=== PATIENT | male | born 1955 | race Caucasian/White ===

== ENCOUNTER 2024-07-17 12:57 | Inpatient (IN) ==
[2024-07-17 14:04] LABS: Hematocrit (blood only) 34.7 % (42.0-52.0); Hemoglobin 11.7 g/dl (14.0-18.0); Mean Corpuscular Hemoglobin 29.1 pg (25.0-34.0); Mean Corpuscular Hgb Conc 33.7 g/dL (32.0-36.0); Mean Corpuscular Volume 86.3 fL (80.0-100.0); Mean Platelet Volume 10.1 fL (9.4-12.4); Platelet Count 292 K/uL (130-400); RDW Coefficient of Variation 13.4 % (11.5-14.5); RDW Standard Deviation 41.5 fL (36.4-46.3); Red Blood Count 4.02 M/uL (4.70-6.10); White Blood Count 9.02 K/ul (4.8-10.8)
[2024-07-17 14:17] LABS: Albumin Globulin Ratio 1.7 (0.9-2); Albumin Level 4.1 gm/dl (3.4-5.0); BUN Creatinine Ratio 32.1 (10-20); Calcium 8.8 mg/dl (8.6-10.3); Creatinine Clr Calc Pharmacy 76.5 ml/min; Globulin 2.4 gm/dl (2.5-4.0); Potassium 4.3 mmol/L (3.5-5.1); Total Protein 6.5 gm/dl (6.0-8.3)
[2024-07-17 14:27] LABS: INR 1.1 (0.9-1.1); Partial Thromboplastin Ratio 0.9; Partial Thromboplastin Time 23 Seconds (21-31)
[2024-07-17] MEDS: PANTOprazole 80 MG in DEXTROSE 5% 100 ML IV ONE (16:43)
[2024-07-17] MEDS: PANTOPRAZOLE BOLUS/DRIP IV STA (16:43)
[2024-07-17] MEDS: PANTOprazole 40 MG in DEXTROSE 5% MINI-B 100 ML IV SCH (17:01)
--- NOTE | 2024-07-17 17:06 | History & Physical Report ---
Date of Service July 17, 2024 Assessment & Plan (1) Gastrointestinal hemorrhage with melena: (2) Acute blood loss anemia: Plan: 69 year old male with history of recurrent DVT on Coumadin, CAD, status post stent placement on aspirin, bradycardia status post pacemaker, other problems below presenting with melena which started last week. Melena Acute blood loss anemia On chronic Coumadin for recurrent DVT, on chronic aspirin for CAD Hemoglobin last Thursday at [facility] 11 as per patient, currently 11.7 Last bowel movement was Thursday, 2 days ago Will order CT abdomen and pelvis H&H every 6 hours Transfuse for hemoglobin below 8 given history of CAD, Transfusion consent obtained, placed in patient's chart Protonix drip N.p.o., IV fluids GI consulted CAD, status post stent No cardiac symptoms Hold aspirin in light of GI bleed Hold lisinopril in light of marginal blood pressure Continue metoprolol Bradycardia, status post pacemaker History of recurrent DVT Most recent episode 2022 Hold Coumadin GI evaluation per above Resume Coumadin once cleared by GI service History of obstructive sleep apnea Will verify if patient uses BiPAP DVT prophylaxis SCDs Full code Disposition lives at home History of Present Illness Chief Complaint: melena Primary Care Provider: Mich Browne PA-C 69 year old male with history of recurrent DVT on Coumadin, CAD, status post stent placement on aspirin, bradycardia status post pacemaker, other problems below presenting with melena which started last week. Patient reports that he started to have melena last and went to [facility] for evaluation last Thursday. His hemoglobin was found to be 11 and INR 3.0. He was given vitamin K and was advised to be admitted. However patient states he declined admission at the time. He was given vitamin K p.o. to take at home which the patient has been taking. As per patient, he has had no bowel movement since Thursday. Denies abdominal pain, nausea vomiting, fevers or chills. He does report some lightheadedness with ambulation, but no chest pain, shortness of breath. Today at [facility], blood pressure 115/79, heart rate 60, respiratory 20, 100% on room air. Hemoglobin 11.7, INR 1.1 Patient given Protonix drip. On exam patient seen resting in bed, comfortable, doing sudoku puzzles, not in distress. States he feels fine overall, no melena since Thursday, no abdominal pain, nausea or vomiting. No active chest pain, shortness of breath, dizziness, palpitations, etc. Allergies Allergy/AdvReac Type Severity Reaction Status Date / Time ceftriaxone Allergy Rash and Verified 07/17/24 16:56 muscle pain..per [facility] [place] Medications Medication Instructions Recorded Confirmed Type aspirin 81 mg tablet,delayed 81 mg PO DAILY 07/17/24 07/17/24 History release cholecalciferol (vitamin D3) 50 50 mcg PO DAILY 07/17/24 07/17/24 History mcg (2,000 unit) capsule (Vitamin D3) lisinopril 20 mg tablet 10 mg PO DAILY 07/17/24 07/17/24 History metoprolol succinate 25 mg 25 mg PO QAM 07/17/24 07/17/24 History tablet,extended release 24 hr rosuvastatin 5 mg tablet 5 mg PO DAILY 07/17/24 07/17/24 History warfarin 5 mg tablet See Rx Instructions .Route .COMPLEX 07/17/24 07/17/24 History Past Med/Surg History Problem List (Updated 07/17/24 @ 17:32 by Jeovanny Pond MD) Acute blood loss anemia Gastrointestinal hemorrhage with melena Social History Smoking Status: Never smoker Preferred Language: Urdu Feels Safe at Home: Yes Review of Systems Review of Systems: all noted and negative except for above Physical Exam Physical Exam: General- oriented x 3, not in distress, speaks in sentences with no effort or accessory muscle use Head- atraumatic Eyes- PERRL, EOMI, anicteric ENT- oropharynx clear Neck- supple, no JVD, no adenopathy, no thyromegaly; carotids +2/2, no bruits appreciated Lungs- clear to auscultation bilaterally, no rales/wheezes Heart- normal rate, regular rhythm; no murmur, no gallop, no rub appreciated Abdomen- normal bowel sounds, nondistended, soft, nontender, no masses or hepatosplenomegaly Extremities- no pretibial edema, no calf tenderness; peripheral pulses intact Neuro- alert, oriented x 3; CN 2-12 grossly intact; motor 5/5 bilaterally;sensation 100% on all extremities; no other gross focal neurologic deficits Skin- warm & dry Results & Data Results & Data Vital Signs (Past 12 Hours) Vital Signs Temp Pulse Pulse Resp BP BP Pulse Ox 07/17/24 16:00 60 17 114/73 95 07/17/24 15:30 121/80 07/17/24 15:30 63 26 H 99 07/17/24 15:12 68 17 98 07/17/24 15:06 60 17 99 07/17/24 14:57 60 07/17/24 14:55 60 14 112/77 99 07/17/24 14:54 60 18 99 07/17/24 14:51 63 18 99 07/17/24 13:06 36.8 C 60 20 115/79 100 O2 Del Method 07/17/24 16:00 07/17/24 15:30 07/17/24 15:30 07/17/24 15:12 07/17/24 15:06 07/17/24 14:57 07/17/24 14:55 Room Air 07/17/24 14:54 Room Air 07/17/24 14:51 07/17/24 13:06 Room Air all noted and negative except for above Code Status & VTE Plan VTE Prophylaxis Plan VTE Prophylaxis will be ordered: Yes
--- OUTSIDE RECORDS SUMMARY | 2024-07-17 18:10 | External Medical Summary ---
Author Name Unknown Address Unknown Organization K01:LABORATORY [facility] [place] - [address] [place] [address] Laboratory Report Ordering Provider Test Date Status ABDELRAHMANCAMWAYNE 05/16/2024 07:22:09 Final Standing order for pt/inr. < br/>Please draw pt/inr every 1 to 4 weeks as requested
Results to [facility]

Warfarin Therapy
INR: 2.0-3.0 conventional anticoagulation
INR: 2.5-3.5 high intensity anticoagulation Observation Date Value Abnormality Reference (Units ) Status PT 05/16/2024 07:22:09 25.0 Above high normal 11 .6-15.2 (seconds) Final INR 05/16/2024 07:22:09 2.2 Above high normal 0. 8-1.2 Final Performing Location [facility]AT[facility] [place] [facility] [address] [facility] [address]
--- OUTSIDE RECORDS SUMMARY | 2024-07-17 18:10 | External Medical Summary | Summary of Care ---
Author Name Unknown Organization [facility] Address [address] [place] [facility] [place] [address] Phone [phone] Care Team Providers Care Soft Work Cigar Machine Operator Name Role Phone Mich Browne PA-C Primary Care Provide r Reason for Visit * Reason Comments Dosage Adjustment Via Phone (anticoag Cl inic) Encounter Details Date Type Department Care Team (Late st Contact Info) Description 05/17/2024 6:15 AM EST Anticoagulation Centralized Clinical Pharm[facility] Services, Rachael Erickson [address] [place] [address] [place] [address] [place] [address] History of recurrent deep vein thrombosis (DVT)* Allergies Active Allergy Reactions Criticality Noted Date Comments Ceftriaxone Muscle pain,Rash High 08/26/2010 RASH, MYALGIAS, SYNOVITIS documented as of this encounter (statuses as of 05/17/2024) Medications Aspirin 81 MG Tablet Take 1 Tablet by mouth in the morning. Active nitroglycerin (NITROSTAT) 0.4 MG SUBL 03/15/20 19 Active Cholecalciferol (VITAMIN D) 50 MCG (1999 UT) Capsule Take 2,000 Units by mouth daily. Active doxycycline hyclate 100 MG Capsule Take 1 tab daily as needed 30 Cap 5 06/17/20 19 Active Lisinopril 20 MG Oral Tablet (Prinivil) 0.5 Tablets. 10/16/19 23 Active Warfarin Sodium 5 MG Oral Tablet (Coumadin) Take 1 Tablet by mouth every evening. 30 Tablet 5 02/17/20 23 Active Additional Information Patient taking differently: 7.5 mgOral QPM-1999, Reported on 03/02/2023 Metoprolol Succinate ER 25 MG Oral Tablet Extended Release 24 Hour (toPROL XL) Take 1 Tablet by mouth in the morning. 08/10/19 24 Active Sildenafil Citrate 100 MG Oral TabletIndications: Erectile dysfunction, unspecified erectile dysfunction type Take 1 Tablet by mouth daily as needed for Erectile Dysfunction. 10 Tablet 5 03/18/20 24 Active Warfarin Sodium 5 MG Oral Tablet (Jantoven) TAKE 1.5 to 2 TABLETS BY MOUTH DAILY DIRECTED BY COUMADIN CLINIC ON PHONE 180 Tablet 1 05/12/20 24 Active Rosuvastatin Calcium 5 MG Oral Tablet (Crestor)Indicatio ns:S/P angioplasty with stent,Mixed hyperlipidemia Take 1 Tablet by mouth in the morning. In the morning.. 90 Tablet 3 05/16/20 24 Active documented as of this encounter (statuses as of 05/17/2024) Active Problems Problem Noted Date Diagnosed Date Coronary artery disease invo lving [place] coronary artery of [place] heart without angina pectoris 08/12/2023 LISA (obstructive sleep apnea) 08/12/2023 History of recurrent deep vein thrombosis (DVT) 08/12/2023 Gilbert's disease 09/29/2022 S/P angioplasty with stent 04/16/2022 Overview (04/16/2022): LAD. Hyperlipidemia with target LDL less than 70 01/03 Status post placement of implantable loop record er 01/21/2022 Nocturia 01/21/2022 Vitamin D deficiency 01/21/2022 Non-recurrent unilateral inguinal hernia 022 History of nonmelanoma skin cancer 05/21/2017 Overview (05/21/2017): Hx of BCC on left neck - 2011 History of dysplastic nevus 05/31/2014 Actinic keratosis 06/01/2013 History of basal cell carcinoma 06/01/2013 Eosinophilia 09/24/2010 HX TRAUMATIC FRACTURE, LFT LEG 08/13/2010 documented as of this encounter (statuses as of 05/17/2024) Resolved Problems Problem Noted Date Diagnosed Date Resolved Date Prediabetes 08/12/2023 08/20/2023 Acute deep vein thrombosis ( DVT) of axillary vein of left upper extremity 02/13/2023 08/20/2023 Abrasion of arm, left 01/21/20222021 Neoplasm of uncertain behavior of skin 06/01/2013 01/21/2022 Rosacea 06/01/2013 01/21/2022 Other seborrheic keratosis 06/01/2013 0 01/21/2022 BLEPHARITIS, left eye 09/24/20102021 Venous thrombosis 08/22/2010 01/21/2022 TENOSYNOVITIS, RIGHT FOOT 08/18/2010 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 VASCULITIS 08/18/2010 01/21/2022 Rash and nonspecific skin eruption 08/17/2010 01/21/2022 DERMATITIS 08/13/2010 01/21/2022 SEPTIC [id number] 08/13/201001/03 Abnormal electrocardiogram 11/23/2009 0 2023 Loss of height 11/23/2009 01/21/2022 documented as of this encounter (statuses as of 05/17/2024) Immunizations Name Administration Dates Next Due COVID-19 mRNA, LNP-s, No Pre serve, 2-Dose Series (Pfizer) 09/12/2020,08/14/2020 PPD 02/16/2023 Pneumococcal Conjugate Vaccine, 20-valent (Prevn ar20) 09/29/2022 Seasonal Influenza, High Dos e, Trivalent, PF, IM (Fluzone HD) 03/18/2024 Seasonal Influenza, Quadrivalent Hd (Fluzone Hd) 04/16/2022 TDAP (age 10 and older)(Boostrix) 01/21/2022 documented as of this encounter Social History Tobacco Use Types Packs/Day Years Used Date Smoking Tobacco: Never Smokeless Tobacco: Never Alcohol Use Standard Drinks/Week Comments Yes 0 (1 standard drink = 0.6 oz pur e alcohol) moderation PHQ-2 Answer Date Recorded PHQ Adult Total Score 0 05/11/2023 Hunger Vital Sign Answer Date Recorded Within the past 12 months, y ou worried that your food would run out before you got the money to buy more. Never true 05/11/20 23 Within the past 12 months, t he food you bought just didn't last and you didn't have money to get more. Never true 05/11/2023 Childcare Answer Date Recorded Do you feel overwhelmed with taking care of a child, family member or friend? No 05/11/2023 Does your family need help f inding childcare? (Household - for ages 0-17 years) Not on file 05/11/2023 Clothing Answer Date Recorded Have you been unable to get clothing when it was really needed? No 05/11/2023 Is your family able to get c lothes or diapers when needed? (Household - for ages 0-17 years) Not on file 05/11/2023 Personal Safety Answer Date Recorded Do you feel unsafe or have concerns for your saf ety? No 05/11/2023 Do you have concerns for you r family's safety? (Household - for ages 0-17 years) Not on file 05/11/2023 Utilities Answer Date Recorded Do you have trouble paying y our heating, water, or electric bill? (Adult - for ages 18 years and over) Not on file 05/12/2024 Is your family able to pay t he heat, water, or electric bill? (Household - for ages 0-17 years) Not on file 05/12/2024 Does your family have access to good internet? (Household - for ages 0-17 years) Not on file 05/12/2024 Employment Status Answer Date Recorded Are you unemployed or without regular income? No 05/11/2023 Does the household have a re lar source of income? (Household - for ages 0-17 years) Not on file 05/11/2023 Social Connections Answer Date Recorded How often do you feel lonely or isolated from those around you? (Adult - for ages 18 years and over) Not on file 05/12/2024 Financial Resource Strain Answer Date R ecorded Do you have any trouble payi ng for your medications, or do you think you might in the future? No 05/11/2023 Does your family have troubl e paying for medicine? (Household - for ages 0-17 years) Not on file 05/11/2023 Transportation Needs Answer Date Record ed READ ONLY Do you have troubl e getting a ride to medical visits or work? Never True 05/11/2023 Does your family have a hard time getting a ride to doctors visits? (Household - for ages 0-17 years) Not on file 05/11/2023 Has lack of transportation k ept you from medical appointments, meetings, work, or from getting things needed for daily living? Check all that apply. (Adult - for ages 18 years and over) Not on file 05/11/2023 Do you (or your family) have trouble finding or paying for a ride (transportation)? (Household - for ages 0-17 years) Not on file 05/11/2023 Housing Stability Answer Date Recorded Do you currently live in a s helter or have no steady place to sleep at night? No 05/11/2023 READ ONLY Do you think you a re at risk of becoming homeless? No 05/11/2023 Does your family worry about paying for your home or becoming homeless? (Household - for ages 0-17 years) Not on file 1 07/11/2022 Are you homeless or worried that you might be in the future? (Adult - for ages 18 years and over) Not on file Are you (or your family) ezra eless or worried that you might be in the future? (Household - for ages 0-17 years) Not on file Food Insecurity Answer Date Recorded Do you need food for this week? No 05/11/2023 Are you able to get enough f ood for your family? (Household - for ages 0-17 years) Not on file 05/11/2023 Does your family need food t his week? (Household - for ages 0-17 years) Not on file 05/11/2023 Do you always have enough fo od for your family? (Household - for ages 0-17 years) Not on file 05/11/2023 Sex and Gender Information Value Date Recorded Sex Assigned at Male 05/11/2023 8:24 AM EST Legal Sex Male 6:45 AM EST Gender Identity Male 05/11/2023 8:24 AM EST Sexual Orientation Straight 05/11/2023 8: 24 AM EST documented as of this encounter Progress Notes * Caroline Kidd PHARM Tech - 05/17/2024 9:11 AM EST Contacts Contact Date/Time Type Contact Phone/Fax 05/17/2024 09:09 AM EST Phone (Outgoing) Jatin Muñiz (Self) [phone] (M) spoke to pt Subjective Patient Findings Negatives: Signs/symptoms of bleeding, Change in health, Change in activity, Upcoming invasive procedure, Missed doses, Extra doses, Change in medications, Change in diet/appetite, Bruising Advised patient to contact Anticoagulation Clinic if any unusual bruising or bleeding, recent illness, changes in medication, or questions/concerns. PT/INR results, Coumadin dose instructions, and next PT/INR date communicated as noted by Pharmacist: Yes ORTIZ DEL TORO 05/17/2024, 9:11 AM * Kalpana Canales RPh - 05/17/2024 8:59 AM EST Coumadin Clinic (region specific) Objective Current Warfarin Dose As of 05/17/2024 Warfarin maintenance plan: 10 mg (5 mg x 2) every Mon; 7.5 mg (5 mg x 1.5) all other days INR Result As of 05/17/2024 INR goal: 2.0-3.0 INR used for dosin.2 (05/16/2024) Assessment & Plan Warfarin Plan As of 05/17/2024 Full warfarin instructions: 10 mg every Mon; 7.5 mg all other days No change documented: Kalpana Canales RPh Next INR check: 05/30/2024 Repeat PT/INR in 2 week(s) Weekly dose: not changed Additional Dosing Information: Description [facility] 05/17/24 Tech to contact patient with dose instructions as noted. Kalpana Canales RPh 05/17/2024, 8:59 AM documented in this encounter Plan of Treatment Upcoming Encounters Date Type Department Care Team (Late st Contact Info) Description 06/14/2024 11:00 AM EST Office Visit Hematology/Oncology [address] [place] [address] [facility] [place], [place] [address] Lawrence Harris MD [address] [facility] [place] [address] 10/10/2024 8:00 AM EDT Office Visit Family Practice [address] [place] [address] Mich Browne PA-C [address] [place] [address] 10/13/2024 9:20 AM EDT Office Visit Dermatology, Alysa Pelayo [address] [place] [address] Jennifer Graham PA-C [address] [place] [address] Health Maintenance Due Date Last Done Comments Hepatitis C Screening 1973 Cologuard 01/14/2000 Fecal Occult Blood Test 01/14/2000 Sigmoidoscopy 01/14/2000 Zoster Vaccines (1 of 2) 2005 Adult Wellness Visit 2021 Colonoscopy 11/19/2023 11/18/2013 Colorectal Cancer Screening 11/19/2023 COVID-19 Vaccine ( season) 2024 09/12/2020, 08/14/2020 Depression Screening 05/11/2024 05/11/2023 Diabetes Screening 03/18/2027 03/18/2024, 0 03/18/2024, 12/11/2023, Additional history exists DTap/Tdap Vaccines (2 - Td or Tdap) 01/22/2032 01/21/2022 Pneumococcal Vaccine: 65+ Years Completed 09/29/2022 Influenza Vaccine (FLU shot) Completed 03/18/2024, 04/16/2022 HPV (Gardasil) Vaccine Aged Out No lo nger eligible based on patient's age to complete this topic Hepatitis B Vaccine Aged Out No longe r eligible based on patient's age to complete this topic MENINGOCOCCAL (MENACTRA/MENVEO) Aged Out No longer eligible based on patient's age to complete this topic documented as of this encounter Medical Devices Not on filedocumented as of this encounter Visit Diagnoses Diagnosis History of recurrent deep vein thrombosis (DVT)- Primary documented in this encounter Advance Directives * Full Code (Latest Code Status on File) Date Activated Date Inactivated Comments 08/17/2010 7:22 PM 08/22/2010 9:54 PM This order r eflects the patients wishes and were consensually agreed upon. Question Answer Comments Discussion of Advance Directives occurred with: Patient Does the patient have a Living Will? No Does the patient have Health Care Power of Attor janice? No Care Teams Soft Work Cigar Machine Operator Relationship Specialty Start Date End Date Mich Browne PA-C [address] [facility] [place] [address] PCP - General Physician Well Logger 10/08/23 documented as of this encounter
--- OUTSIDE RECORDS SUMMARY | 2024-07-17 18:10 | External Medical Summary ---
Author Name Unknown Address Unknown Organization K01:[place] [facility] [place] [address] [place] [address] Laboratory Report Ordering Provider Test Date Status ABDELRAHMANCAMWAYNE 05/30/2024 08:18:11 Final Standing order for pt/inr. < br/>Please draw pt/inr every 1 to 4 weeks as requested
Results to [facility]ticoagulation [facility]

Warfarin Therapy
INR: 2.0-3.0 conventional anticoagulation
INR: 2.5-3.5 high intensity anticoagulation Observation Date Value Abnormality Reference (Units ) Status PT 05/30/2024 08:18:11 29.3 Above high normal 11 .6-15.2 (seconds) Final INR 05/30/2024 08:18:11 2.7 Above high normal 0. 8-1.2 Final Performing Location [facility] [place] [facility] [address] [facility] [address]
--- OUTSIDE RECORDS SUMMARY | 2024-07-17 18:10 | External Medical Summary | Summary of Care ---
Author Name Unknown Organization [facility] Address [address] [place] [facility] [address] Phone [phone] Care Team Providers Care Manager Infusion Name Role Phone Mich Browne PA-C Primary Care Provide r Reason for Visit * Reason Comments Dosage Adjustment Via Phone (anticoag Cl inic) Encounter Details Date Type Department Care Team (Late st Contact Info) Description 05/16/2024 6:00 PM EST Anticoagulation Centralized Clinical Pharmacy Services, Rachael Erickson [address] [place] [address] [place] [address] [place] [address] History of recurrent deep vein thrombosis (DVT)* Allergies Active Allergy Reactions Criticality Noted Date Comments Ceftriaxone Muscle pain,Rash High 08/26/2010 RASH, MYALGIAS, SYNOVITIS documented as of this encounter (statuses as of 05/16/2024) Medications Aspirin 81 MG Tablet Take 1 [...] as of this encounter (statuses as of 05/16/2024) Active Problems Problem Noted Date Diagnosed Date Coronary artery disease invo lving [place] coronary artery of [place] heart without angina pectoris 08/12/2023 LISA (obstructive [...] as of this encounter (statuses as of 05/16/2024) Resolved Problems Problem Noted Date Diagnosed Date [...] eruption 08/17/2010 01/21/2022 DERMATITIS 08/13/2010 01/21/2022 SEPTIC [id number] 08/13/201001/03 Abnormal electrocardiogram 11/23/2009 0 2023 Loss of height 11/23/2009 01/21/2022 documented as of this encounter (statuses as of 05/16/2024) Immunizations Name Administration Dates Next Due COVID-19 [...] as of this encounter Progress Notes * Kalpana Canales RPh - 05/16/2024 4:19 PM EST 05/16/2024 04:19 PM EST by Kalpana Canales RPh Outgoing Jatin Muñiz (Self) Remove Left Message INR still in process at lab. Last INR was 2.0 on 05/06. Advised to take regular dose tonight. Will check result in AM and follow up with pt . Kalpana Bowens. Jaime Canales, Pharm.D. Clinical Pharmacist [facility] ([facility]) [phone] 05/16/2024,4:21 PM documented in this encounter Plan of Treatment Upcoming Encounters Date Type Department Care Team (Late st Contact Info) Description 05/17/2024 6:15 AM EST Anticoagulation Centralized Clinical Pharmacy Services, Rachael Erickson [address] [place] [address] [place] [address] [facility], [address] [place] [address] 05/17/2024 7:45 AM EST Office Visit [facility] Surgery [facility] [place] [address] [place] [address] Kalpana Ellsworth MD [address] [facility] [place] [address] 06/14/2024 11:00 AM EST Office Visit Hematology/Oncology [facility] [place] [address] [facility] [place] [id number] Lawrence Harris MD [address] [facility] [place] [address] 10/10/2024 8:00 AM EDT Office Visit [facility] [address] [place] [address] Mich Browne PA-C [address] [place] [address] 10/13/2024 9:20 AM EDT Office Visit Dermatology, Yaritza MarvinAlysa [address] [place] [address] Jennifer Graham PA-C [address] [place] [address] Health Maintenance Due Date Last Done Comments [...] Power of Attor janice? No Care Teams Manager Infusion Relationship Specialty Start Date End Date Mich Browne PA-C [address] [facility] [place] [address] PCP - General Physician Computer Systems Manager 10/08/23 documented as of this encounter
--- OUTSIDE RECORDS SUMMARY | 2024-07-17 18:10 | External Medical Summary | Summary of Care ---
Author Name Unknown Organization [facility] Address [address] [place] [address] Phone [phone] Care Team Providers Care Supervisor Toy Parts Former Name Role Phone Mich Browne PA-C Primary Care Provide r Reason for Visit * Reason Comments Dosage Adjustment Via Phone (anticoag Cl inic) Encounter Details Date Type Department Care Team (Late st Contact Info) Description 05/31/2024 6:15 AM EST Anticoagulation [facility], Rachael Erickson [address] [place] [address] [place] [address] [place] [address] History of recurrent deep vein thrombosis (DVT)* Allergies Active Allergy Reactions Criticality Noted Date Comments Ceftriaxone Muscle pain,Rash High 08/26/2010 RASH, MYALGIAS, SYNOVITIS documented as of this encounter (statuses as of 05/31/2024) Medications Aspirin 81 MG Tablet Take 1 [...] as of this encounter (statuses as of 05/31/2024) Active Problems Problem Noted Date Diagnosed Date [...] as of this encounter (statuses as of 05/31/2024) Resolved Problems Problem Noted Date Diagnosed Date [...] eruption 08/17/2010 01/21/2022 DERMATITIS 08/13/2010 01/21/2022 SEPTIC [id number] 08/13/201001/03 Abnormal electrocardiogram 11/23/2009 0 2023 Loss of height 11/23/2009 01/21/2022 documented as of this encounter (statuses as of 05/31/2024) Immunizations Name Administration Dates Next Due COVID-19 [...] y our heating, water, or electric bill? No 05/11/2023 Is your family able to pay t he heat, water, or electric bill? (Household - for ages 0-17 years) Not on file 05/11/2023 Does your family have access to good internet? (Household - for ages 0-17 years) Not on file 05/11/2023 Employment Status Answer Date Recorded Are you unemployed or without regular income? No 05/11/2023 Does the household have a re lar source of income? (Household - for ages 0-17 years) Not on file 05/11/2023 Social Connections Answer Date Recorded How often do you feel lonely or isolated from th ose around you? Never 05/11/2023 Financial Resource Strain Answer Date R ecorded [...] as of this encounter Progress Notes * Evelina Schmidt, [facility] - 05/31/2024 3:15 PM EST Contacts Contact Date/Time Type Contact Phone/Fax 05/31/2024 11:03 AM EST Phone (Outgoing) Jatin Muñiz (Self) [phone] (M) No Answer/Busy - No ID on VM 05/31/2024 03:14 PM EST Phone (Outgoing) ModestojonathanJatin bean (Self) [phone] (M) No Answer/Busy - No identifier on VM Unable to contact patient or leave message. MyG: no Please follow-up later. Thank you, Evelina Schmidt [facility] Filament Maker II [facility] Services ([facility]) 05/31/2024,3:15 PM * Kalpana Canales RPh - 05/31/2024 10:17 AM EST Contacts Contact Date/Time Type Contact Phone/Fax 05/31/2024 11:03 AM EST Phone (Outgoing) Jatin Muñiz (Self) [phone] (M) No Answer/Busy - No ID on 05/31/2024 03:14 PM EST Phone (Outgoing) Jatin Muñiz (Self) [phone] (M) No Answer/Busy - No identifier on 05/31/2024 03:31 PM EST Phone (Outgoing) Jatin Muñiz (Self) [phone] (M) Left Message Subjective Advised patient to contact Anticoagulation Clinic if any unusual bruising or bleeding, recent illness, changes in medication, or questions/concerns. PT/INR results, Coumadin dose instructions, and next PT/INR date communicated as noted by Pharmacist: Yes Advised to add name to so we can leave messages going forward. Kalpana Canales RPh 05/31/2024, 3:32 PM Coumadin Clinic (region specific) Objective Current Warfarin Dose As of 05/31/2024 Warfarin maintenance plan: 10 mg (5 mg x 2) every Mon; 7.5 mg (5 mg x 1.5) all other days INR Result As of 05/31/2024 INR goal: 2.0-3.0 INR used for dosin.7 (05/30/2024) Assessment & Plan Warfarin Plan As of 05/31/2024 Full warfarin instructions: 10 mg every Mon; 7.5 mg all other days No change documented: Kaplana Canales RPh Next INR check: 06/20/2024 Repeat PT/INR in 3 week(s) Weekly dose: not changed Additional Dosing Information: Description [facility] 05/17/24 Tech to contact patient with dose instructions as noted. Kalpana Canales RPh 05/31/2024, 10:17 AM documented in this encounter Plan of Treatment Upcoming Encounters Date Type Department Care Team (Late st Contact Info) Description 06/14/2024 11:00 AM EST Office Visit Hematology/Oncology [place] [address] [facility] [place] [phone] Lawrence Harris MD [address] [facility] [place] [address] 06/20/2024 8:30 AM EST Laboratory [facility] [place] [address] [place] [id number] [place], [facility] [place] Jitendra [address] [place] [address] 06/21/2024 6:15 AM EST Anticoagulation [facility] Services, Rachael Erickson [address] [place] [address] [place] [address] [place] [address] 10/10/2024 8:00 AM EDT Office Visit Family Practice [address], [address] [place] [address] Mich Browne PA-C [address] [place] [address] 10/13/2024 9:20 AM EDT Office Visit Dermatology, Alysa Pelayo [address] [place] [address] Jennifer Graham PA-C [address] [place] [address] Health Maintenance Due Date Last Done Comments [...] Power of Attor janice? No Care Teams Supervisor Toy Parts Former Relationship Specialty Start Date End Date Mich Browne PA-C [address] [facility] [place] [address] PCP - General Physician Lodging Facilities Attendant 10/08/23 documented as of this encounter
--- OUTSIDE RECORDS SUMMARY | 2024-07-17 18:10 | External Medical Summary | Summary of Care ---
Author Name Unknown Organization [facility] Address [address] [place] [place] [address] Phone [phone] Care Team Providers Care Offset Machine Operator Name Role Phone Mich Browne PA-C Primary Care Provide r Reason for Visit * Reason Comments Follow Up 6 month follow up Encounter Details Date Type Department Care Team (Late st Contact Info) Description 06/16/2024 2:30 PM EST Office Visit Hematology/Oncology [facility] [address] [place] [address] Juliann Kurtz, KALIE [address] [place] [address] History of recurrent deep vein thrombosis (DVT)* Allergies Active Allergy Reactions Criticality Noted Date Comments Ceftriaxone Muscle pain,Rash High 08/26/2010 RASH, MYALGIAS, SYNOVITIS documented as of this encounter (statuses as of 06/16/2024) Medications Aspirin 81 MG Tablet Take 1 [...] as of this encounter (statuses as of 06/16/2024) Active Problems Problem Noted Date Diagnosed Date Coronary artery disease invo lving [place] coronary artery of [place] heart without angina pectoris 08/12/2023 LISA (obstructive [...] as of this encounter (statuses as of 06/16/2024) Resolved Problems Problem Noted Date Diagnosed Date [...] eruption 08/17/2010 01/21/2022 DERMATITIS 08/13/2010 01/21/2022 SEPTIC [id number] 08/13/201001/03 Abnormal electrocardiogram 11/23/2009 0 2023 Loss of height 11/23/2009 01/21/2022 documented as of this encounter (statuses as of 06/16/2024) Immunizations Name Administration Dates Next Due COVID-19 [...] No 05/11/2023 Does the household have a unm children's hospitallar source of income? (Household - for ages [...] AM EST documented as of this encounter Last Filed Vital Signs Vital Sign Reading Time Taken Comments Blood Pressure 134/80 06/16/2024 2:41 PM EST Pulse 102 06/16/2024 2:41 PM EST Temperature 36.2 C (97.2 F) 06/16/2024 2:41 PM ES T Respiratory Rate - - Oxygen Saturation 97% 06/16/2024 2:41 PM EST Inhaled Oxygen Concentration - - Weight 103.5 kg (228 lb 3.2 oz) 06/16/2024 2:41 PM EST Height - - Body Mass Index 30.95 03/18/2024 8:13 AM EDT documented in this encounter Progress Notes * Juliann Kurtz CRNP - 06/16/2024 2:49 PM EST Hematology/Oncology Outpatient Clinic note [facility] [place] [address] [place] [address] Name: Jatin Muñiz Date: 06/16/2024 CHIEF COMPLAINT: Jatin Muñiz is a 69 year old male patient of Dr. Lawrence Harris here today for f/u visit From Patient chart confirmed history with patient. From Dr. Bravo Kimberly note 12/14/23 Diagnosis: Acute deep vein thrombosis (DVT) of axillary vein of left upper extremity Current Treatment: Coumadin Previous Treatment: Eliquis History : 69-year-old male with past medical history significant for coronary artery disease status post stent placement about 5 years ago, history of bradycardia status post pacemaker placement in 10/2022 presented with feeling of swelling and pressure in the left upper extremity on 12/2022. Doppler ultrasound was done which revealed evidence of acute DVT in the left upper extremity involving the subclavian and axillary veins and there was evidence of acute superficial thrombophlebitis in the basilic vein. Patient was started on Eliquis. He subsequently went to the urgent care with swelling and anticoagulation was changed to Lovenox with transition to Coumadin. Currently he is taking Coumadin and following anticoagulation clinic. He is feeling better with improvement in the pressure and swelling of the left lower extremity. History is also significant for left lower extremity DVT after the fracture of the left lower extremity. Denies smoking. Drinks rarely. Family history is negative for any hematologic oncology problem or DVT or pulmonary embolism. 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 Currently here for f/u visit today. He is taking Coumadin without any issues. No excessive bruising or bleeding. He does haveINR completed. No fever or chills. No unusual headache or dizziness. No chest pain, palpitation or shortness of breath. No issues with abdominal pain, cramping, constipation or diarrhea. No urinary issues. 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 DERMATITIS 08/13/2010 History of loop recorder HX TRAUMATIC FRACTURE, LFT LEG 08/13/2010 Loss of height 11/23/2009 Rash and nonspecific skin eruption 08/17/2010 SEPTIC [id number] 08/13/2010 TENOSYNOVITIS, RIGHT FOOT 08/18/2010 VASCULITIS 08/18/2010 Venous thrombosis 08/22/2010 Past Surgical History: Procedure Laterality Date CARDIAC STENT PLACEMENT, ATHERECTOMY, 1 VESSEL HC RIGHT HEART CATH KNEE ARTHROSCOPY/SURGERY 07/06/1973 open menisectomy, right Social History Socioeconomic History Marital status: Spouse name: Not on file Number of children: 3 Years of education: Not on file Highest education level: Not on file Occupational History Not on file Tobacco Use Smoking status: Never Smokeless tobacco: Never Vaping Use Vaping status: Never Used Substance and Sexual Activity Alcohol use: Yes Comment: moderation Drug use: No Sexual activity: Yes Partners: Female Other Topics Concern Not on file Social History Narrative Not on file Social Needs Financial Resource Strain: Low Risk (05/11/2023) Financial Resource Strain Do you have any trouble paying for your medications, or do you think you might in the future? (Adult - for ages 18 years and over): No Does your family have trouble paying for medicine? (Household - for ages 0-17 years): Not on file Food Insecurity: No Food Insecurity (05/11/2023) Food Insecurity Do you need food for this week? (Adult - for ages 18 years and over): No Are you able to get enough food for your family? (Household - for ages 0-17 years): Not on file Does your family need food this week? (Household - for ages 0-17 years): Not on file Do you always have enough food for your family? (Household - for ages 0-17 years): Not on file Transportation Needs: No Transportation Needs (05/11/2023) Transportation Needs Do you have trouble getting a ride to medical visits or work? (Adult - for ages 18 years and over):Never True Does your family have a hard time getting a ride to doctors visits? (Household - for ages 0-17 years): Not on file Has lack of transportation kept you from medical appointments, meetings, work, or from getting things needed for daily living? Check all that apply. (Adult - for ages 18 years and over): Not on file Do you (or your family) have trouble finding or paying for a ride (transportation)? (Household - for ages 0-17 years): Not on file Social Connections: Socially Integrated (05/11/2023) Social Connections How often do you feel lonely or isolated from those around you? (Adult - for ages 18 years and over): Never Housing Stability: Low Risk (05/11/2023) Housing Stability Do you currently live in a fci or have no steady place to sleep at night? (Adult - for ages 18 years and over): No Do you think you are at risk of becoming homeless? (Adult - for ages 18 years and over): No Does your family worry about paying for your home or becoming homeless? (Household - for ages 0-17 years): Not on file Are you homeless or worried that you might be in the future? (Adult - for ages 18 years and over): Not on file Are you (or your family) homeless or worried that you might be in the future? (Household - for ages0-17 years): Not on file Review of patient's allergies indicates: Allergen Reactions Ceftriaxone Muscle pain and Rash RASH, MYALGIAS, SYNOVITIS Current Outpatient Medications Medication Sig Dispense Refill Aspirin 81 MG Tablet Take 1 Tablet by mouth in the morning. nitroglycerin (NITROSTAT) 0.4 MG SUBL Cholecalciferol (VITAMIN D) 50 MCG (1999 UT) Capsule Take 2,000 Units by mouth daily. doxycycline hyclate 100 MG Capsule Take 1 tab daily as needed 30 Cap 5 Lisinopril 20 MG Oral Tablet (Prinivil) 0.5 Tablets. Warfarin Sodium 5 MG Oral Tablet (Coumadin) Take 1 Tablet by mouth every evening. (Patient taking differently: Take 1.5 Tablets by mouth every evening.) 30 Tablet 5 Metoprolol Succinate ER 25 MG Oral Tablet Extended Release 24 Hour (toPROL XL) Take 1 Tablet by mouth in the morning. Sildenafil Citrate 100 MG Oral Tablet Take 1 Tablet by mouth daily as needed for Erectile Dysfunction. 10 Tablet 5 Warfarin Sodium 5 MG Oral Tablet (Jantoven) TAKE 1.5 to 2 TABLETS BY MOUTH DAILY DIRECTED BY COUMADIN CLINIC ON PHONE 180 Tablet 1 Rosuvastatin Calcium 5 MG Oral Tablet (Crestor) Take 1 Tablet by mouth in the morning. In the morning.. 90 Tablet 3 No current facility-administered medications for this visit. REVIEW OF SYSTEMS: See HPI - otherwise negative OBJECTIVE: Filed Vitals: 06/16/24 1441 BP: 134/80 Pulse: 102 Temp: 36.2 C (97.2 F) TempSrc: Tympanic SpO2: 97% Weight: 103.5 kg (228 lb 3.2 oz) Wt Readings from Last 5 Encounters: 06/16/24 103.5 kg (228 lb 3.2 oz) 03/18/24 100.6 kg (221 lb 12.8 oz) 12/14/23 99.3 kg (219 lb) 08/12/23 99.6 kg (219 lb 9.6 oz) 06/10/23 103.6 kg (228 lb 4.8 oz) PHYSICAL EXAM: ECOG: Performance Status 0 = 100% Normal Activity General Appearance: Normal - Healthy appearing patient in no acute distress HEENT: Normal - No oral or pharyngeal masses, ulceration or thrush noted, no sinus tenderness Lymph Nodes: Normal - No palpable lymph nodes in the neck or supraclavicular areas Lungs/Thorax: Normal - Clear to auscultation Heart: Normal - Regular rate and rhythm, normal S1, S2, no appreciable murmurs, rubs, gallops Pulses/Extremities: Normal - 2+ throughout and symmetrical. Left leg and ankle: mild swelling noted. No other arm/ leg issues Abdomen: Normal - Soft, nontender, bowel sounds present, no appreciable hepatosplenomegaly, no palpable masses Musculoskeletal: Normal - No pain on palpation over bony prominence, no joint or bony deformity Neurologic: Normal - Grossly intact LABS: Results for orders placed or performed in visit on 05/30/24 PT INR Result Value Ref Range Prothrombin Time 29.3 (H) 11.6 - 15.2 seconds INR 2.7 (H) 0.8 - 1.2 Reviewed past CBC and CMP in 03/29 ASSESSMENT: Hx of DVT--stable on Coumadin PLAN: Continue Coumadin RTC 6 months with Kimberly cbc, cmp Follow INR with MTM Call as needed KALIE Beckwith documented in this encounter Nursing Notes * Kalpana Aldridge CMA - 06/16/2024 2:43 PM EST Patient identifed by name and birthdate Do you have any concerns about pain management for today's visit? No Living Will or Advance Directive for Health Care as noted on the problem list. [facility] is a way you can talk to your provider on line through e-mail. Would you like to sign up? I can activate it for you? ALREADY ACTIVE Filed Vitals: 06/16/24 1441 BP: 134/80 Pulse: 102 Temp: 36.2 C (97.2 F) TempSrc: Tympanic SpO2: 97% Weight: 103.5 kg (228 lb 3.2 oz) Patient was instructed to not get up on the exam table/exam chair until directed and assisted by their provider; patient is to remain seated in the chair/ wheelchair/ exam table/ exam chair for fall prevention and safety reasons. Patient is aware to have assistance to step down off exam table/exam chair with personnel. Patient voiced full comprehension of instructions. documented in this encounter Plan of Treatment Upcoming Encounters Date Type Department Care Team (Late st Contact Info) Description 06/20/2024 8:30 AM EST Laboratory Laboratory [address] [place] [address] [place] [address] 06/21/2024 6:15 AM EST Anticoagulation Centralized Clinical Pharmacy Services, Rachael Erickson [address] [place] [address] [place] [address] [place] [address] 10/10/2024 8:00 AM EDT Office Visit Family Practice [place] Jitendra Gallia [address] [place] [address] Mich Browne PA-C [address] [place] [address] 10/13/2024 9:20 AM EDT Office Visit Dermatology, Alysa Pelayo [address] [place] [address] Jennifer Graham PA-C [address] [place] [address] 12/20/2024 3:00 PM EDT Office Visit Hematology/Oncology Perez Castro [place] [address] [facility] [place] [id number] Lawrence Harris MD [address] [facility] [place] [address] Health Maintenance Due Date Last Done Comments [...] Power of Attor janice? No Care Teams Offset Machine Operator Relationship Specialty Start Date End Date Mich Browne PA-C [facility] [place] [address] PCP - General Physician Bin Operator 10/08/23 documented as of this encounter
--- OUTSIDE RECORDS SUMMARY | 2024-07-17 18:10 | External Medical Summary | Summary of Care ---
Author Name Unknown Organization [facility] Address [address] [facility] [place] [address] Phone [phone] Care Team Providers Care Airborne Electronics Analyst Name Role Phone Mich Browne PA-C Primary Care Provide r Reason for Visit * Reason Comments Dosage Adjustment Via Phone (anticoag Cl inic) Encounter Details Date Type Department Care Team (Late st Contact Info) Description 06/21/2024 6:15 AM EST Anticoagulation Centralized Clinical Pharmacy Services, Rachael Erickson [address] [place] [address] [place] [address] [place] [address] History of recurrent deep vein thrombosis (DVT)* Allergies Active Allergy Reactions Criticality Noted Date Comments Ceftriaxone Muscle pain,Rash High 08/26/2010 RASH, MYALGIAS, SYNOVITIS documented as of this encounter (statuses as of 06/21/2024) Medications Aspirin 81 MG Tablet Take 1 [...] as of this encounter (statuses as of 06/21/2024) Active Problems Problem Noted Date Diagnosed Date Coronary artery disease invo lving [place] coronary artery of [place] heart without angina pectoris 08/12/2023 LISA (obstructive [...] as of this encounter (statuses as of 06/21/2024) Resolved Problems Problem Noted Date Diagnosed Date [...] eruption 08/17/2010 01/21/2022 DERMATITIS 08/13/2010 01/21/2022 SEPTIC [id number] 08/13/201001/03 Abnormal electrocardiogram 11/23/2009 0 2023 Loss of height 11/23/2009 01/21/2022 documented as of this encounter (statuses as of 06/21/2024) Immunizations Name Administration Dates Next Due COVID-19 [...] as of this encounter Progress Notes * Hien Harrison, cribbing setter - 06/21/2024 9:47 AM EST Contacts Contact Date/Time Type Contact Phone/Fax 06/21/2024 09:44 AM EST Phone (Outgoing) Antonino Jatin Ross (Self) [phone] (M) Left Message Subjective Advised patient to contact Anticoagulation Clinic if any unusual bruising or bleeding, recent illness, changes in medication, or questions/concerns. PT/INR results, Coumadin dose instructions, and next PT/INR date communicated as noted by Pharmacist: Yes ORTIZ Rviero Tech 06/21/2024, 9:47 AM * Kalpana Canales RPh - 06/21/2024 9:24 AM EST Coumadin Clinic (region specific) Objective Current Warfarin Dose As of 06/21/2024 Warfarin maintenance plan: 10 mg (5 mg x 2) every Mon; 7.5 mg (5 mg x 1.5) all other days INR Result As of 06/21/2024 INR goal: 2.0-3.0 INR used for dosin.8 (06/20/2024) Assessment & Plan Warfarin Plan As of 06/21/2024 Full warfarin instructions: 10 mg every Mon; 7.5 mg all other days No change documented: Kalpana Canales RPh Next INR check: 07/18/2024 Please remind pt to add name to VM so we can leave VM if he hasn't added it since last visit. Repeat PT/INR in 4 week(s) Weekly dose: not changed Additional Dosing Information: Description TextDigger to contact patient with dose instructions as noted. Kalpana Canales RPh 06/21/2024, 9:25 AM documented in this encounter Plan of Treatment Upcoming Encounters Date Type Department Care Team (Late st Contact Info) Description 10/10/2024 8:00 AM EDT Office Visit [facility] [address] [place] [address] Mich Browne PA-C [address] [facility] [place] [address] 10/13/2024 9:20 AM EDT Office Visit Dermatology, [address] [place] [address] Jennifer Graham PA-C [address] [place] [address] 12/20/2024 3:00 PM EDT [facility] [place] [address] [place] [address] Lawrence Harris MD [address] [place] [address] Health Maintenance Due Date Last Done Comments [...] Power of Attor janice? No Care Teams Airborne Electronics Analyst Relationship Specialty Start Date End Date Mich Browne PA-C [address] [facility] [place] [address] PCP - General Physician Labelling Machine Operator 10/08/23 documented as of this encounter
--- OUTSIDE RECORDS SUMMARY | 2024-07-17 18:10 | External Medical Summary ---
Author Name Unknown Address Unknown Organization K01:[facility] - [address] [place] [address] Laboratory Report Ordering Provider Test Date Status GALLO QUICK 06/20/2024 10:27:37 Final Standing order for pt/inr. < br/>Please draw pt/inr every 1 to 4 weeks as requested
Results to [facility]

Warfarin Therapy
INR: 2.0-3.0 conventional anticoagulation
INR: 2.5-3.5 high intensity anticoagulation Observation Date Value Abnormality Reference (Units ) Status PT 06/20/2024 10:27:37 30.1 Above high normal 11 .6-15.2 (seconds) Final INR 06/20/2024 10:27:37 2.8 Above high normal 0. 8-1.2 Final Performing Location [facility] - [address] [facility] [address]
--- OUTSIDE RECORDS SUMMARY | 2024-07-17 18:10 | External Medical Summary | Summary of Care ---
Author Name Unknown Organization [facility] Address [address] [facility] [place] [address] Phone [phone] Care Team Providers Care Pouncer Name Role Phone Mich Browne PA-C Primary Care Provide r Reason for Visit * Reason Comments Outpatient Testing Encounter Details Date Type Department Care Team (Late st Contact Info) Description 05/30/2024 8:30 AM EST Laboratory Laboratory [facility], [place] [address] [facility] [place] [phone] [facility] [address] [place] [address] meterman current use of anticoagulant therapy Allergies Active Allergy Reactions Criticality Noted Date Comments Ceftriaxone Muscle pain,Rash High 08/26/2010 RASH, MYALGIAS, SYNOVITIS documented as of this encounter (statuses as of 05/30/2024) Medications Aspirin 81 MG Tablet Take 1 Tablet by mouth in the morning. Active nitroglycerin (NITROSTAT) 0.4 MG SUBL 03/15/20 19 Active Cholecalciferol (VITAMIN D) 50 MCG (1999) Capsule Take 2,000 Units by mouth daily. [...] as of this encounter (statuses as of 05/30/2024) Active Problems Problem Noted Date Diagnosed Date Coronary artery disease invo lving [place] coronary artery of [place] heart without angina pectoris 08/12/2023 LISA (obstructive [...] as of this encounter (statuses as of 05/30/2024) Resolved Problems Problem Noted Date Diagnosed Date [...] eruption 08/17/2010 01/21/2022 DERMATITIS 08/13/2010 01/21/2022 SEPTIC [id number] 08/13/201001/03 Abnormal electrocardiogram 11/23/2009 0 2023 Loss of height 11/23/2009 01/21/2022 documented as of this encounter (statuses as of 05/30/2024) Immunizations Name Administration Dates Next Due COVID-19 mRNA, LNP-s, No Pre serve, 2-Dose Series ([employer]) 09/12/2020,08/14/2020 PPD 02/16/2023 Pneumococcal Conjugate Vaccine, 20-valent [...] No 05/11/2023 Does the household have a [facility] source of income? (Household - for ages [...] 18 years and over) Not on file 3 Are you (or your family) ezra eless [...] AM EST documented as of this encounter Plan of Treatment Upcoming Encounters Date Type Department Care Team (Late st Contact Info) Description 05/31/2024 6:15 AM EST Anticoagulation [facility], Rachael Erickson [address] [place] [address] [place] [address] [place] [address] 06/14/2024 11:00 AM EST Office Visit Hematology/Oncology [employer] [address] [facility] [place] [phone] Lawrence Harris MD [address] [place] [address] 10/10/2024 8:00 AM EDT Office Visit Family Practice [place] [address] [place] [address] Mich Browne PA-C [address] [place] [address] 10/13/2024 9:20 AM EDT Office Visit Dermatology, Alysa Pelayo [address] [place] [address] Jennifer Graham PA-C [address] [place] [address] Pending Results Name Type Priority Associated Diagnoses Date /Time PT INR Lab Routine long-term current use of anticoagulant therapy 05/30/2024 8:18 AM EST Health Maintenance Due Date Last Done Comments [...] as of this encounter Visit Diagnoses Diagnosis long-term current use of anticoagulant therapy documented in this encounter Advance Directives * [...] Power of Attor janice? No Care Teams Pouncer Relationship Specialty Start Date End Date Mich Browne PA-C [address] [facility] [place] [address] PCP - General Physician Occupational Ther 10/08/23 documented as of this encounter
--- OUTSIDE RECORDS SUMMARY | 2024-07-17 18:10 | External Medical Summary | Summary of Care ---
Author Name Unknown Organization [facility] Address [address] [facility] [place] [address] Phone [phone] Care Team Providers Care Technical Report Writer Name Role Phone Mich Browne PA-C Primary Care Provide r Reason for Visit * Reason Comments Dosage Adjustment Via Phone (anticoag Cl inic) Encounter Details Date Type Department Care Team (Late st Contact Info) Description 05/09/2024 6:15 AM EST Anticoagulation [facility] Services, Rachael Erickson [address] [place] [address] [place] [address] [place] [address] History of recurrent deep vein thrombosis (DVT)* Allergies Active Allergy Reactions Criticality Noted Date Comments Ceftriaxone Muscle pain,Rash High 08/26/2010 RASH, MYALGIAS, SYNOVITIS documented as of this encounter (statuses as of 05/09/2024) Medications Medication Sig Dispensed Refills Start Date End Date Status Aspirin 81 MG Tablet Take 1 Tablet by mouth in the morning. Active nitroglycerin (NITROSTAT) 0.4 MG SUBL 03/15/2019 Active Cholecalciferol (VITAMIN D) 50 MCG (1999) Capsule Take 2,000 Units by mouth daily. Active doxycycline hyclate 100 MG Capsule Take 1 tab daily as needed 30 Cap 5 06/17/2019 Active Lisinopril 20 MG Oral Tablet (Prinivil) 0.5 Tablets. 10/15/2022 Active Warfarin Sodium 5 MG Oral Tablet (Coumadin) Take 1 Tablet by mouth every evening. 30 Tablet 5 02/16/2023 Active Additional Information Patient taking differently: 7.5 mgOral QPM-1999, Reported on 03/02/2023 Rosuvastatin Calcium 5 MG Oral Tablet (Crestor)Indications :S/P angioplasty with stent,Mixed hyperlipidemia TAKE ONE TABLET BY MOUTH EVERY MORNING. 90 Tablet 3 05/16/2023 Active Metoprolol Succinate ER 25 MG Oral Tablet Extended Release 24 Hour (toPROL XL) Take 1 Tablet by mouth in the morning. 08/10/2023 Active Warfarin Sodium 5 MG Oral Tablet (Jantoven) TAKE 1.5 TABLETS BY MOUTH DAILY DIRECTED BY COUMADIN CLINIC ON PHONE 135 Tablet 1 11/23/2023 Active Sildenafil Citrate 100 MG Oral TabletIndications:Er ectile dysfunction, unspecified erectile dysfunction type Take 1 Tablet by mouth daily as needed for Erectile Dysfunction. 10 Tablet 5 03/18/2024 Active documented as of this encounter (statuses as of 05/09/2024) Active Problems Problem Noted Date Diagnosed Date Coronary artery disease invo lving [place] coronary artery of [place] heart without angina pectoris 08/12/2023 LISA (obstructive sleep apnea) 08/12/2023 History of recurrent deep vein thrombosis (DVT) 08/12/2023 Gilbert's disease 09/29/2022 S/P angioplasty with stent 04/16/2022 Overview: LAD. Hyperlipidemia with target LDL less than 70 01/03 Status post placement of implantable loop record er 01/21/2022 Nocturia 01/21/2022 Vitamin D deficiency 01/21/2022 Non-recurrent unilateral inguinal hernia 022 History of nonmelanoma skin cancer 05/21/2017 Overview: Hx of BCC on left neck - 2011 History of dysplastic nevus 05/31/2014 Actinic keratosis 06/01/2013 History of basal cell carcinoma 06/01/2013 Eosinophilia 09/24/2010 HX TRAUMATIC FRACTURE, LFT LEG 08/13/2010 documented as of this encounter (statuses as of 05/09/2024) Resolved Problems Problem Noted Date Diagnosed Date [...] eruption 08/17/2010 01/21/2022 DERMATITIS 08/13/2010 01/21/2022 SEPTIC [id number] 08/13/201001/03 Abnormal electrocardiogram 11/23/2009 0 2023 Loss of height 11/23/2009 01/21/2022 documented as of this encounter (statuses as of 05/09/2024) Immunizations Name Administration Dates Next Due COVID-19 mRNA, LNP-s, No Pre serve, 2-Dose Series ([employer]) 09/12/2020,08/14/2020 PPD 02/16/2023 Pneumococcal Conjugate Vaccine, 20-valent [...] 05/11/2023 Does the household have a re gular source of income? 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 PT/INR results, Coumadin dose instructions, and next PT/INR date communicated as noted by Pharmacist: Yes YI BURTON CPhT 05/09/2024, 9:28 AM * Kalpana Canales RPh - 05/08/2024 9:44 PM EST Coumadin Clinic (region specific) Objective Current Warfarin Dose As of 05/09/2024 Warfarin maintenance plan: 10 mg (5 mg x 2) every Mon; 7.5 mg (5 mg x 1.5) all other days INR Result As of 05/09/2024 INR goal: 2.0-3.0 INR used for dosin.0 (05/06/2024) Assessment & Plan Warfarin Plan As of 05/09/2024 Full warfarin instructions: 10 mg every Mon; 7.5 mg all other days No change documented: Kalpana Canales RPh Next INR check: 05/16/2024 Repeat PT/INR in 1 week(s) due to MOHS procedure. Weekly dose: not changed Additional Dosing Information: Description [facility] 05/17/24 Tech to contact patient with dose instructions as noted. Kalpana Canales RPh 05/08/2024, 9:44 PM documented in this encounter Plan of Treatment Upcoming Encounters Date Type Department Care Team (Late st Contact Info) Description 05/16/2024 8:30 AM EST Laboratory Laboratory [place] [address] [place] [phone] [place] [address] [place] [address] 05/16/2024 6:00 PM EST Anticoagulation Central[facility] Clinical Pharm[facility] Services, Rachael Erickson [address] [place] [address] [place] [address] [place] [address] 05/17/2024 7:45 AM EST Office Visit MOHS Surgery [facility] [address] [place] [address] Kalpana Ellsworth MD [address] [facility] [place] [address] 06/14/2024 11:00 AM EST Office Visit Hematology/Oncology [facility] [address] [place] [phone] Lawrence Harris MD [address] [facility] [place] [address] 10/10/2024 8:00 AM EDT Office Visit Family Practice [place] [address] [place] [address] Mich Browne PA-C [address] [place] [address] 10/13/2024 9:20 AM EDT Office Visit Dermatology, Alysa Pelayo [address] [place] [address] Jennifer Graham PA-C [address] [place] [address] Health Maintenance Due Date Last Done Comments [...] Power of Attor janice? No Care Teams Technical Report Writer Relationship Specialty Start Date End Date Mich Browne PA-C [address] [facility] [place] [address] PCP - General Physician Visitor Services Coordinator 10/08/23 documented as of this encounter
--- OUTSIDE RECORDS SUMMARY | 2024-07-17 18:10 | External Medical Summary | Summary of Care ---
Author Name Unknown Organization [facility] Address [address] [facility] [address] Phone [phone] Care Team Providers Care Loss Prevention Consultant Name Role Phone Mich Browne PA-C Primary Care Provide r Reason for Visit * Reason Comments Dosage Adjustment Via Phone (anticoag Cl inic) Encounter Details Date Type Department Care Team (Late st Contact Info) Description 05/09/2024 6:15 AM EST Anticoagulation Centralized Clinical Pharmacy Services, Rachael Erickson [address] [place] [address] [place] [address] [place] [address] History of recurrent deep vein thrombosis (DVT)* [...] Diagnosed Date Coronary artery disease invo lving [place] coronary artery of [place] heart without angina pectoris 08/12/2023 LISA (obstructive [...] eruption 08/17/2010 01/21/2022 DERMATITIS 08/13/2010 01/21/2022 SEPTIC [id number] 08/13/201001/03 Abnormal electrocardiogram 11/23/2009 0 2023 Loss of height 11/23/2009 01/21/2022 documented as of this encounter (statuses as of 05/09/2024) Immunizations Name Administration Dates Next Due COVID-19 mRNA, LNP-s, No Pre serve, 2-Dose Series ([employer]) 09/12/2020,08/14/2020 PPD 02/16/2023 Pneumococcal Conjugate Vaccine, 20-valent [...] as of this encounter Progress Notes * 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 Kalpana Canales RPh 05/08/2024, 9:44 PM documented in this encounter Plan of Treatment Upcoming Encounters Date Type Department Care Team (Late st Contact Info) Description 05/16/2024 8:30 AM EST Laboratory Laboratory [place] [address] [place] [phone] [place] J[place]endra [address] [place] [address] 05/16/2024 6:00 PM EST Anticoagulation Centralized Clinical Pharmacy Services, Rachael Erickson [address] [place] [address] [place] [address] [place] [address] 05/17/2024 7:45 AM EST Office Visit MOHS Surgery [facility] [address] [place] [address] Kalpana Ellsworth MD [address] [facility] [place] [address] 06/14/2024 11:00 AM EST Office Visit Hematology/Oncology [facility] [address] [place] [phone] Lawrence Harris MD [address] [facility] [place] [address] 10/10/2024 8:00 AM EDT Office Visit Family Practice [place] [address] [place] [address] Mich Browne PA-C [address] [place] [address] 10/13/2024 9:20 AM EDT Office Visit Dermatology, Alysa Pelayo [address] [place] [address] Jennifer Graham PA-C [address] [place] [address] Health Maintenance Due Date Last Done Comments [...] Power of Attor janice? No Care Teams Loss Prevention Consultant Relationship Specialty Start Date End Date Mich Browne PA-C [address] [facility] [place] [address] PCP - General Physician Correctional Supervisor 10/08/23 documented as of this encounter
--- OUTSIDE RECORDS SUMMARY | 2024-07-17 18:10 | External Medical Summary | Summary of Care ---
Author Name Unknown Organization [facility] Address [address] [facility] [place] [address] Phone [phone] Care Team Providers Care Community Outreach Coordinator Name Role Phone Mich Browne PA-C Primary Care Provide r Reason for Visit * Reason Comments Outpatient Testing Encounter Details Date Type Department Care Team (Late st Contact Info) Description 05/16/2024 8:30 AM EST Laboratory Laboratory [facility] [address] [place] [phone] [facility] [address] [place] [address] terminologist current use of anticoagulant therapy Allergies Active [...] 03/02/2023 Rosuvastatin Calcium 5 MG Oral Tablet (Crestor)Indicatio ns:S/P angioplasty with stent,Mixed hyperlipidemia TAKE ONE TABLET BY MOUTH EVERY MORNING. 90 Tablet 3 05/16/20 23 Active Metoprolol Succinate ER 25 MG Oral [...] PHONE 180 Tablet 1 05/12/20 24 Active documented as of this encounter (statuses as of 05/16/2024) Active Problems Problem Noted Date Diagnosed Date Coronary artery disease invo lving [place] coronary artery of [place] heart without angina pectoris 08/12/2023 LISA (obstructive [...] eruption 08/17/2010 01/21/2022 DERMATITIS 08/13/2010 01/21/2022 SEPTIC [id number] 08/13/201001/03 Abnormal electrocardiogram 11/23/2009 0 2023 Loss of height 11/23/2009 01/21/2022 documented as of this encounter (statuses as of 05/16/2024) Immunizations Name Administration Dates Next Due COVID-19 mRNA, LNP-s, No Pre serve, 2-Dose Series ([email or web address]) 09/12/2020,08/14/2020 PPD 02/16/2023 Pneumococcal Conjugate Vaccine, 20-valent [...] Anticoagulation Centralized Clinical Pharmacy Services, Rachael Erickson [address] [place] [address] [place] [address] [place] [address] 05/17/2024 7:45 AM EST Office Visit MOHS Surgery [facility] [place] [address] [place] [address] Kalpana Ellsworth MD [address] [place] [address] 06/14/2024 11:00 AM EST Office Visit Hematology/Oncology [facility] [place] [address] [place] [phone] Lawrence Harris MD [address] [place] [address] 10/10/2024 8:00 AM EDT Office Visit Family Practice [address], [place] [address] [place] [address] Mich Browne PA-C [address] [place] [address] 10/13/2024 9:20 AM EDT Office Visit Dermatology, Alysa Pelayo [address] [place] [address] Jennifer Graham PA-C 27 [place] [address] Pending Results Name Type Priority Associated Diagnoses Date /Time PT INR Lab Routine senior living current use of anticoagulant therapy 05/16/2024 7:22 AM EST Health Maintenance Due Date Last [...] as of this encounter Visit Diagnoses Diagnosis terminologist current use of anticoagulant therapy documented in [...] Power of Attor janice? No Care Teams Community Outreach Coordinator Relationship Specialty Start Date End Date Mich Browne PA-C [address] [facility] [place] [address] PCP - General Physician Embalmer Assistant 10/08/23 documented as of this encounter
--- OUTSIDE RECORDS SUMMARY | 2024-07-17 18:10 | External Medical Summary | Summary of Care ---
Author Name Unknown Organization [facility] Address [address] [facility] [address] Phone [phone] Care Team Providers Care Sports Director Name Role Phone Mich Browne PA-C Primary Care Provide r Reason for Visit * Reason Comments Outpatient Testing Encounter Details Date Type Department Care Team (Late st Contact Info) Description 05/06/2024 9:00 AM EDT Laboratory Laboratory [facility] [place] [address] [facility] [place] [phone] [place] [address] [place] [address] emt intermediate current use of anticoagulant therapy Allergies Active Allergy Reactions Criticality Noted Date Comments Ceftriaxone Muscle pain,Rash High 08/26/2010 RASH, MYALGIAS, SYNOVITIS documented as of this encounter (statuses as of 05/06/2024) Medications Medication Sig Dispensed Refills Start Date [...] as of this encounter (statuses as of 05/06/2024) Active Problems Problem Noted Date Diagnosed Date Coronary artery disease invo lving [place] coronary artery of [place] heart without angina pectoris 08/12/2023 LISA (obstructive [...] as of this encounter (statuses as of 05/06/2024) Resolved Problems Problem Noted Date Diagnosed Date [...] eruption 08/17/2010 01/21/2022 DERMATITIS 08/13/2010 01/21/2022 SEPTIC [id number] 08/13/201001/03 Abnormal electrocardiogram 11/23/2009 0 2023 Loss of height 11/23/2009 01/21/2022 documented as of this encounter (statuses as of 05/06/2024) Immunizations Name Administration Dates Next Due COVID-19 mRNA, LNP-s, No Pre serve, 2-Dose Series ([employer]) 09/12/2020,08/14/2020 PPD 02/16/2023 Pneumococcal Conjugate Vaccine, 20-valent [...] on file documented as of this encounter Plan of Treatment Upcoming Encounters Date Type Department Care Team (Late st Contact Info) Description 05/09/2024 6:15 AM EST Anticoagulation Centralized Clinical Pharmacy Services, Rachael Erickson [address] [place] [address] [place] [address] [address] 05/17/2024 7:45 AM EST Office Visit MOHS Surgery [facility] [address] [place] [address] Kalpana Ellsworth MD [address] [place] [address] 06/14/2024 11:00 AM EST Office Visit Hematology/Oncology [facility] [address] [place], [place] [phone] Lawrence Harris MD [address] [place] [address] 10/10/2024 8:00 AM EDT Office Visit Family Practice [place] [address] [place] [address] Mich Browne PA-C [address] [place] [address] 10/13/2024 9:20 AM EDT Office Visit Dermatology, Alysa Pelayo [address] [place] [address] Jennifer Graham PA-C [address] [place] [phone] Pending Results Name Type Priority Associated Diagnoses Date /Time PT INR Lab Routine emt intermediate current use of anticoagulant therapy 05/06/2024 8:53 AM EDT Health Maintenance Due Date Last Done Comments [...] as of this encounter Visit Diagnoses Diagnosis snf current use of anticoagulant therapy documented in [...] Power of Attor janice? No Care Teams Sports Director Relationship Specialty Start Date End Date Mich Browne PA-C [address] [facility] [place] [address] PCP - General Physician Ict Managers 10/08/23 documented as of this encounter
--- OUTSIDE RECORDS SUMMARY | 2024-07-17 18:10 | External Medical Summary | Summary of Care ---
Author Name Unknown Organization [facility] Address [address] [place] [address] Phone [phone] Care Team Providers Care Carpentry Specialist Name Role Phone Mich Browne PA-C Primary Care Provide r Reason for Visit * Reason Comments Mohs Surgery Left nasal ala * Evaluate & Treat - Unlimited Visits (Within 30 days (routine)) - Closed Specialty Diagnoses / Procedures Referred By Karon chen Referred To Contact Dermatology Diagnoses Basal cell carcinoma (BCC) of skin of nose Jennifer Graham PA-C [address] [place] [address] Phone: tel: fax: Referral ID Status Reason Start Date Expiration Date V isits Requested Visits Authorized [id number] Closed Specialty Services Required 10/14/[phone] Encounter Details Date Type Department Care Team (Late st Contact Info) Description 05/17/2024 7:45 AM EST Office Visit MOHS Surgery [facility] [address] [place] [address] Kalpana Ellsworth MD [address] [place], [place] [phone] Basal cell carcinoma (BCC) of left ala nasi* Allergies Active Allergy Reactions Criticality Noted Date Comments Ceftriaxone Muscle pain,Rash High 08/26/2010 RASH, MYALGIAS, SYNOVITIS documented as of this encounter (statuses as of 05/21/2024) Medications Aspirin 81 MG Tablet Take 1 [...] as of this encounter (statuses as of 05/21/2024) Active Problems Problem Noted Date Diagnosed Date Coronary artery disease invo lving [place] coronary artery of [place] heart without angina pectoris 08/12/2023 LISA (obstructive [...] as of this encounter (statuses as of 05/21/2024) Resolved Problems Problem Noted Date Diagnosed Date [...] eruption 08/17/2010 01/21/2022 DERMATITIS 08/13/2010 01/21/2022 SEPTIC [id number] 08/13/201001/03 Abnormal electrocardiogram 11/23/2009 0 2023 Loss of height 11/23/2009 01/21/2022 documented as of this encounter (statuses as of 05/21/2024) Immunizations Name Administration Dates Next Due COVID-19 mRNA, LNP-s, No Pre serve, 2-Dose Series ([email or web address]) 09/12/2020,08/14/2020 PPD 02/16/2023 Pneumococcal Conjugate Vaccine, 20-valent [...] of this encounter Progress Notes * Kalpana Ellsworth MD - 05/17/2024 7:45 AM EST [facility] Mohs Surgery Note (See separate transcribed operative note for further detail) History: Jatin Muñiz is a 69 year old patient seen at the request of Jennifer Graham PA-C for evaluation and management of the following lesion: B. Skin, L nasal ala, shave: Basal cell carcinoma, at least nodular type Patient problem list reviewed. Patient medication/allergy lists reviewed. Examination: Jatin Muñiz is alert, oriented and appears well and in no distress. The patient's skin is remarkable for: left nasal ala: 0.4 x 0.4 cm pink scar Impression/Plan: Basal cell carcinoma - left nasal ala MMS Standard Mohs micrographic technique was utilized to treat this tumor. Microscopic examination of the specimen allowed the Mohs surgeon, whose dual role is to function as both surgeon and pathologist, to precisely identify the location of any remaining tumor or ascertain that the tissue margins were free of tumor. This process of excision of remaining tumor, mapping, and histologic exam was repeated until the tumor was excised completely. Patient identified, procedure verified, site identified and verified with the patient. Time out completed. Surgical removal of the lesion discussed with the patient (risks and benefits, including possibility of scarring, infection, bleeding, recurrence or potential for further treatment). I have specifically identified the site with the patient. I have discussed the fact that the patient will have a scar after the procedure regardless of granulation or repair with sutures. I have discussed that the repair options can range from granulation in some cases to linear or curvilinear closures to larger flaps or grafts. There is a risk of injury to nerves causing temporary or permanent numbness. Questions answered and verbal and written consent was obtained. 1 stage(s) Anesthetic: 0.05% lidocaine with 1:100,000 epinephrine. Repair: Purse-string (see separate operative report for details) Absorbable sutures Wound care was discussed verbally, demonstrated and printed wound instructions given as well as wound care supplies. Patient instructed to call with questions or concerns. Personal contact information provided. Follow-up: as needed Kalpana Ellsworth MD Associate, Mohs Micrographic Surgery & Dermatologic Surgery 05/17/2024 documented in this encounter Nursing Notes * Sophie Yap LPN - 05/17/2024 8:06 AM EST Chief Complaint Patient presents with Mohs Surgery Left nasal ala Referral Doctor: Santos Hypertension History: Yes, refer to medication information for treatment. Diabetes History: No Thyroid History: No Bleeding Tendency: Yes, refer to medication information for treatment. Artificial Valve or Joint: no Pacemaker: yes Defibrillator: no Hepatitis/HIV Exposure: No Smoking: no Consent signed yes documented in this encounter Plan of Treatment Upcoming Encounters Date Type Department Care Team (Late st Contact Info) Description 05/30/2024 8:30 AM EST Laboratory Laboratory [facility] [place] [address] [facility] [place] [place] [phone] [facility] [address] [facility] [place] [place] [address] 05/31/2024 6:15 AM EST Anticoagulation Centralized Clinical Pharmacy Services, Rachael Erickson [address] [place] [address] [place] [address] [place] [address] 06/14/2024 11:00 AM EST Office Visit Hematology/Oncology [facility] [address] [place] [phone] Lawrence Harris MD [address] [place] [address] 10/10/2024 8:00 AM EDT Office Visit Family Practice [address], [place] [address] [place] [address] Mich Browne PA-C [address] [place] [address] 10/13/2024 9:20 AM EDT Office Visit Dermatology, Alysa Pelayo [address] [place] [address] Jennifer Graham PA-C [address] [place] [address] Scheduled Referrals Name Type Priority Associated Diagnoses Orde r Schedule MOHS SURGERY REFERRAL OP Referral Within 30 days (routine) Basal cell carcinoma (BCC) of skin of nose Ordered: 10/14/2023 Health Maintenance Due Date Last Done Comments [...] as of this encounter Visit Diagnoses Diagnosis Basal cell carcinoma (BCC) of left ala nasi- Primary documented in this encounter Advance Directives [...] Power of Attor janice? No Care Teams Carpentry Specialist Relationship Specialty Start Date End Date Mich Browne PA-C [address] [facility] [place] [place] [address] PCP - General Physician Communication Skills Instructor 10/08/23 documented as of this encounter
--- OUTSIDE RECORDS SUMMARY | 2024-07-17 18:10 | External Medical Summary | Summary of Care ---
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 Allergies Active Allergy Reactions Criticality Noted Date Comments Ceftriaxone Muscle pain,Rash High 08/26/2010 RASH, MYALGIAS, SYNOVITIS documented as of this encounter (statuses as of 06/20/2024) Medications Aspirin 81 MG Tablet Take 1 [...] as of this encounter (statuses as of 06/20/2024) Active Problems Problem Noted Date Diagnosed Date 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 angina pectoris 08/12/2023 LISA (obstructive [...] as of this encounter (statuses as of 06/20/2024) Resolved Problems Problem Noted Date Diagnosed Date [...] eruption 08/17/2010 01/21/2022 DERMATITIS 08/13/2010 01/21/2022 SEPTIC [id number] 08/13/201001/03 Abnormal electrocardiogram 11/23/2009 0 2023 Loss of height 11/23/2009 01/21/2022 documented as of this encounter (statuses as of 06/20/2024) Immunizations Name Administration Dates Next Due COVID-19 mRNA, LNP-s, No Pre serve, 2-Dose Series ([employer]) 09/12/2020,08/14/2020 PPD 02/16/2023 Pneumococcal Conjugate Vaccine, 20-valent [...] No 05/11/2023 Does the household have a [facility] source of income? (Household - for ages [...] Anticoagulation Centralized Clinical Pharmacy Services, Rachael Erickson [address] [place] [address] [place] [address] [place] [address] 10/10/2024 8:00 AM EDT Office Visit [facility] [place], [place] [address] [place] [address] Mich Browne PA-C [address] [place] [address] 10/13/2024 9:20 AM EDT Office Visit Dermatology, Alysa Pelayo [address] [place] [address] Jennifer Graham PA-C [address] [place] [address] 12/20/2024 3:00 PM EDT Office Visit Hematology/Oncology [facility] [place] [address] [facility] [place] [phone] Lawrence Harris MD [address] [facility] [place] [address] Pending Results Name Type Priority Associated Diagnoses Date /Time PT INR Lab Routine 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 No Care Teams Black Top Roller Relationship Specialty Start Date End Date Mich Browne PA-C [address] [facility] [place] [address] PCP - General Physician Agricultural Equipment Test Engineer 10/08/23 documented as of this encounter
--- OUTSIDE RECORDS SUMMARY | 2024-07-17 18:10 | External Medical Summary | Summary of Care ---
Author Name Unknown Organization [facility] Address [address] [place] [address] Phone [phone] Care Team Providers Care Ophthalmic Technician Apprentice Name Role Phone Mich Hallman PA-C Primary Care Provide r Reason for Visit * Reason Comments eRx-Medication Refill Encounter Details Date Type Department Care Team (Late st Contact Info) Description 05/11/2024 Refill Family Practice [facility] [address] [place] [address] Mich Hallman PA-C [address] [place], [place] [phone] Allergies Active Allergy Reactions Criticality Noted Date Comments Ceftriaxone Muscle pain,Rash High 08/26/2010 RASH, MYALGIAS, SYNOVITIS documented as of this encounter (statuses as of 05/12/2024) Medications Medication Sig Dispensed Refills Start Date End Date Status Aspirin 81 MG Tablet Take 1 Tablet by mouth in the morning. Active nitroglycerin (NITROSTAT) 0.4 MG SUBL 9 Active Cholecalciferol (VITAMIN D) 50 MCG (1999) Capsule Take 2,000 Units by mouth daily. Active doxycycline hyclate 100 MG Capsule Take 1 tab daily as needed 30 Cap 5 9 Active Lisinopril 20 MG Oral Tablet (Prinivil) 0.5 Tablets. 3 Active Warfarin Sodium 5 MG Oral Tablet (Coumadin) Take 1 Tablet by mouth every evening. 30 Tablet 5 3 Active Additional Information Patient taking differently: 7.5 mgOral QPM-1999, Reported on 03/02/2023 Rosuvastatin Calcium 5 MG Oral Tablet (Crestor)Indication s:S/P angioplasty with stent,Mixed hyperlipidemia TAKE ONE TABLET BY MOUTH EVERY MORNING. 90 Tablet 3 3 Active Metoprolol Succinate ER 25 MG Oral Tablet Extended Release 24 Hour (toPROL XL) Take 1 Tablet by mouth in the morning. 4 Active Sildenafil Citrate 100 MG Oral TabletIndications:E rectile dysfunction, unspecified erectile dysfunction type Take 1 Tablet by mouth daily as needed for Erectile Dysfunction. 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 artery of [place] heart without angina pectoris 08/12/2023 LISA (obstructive [...] as of this encounter (statuses as of 05/12/2024) Resolved Problems Problem Noted Date Diagnosed Date [...] eruption 08/17/2010 01/21/2022 DERMATITIS 08/13/2010 01/21/2022 SEPTIC [id number] 08/13/201001/03 Abnormal electrocardiogram 11/23/2009 0 2023 Loss of height 11/23/2009 01/21/2022 documented as of this encounter (statuses as of 05/12/2024) Immunizations Name Administration Dates Next Due COVID-19 mRNA, LNP-s, No Pre serve, 2-Dose Series ([email or web address]) 09/12/2020,08/14/2020 PPD 02/16/2023 Pneumococcal Conjugate Vaccine, 20-valent [...] on file documented as of this encounter Miscellaneous Notes * Telephone Encounter - Sharad Luis formerly [facility] - 05/12/2024 1:02 PM ESTSigned Prescriptions: Disp Refills Warfarin Sodium 5 MG Oral Tablet (Jantoven)180 Ta*1 Sig: TAKE 1.5 to 2 TABLETS BY MOUTH DAILY DIRECTED BY COUMADIN CLINIC ON PHONEAuthorizing Provider: MICH HALLMAN User: SHARAD LUIS documented in this encounter Plan of Treatment Upcoming Encounters Date Type Department Care Team (Late st Contact Info) Description 05/16/2024 8:30 AM EST [facility] [address] [facility] [place] [phone] [place] [facility] [address] [facility] [place] [address] 05/16/2024 6:00 PM EST Anticoagulation Centralized Clinical Pharmacy Services, Archer Georgina [address] [place] [address] [place] [address] [place] [address] 05/17/2024 7:45 AM EST [facility] [place] [address] [facility] [address] [place] [address] Kalpana Ellsworth MD [address] [place] [address] [place] [address] 06/14/2024 11:00 AM EST Office Visit Hematology/Oncology [facility] [address] [place] [address] Lawrence Harris MD [address] [place] [address] 10/10/2024 8:00 AM EDT Office Visit Family Practice [address], [place] [address] [place] [address] Mich Hallman PA-C [address] [place] [address] 10/13/2024 9:20 AM EDT Office Visit Dermatology, Alysa Pelayo [address] [place] [address] Jennifer Graham PA-C [address] [place] [address] Health Maintenance Due Date Last Done Comments [...] Not on filedocumented as of this encounter Advance Directives * Full Code [...] Power of Attor janice? No Care Teams Ophthalmic Technician Apprentice Relationship Specialty Start Date End Date Mich Hallman PA-C [address] [facility] [place] [address] PCP - General Physician Cloud Software Engineer 10/08/23 documented as of this encounter
--- OUTSIDE RECORDS SUMMARY | 2024-07-17 18:10 | External Medical Summary | Summary of Care ---
Author Name Unknown Organization [facility] Address [address] [place] [facility] [place] [address] Phone [phone] Care Team Providers Care Front Facer Name Role Phone Mich Hallman PA-C Primary Care Provide r Reason for Visit * Reason Onset Date Comments Medication Refill 05/16/2024 Encounter Details Date Type Department Care Team (Late st Contact Info) Description 05/16/2024 Refill Family [facility] [place] [address] [place] [address] Mich Hallman PA-C [address] [place] [address] Mixed hyperlipidemia*; S/P angioplasty with stent Allergies Active Allergy Reactions Criticality Noted Date [...] morning.. 90 Tablet 3 05/16/20 24 Active Rosuvastatin Calcium 5 MG Oral Tablet (Crestor)Indicatio ns:S/P angioplasty with stent,Mixed hyperlipidemia TAKE ONE TABLET BY MOUTH EVERY MORNING. 90 Tablet 3 05/16/20 23 024 Discontin ued(Refil l) documented as of this encounter (statuses as of 05/16/2024) Active Problems Problem Noted Date Diagnosed Date Coronary artery disease invo lving [place] coronary artery of [place] heart without angina pectoris 08/12/2023 LISA (obstructive [...] eruption 08/17/2010 01/21/2022 DERMATITIS 08/13/2010 01/21/2022 SEPTIC [id number] 08/13/201001/03 Abnormal electrocardiogram 11/23/2009 0 2023 Loss [...] AM EST documented as of this encounter Miscellaneous Notes * Telephone Encounter - Mich Hallman PA-C - 05/16/2024 11:37 AM EST Signed Prescriptions: Disp Refills Rosuvastatin Calcium 5 MG Oral Tablet (Cre*90 Tab*3 Sig: Take 1 Tablet by mouth in the morning. In the morning.. Authorizing Provider: MICH HALLMAN * Telephone Encounter - Joanie Nielsen LPN - 05/16/2024 11:34 AM EST No prescriptions requested or ordered in this encounter Last Visit: 03/18/2024 (in office), Visit date not found (telemedicine) Next Visit: 10/10/2024 Last date the medication was ordered: 05/16/23 Patient Active Problem List Diagnosis HX TRAUMATIC FRACTURE, LFT LEG Eosinophilia Actinic keratosis History of basal cell carcinoma History of dysplastic nevus History of nonmelanoma skin cancer Hyperlipidemia with target LDL less than 70 Status post placement of implantable loop recorder Nocturia Vitamin D deficiency Non-recurrent unilateral inguinal hernia S/P angioplasty with stent Gilbert's disease Coronary artery disease involving [place] coronary artery of [place] heart without angina pectoris LISA (obstructive sleep apnea) History of recurrent deep vein thrombosis (DVT) Labs: Lab Results Component Value Date/Time CREATININE - [facility] 1.2 03/18/2024 08:58 AM CREATININE - [facility] 1.20 06/23/2023 12:00 AM CREATININE - [facility] 0.9 09/10/2010 11:00 AM Lab Results Component Value Date/Time POTASSIUM - [facility] 5.1 03/18/2024 08:58 AM POTASSIUM - [facility] 4.4 06/23/2023 12:00 AM POTASSIUM - [facility] 4.8 09/10/2010 11:00 AM Lab Results Component Value Date/Time TSH - [facility] 3.23 03/18/2024 08:58 AM TSH - [facility] 3.34 07/08/2010 01:30 PM TSH - OUTSIDE LAB 1.99 04/04/2022 12:00 AM Lab Results Component Value Date/Time LDL (CALCULATED)-OUTSIDE LAB 106 04/04/2022 12:00 AM LDL CHOLESTEROL (CALCULATED) - [facility] 61 12/11/2023 08:12 AM LDL CHOLESTEROL (CALCULATED) - [facility] 71 06/03/2023 07:54 AM LDL CHOLESTEROL (CALCULATED) - [facility] 107 (H) 12/25/2009 08:40 AM Lab Results Component Value Date/Time ALT - [facility] 35 03/18/2024 08:58 AM ALT - [facility] 46 08/22/2010 07:40 AM Hemoglobin AIC Results: Lab Results Component Value Date/Time HEMOGLOBIN A1C - [facility] 5.9 (H) 03/18/2024 08:58 AM HEMOGLOBIN A1C - [facility] 6.0 (H) 12/11/2023 08:12 AM HEMOGLOBIN A1C - [facility] 5.9 (H) 06/03/2023 07:54 AM documented in this encounter Plan of Treatment Upcoming Encounters Date Type Department Care Team (Late st Contact Info) Description 05/16/2024 6:00 PM EST Anticoagulation Centralized Clinical Pharmacy Services, Rachael Erickson [address] [place] [address] [place] [address] [place] [address] 05/17/2024 7:45 AM EST Office Visit [facility] [address] [place] [address] Kalpana Ellsworth MD [address] [facility] [address] 06/14/2024 11:00 AM EST Office Visit Hematology/Oncology [employer] [address] [facility] [place], [place] [address] Lawrence Harris MD [address] [facility] [place], [place] [address] 10/10/2024 8:00 AM EDT Office Visit [place] [address] [address] [place] [address] Mich Hallman PA-C [address] [place] [address] 10/13/2024 9:20 AM EDT Office Visit Dermatology, Alysa Pelayo [address] [place] [address] Jennifer Graham PA-C [address] [place] [address] Health Maintenance Due Date Last Done Comments [...] as of this encounter Visit Diagnoses Diagnosis Mixed hyperlipidemia- Primary S/P angioplasty with stent Postsurgical percutaneous transluminal coronary angioplasty status documented in this encounter Advance Directives * [...] Power of Attor janice? No Care Teams Front Facer Relationship Specialty Start Date End Date Mich Hlalman PA-C [address] [facility] [place] [address] PCP - General Physician Equal Opportunity Director 10/08/23 documented as of this encounter
--- OUTSIDE RECORDS SUMMARY | 2024-07-17 18:11 | External Medical Summary ---
Author Name Unknown Address Unknown Organization K01:[facility] [place] [address] [place] [address] Laboratory Report Ordering Provider Test Date Status ARCHIE ZAPIEN 03/18/2024 08:58:05 Final Observation Date Value Abnormality Reference (Units ) Status Albumin 03/18/2024 08:58:05 4.5 3.8-5.0 (g/dL) Final AST (Aspartate aminotransferase) 03/18/2024 08:58:05 34 10-50 (U/L) Final Results may be falsely eleva amanda due to hemolysis. Alk Phos 03/18/2024 08:58:05 50 35-130 (U/ L) Final ALT (Alanine aminotransferase) 03/18/2024 08:58:05 35 10-50 (U/L) Fin al Bilirubin, Total 03/18/2024 08:58:05 2.4 Above high no rmal <=1.2 (mg/dL) Final Bilirubin, Direct 03/18/2024 08:58:05 0.2 0. 0-0.3 (mg/dL) Final Protein 03/18/2024 08:58:05 6.8 6.0-8.3 (g /dL) Final Performing Location [facility] [place] [address] [place] [address]
--- OUTSIDE RECORDS SUMMARY | 2024-07-17 18:11 | External Medical Summary | Summary of Care ---
Author Name Unknown Organization [facility] Address [address] [facility] [place] [address] Phone [phone] Care Team Providers Care Hostess Name Role Phone Mich Browne PA-C Primary Care Provide r Reason for Visit * Reason Comments Dosage Adjustment Via Phone (anticoag Cl inic) Encounter Details Date Type Department Care Team (Late st Contact Info) Description 02/09/2024 6:15 AM EDT Anticoagulation Centralized Clinical Pharmacy Services, Rachael Erickson [address] [place] [address] [place] [address] [place] [address] History of recurrent deep vein thrombosis (DVT)* Allergies Active Allergy Reactions Criticality Noted Date Comments Ceftriaxone Muscle pain,Rash High 08/26/2010 RASH, MYALGIAS, SYNOVITIS documented as of this encounter (statuses as of 02/09/2024) Medications Medication Sig Dispensed Refills Start Date [...] ON PHONE 135 Tablet 1 11/23/2023 Active documented as of this encounter (statuses as of 02/09/2024) Active Problems Problem Noted Date Diagnosed Date Coronary artery disease invo lving [place] coronary artery of [place] heart without angina pectoris 08/12/2023 LISA (obstructive [...] as of this encounter (statuses as of 02/09/2024) Resolved Problems Problem Noted Date Diagnosed Date [...] eruption 08/17/2010 01/21/2022 DERMATITIS 08/13/2010 01/21/2022 SEPTIC [id number] 08/13/201001/03 Abnormal electrocardiogram 11/23/2009 0 2023 Loss of height 11/23/2009 01/21/2022 documented as of this encounter (statuses as of 02/09/2024) Immunizations Name Administration Dates Next Due COVID-19 mRNA, LNP-s, No Pre serve, 2-Dose Series ([employer]) 09/12/2020,08/14/2020 PPD 02/16/2023 Pneumococcal Conjugate Vaccine, 20-valent (Prevn ar20) 09/29/2022 Seasonal Influenza, Quadrivalent Hd (Fluzone Hd) 04/16/2022 [...] as of this encounter Progress Notes * Tanner Castañeda, Mulu - 02/09/2024 8:27 AM EDT Contacts Type Contact Phone/Fax 02/09/2024 08:26 AM EDT Phone (Outgoing) Jatin Muñiz (Self) [phone] (M) Left Message Subjective Advised patient to contact Anticoagulation Clinic if any unusual bruising or bleeding, recent illness, changes in medication, or questions/concerns. PT/INR results, Coumadin dose instructions, and next PT/INR date communicated as noted by Pharmacist: Yes Tanner Castañeda CPhT 02/09/2024, 8:27 AM * Kalpana Canales RPh - 02/09/2024 8:01 AM EDT Coumadin Clinic (region specific) Objective Current Warfarin Dose As of 02/09/2024 Warfarin maintenance plan: 10 mg (5 mg x 2) every Mon, Fri; 7.5 mg (5 mg x 1.5) all other days INR Result As of 02/09/2024 INR goal: 2.0-3.0 INR used for dosin.5 (02/08/2024) Assessment & Plan Warfarin Plan As of 02/09/2024 Full warfarin instructions: 10 mg every Mon, Fri; 7.5 mg all other days No change documented: Kalpana Canales [facility] Next INR check: 02/29/2024 Repeat PT/INR in 3 week(s) Weekly dose: not changed Additional Dosing Information: Description [facility] 05/17/24 Tech to contact patient with dose instructions as noted. Kalpana Canales RPh 02/09/2024, 8:01 AM documented in this encounter Plan of Treatment Upcoming Encounters Date Type Department Care Team (Late st Contact Info) Description 03/18/2024 8:20 AM EDT Office Visit Family Practice [address] [place] [address] Mich Browne PA-C [address] [place] [address] 05/17/2024 7:45 AM EST Office Visit [facility] Surgery [facility] [place] [address] [place] [address] Kalpana Ellsworth MD [address] [facility] [address] 06/14/2024 11:00 AM EST Office Visit Hematology/Oncology [facility] [place] [address] [facility] [place] [address] Lawrence Harris MD [address] [place] [address] 10/13/2024 9:20 AM EDT Office Visit Dermatology, Alysa Pelayo [address] [place] [address] Jennifer Graham PA-C [address] [place] [address] Health Maintenance Due Date Last Done Comments Hepatitis C Screening 1973 Cologuard 01/14/2000 Fecal Occult Blood Test 01/14/2000 Sigmoidoscopy 01/14/2000 Zoster Vaccines (1 of 2) 2005 COVID-19 Vaccine (3 - 2022- season) 2023 09/12/2020, 08/14/2020 Colonoscopy 11/19/2023 11/18/2013 Colorectal Cancer Screening 11/19/2023 Influenza Vaccine (FLU shot) (#1) 2024 04/16/2022 Depression Screening 05/11/2024 05/11/2023 Diabetes Screening 12/10/2026 12/11/2023, 0 12/11/2023, 06/23/2023, Additional history exists DTaP,Tdap,and Td Vaccines (2 - Td or Tdap) 01/22/2032 01/21/2022 Pneumococcal Vaccine: 65+ Years Completed 09/29/2022 HPV (Gardasil) Vaccine Aged Out No lo [...] Power of Attor janice? No Care Teams Hostess Relationship Specialty Start Date End Date Mich Browne PA-C [address] [facility] [place] [address] PCP - General Physician Music Publisher 10/08/23 documented as of this encounter
--- OUTSIDE RECORDS SUMMARY | 2024-07-17 18:11 | External Medical Summary | Summary of Care ---
Author Name Unknown Organization [facility] Address [address] [facility] [place] [address] Phone [phone] Care Team Providers Care Supervisor [employer] Name Role Phone Mich Browne PA-C Primary Care Provide r Reason for Visit * Reason Comments Outpatient Testing Encounter Details Date Type Department Care Team (Late st Contact Info) Description 04/08/2024 9:00 AM EDT Laboratory Laboratory [facility] [place] [address] [place] [phone] [place], [facility] [address] [place] [address] [facility] current use of anticoagulant therapy Allergies Active Allergy Reactions Criticality Noted Date Comments Ceftriaxone Muscle pain,Rash High 08/26/2010 RASH, MYALGIAS, SYNOVITIS documented as of this encounter (statuses as of 04/08/2024) Medications Medication Sig Dispensed Refills Start Date [...] as of this encounter (statuses as of 04/08/2024) Active Problems Problem Noted Date Diagnosed Date Coronary artery disease invo lving [place] coronary artery of [place] heart without angina pectoris 08/12/2023 LISA (obstructive [...] as of this encounter (statuses as of 04/08/2024) Resolved Problems Problem Noted Date Diagnosed Date [...] eruption 08/17/2010 01/21/2022 DERMATITIS 08/13/2010 01/21/2022 SEPTIC [id number] 08/13/201001/03 Abnormal electrocardiogram 11/23/2009 0 2023 Loss of height 11/23/2009 01/21/2022 documented as of this encounter (statuses as of 04/08/2024) Immunizations Name Administration Dates Next Due COVID-19 mRNA, LNP-s, No Pre serve, 2-Dose Series ([employer]) 09/12/2020,08/14/2020 PPD 02/16/2023 Pneumococcal Conjugate Vaccine, 20-valent [...] Care Team (Late st Contact Info) Description 04/11/2024 6:15 AM EDT Anticoagulation Centralized Clinical Pharmacy Services, Rachael Erickson [address] [place] [address] [place] [address] [place] [address] 05/17/2024 7:45 AM EST Office Visit [facility] Surgery [facility] [place] [address] [place] [address] Kalpana Ellsworth MD [address] [place] [address] 06/14/2024 11:00 AM EST Office Visit Hematology/Oncology [facility] [place] [address] [place], [place] [phone] Lawrence Harris MD [address] [place] [address] 10/10/2024 8:00 AM EDT Office Visit [place] [address] [place] [address] Mich Browne PA-C [address] [place] [address] 10/13/2024 9:20 AM EDT Office Visit Dermatology, Alysa Pelayo [address] [place] [address] Jennifer Graham PA-C [address] [place] [address] Pending Results Name Type Priority Associated Diagnoses Date /Time PT INR Lab Routine long term care social worker current use of anticoagulant therapy 04/08/2024 9:04 AM EDT Health Maintenance Due Date Last [...] as of this encounter Visit Diagnoses Diagnosis long term care social worker current use of anticoagulant therapy documented in [...] of Attor janice? No Care Teams Supervisor [employer] Relationship Specialty Start Date End Date Mich Browne PA-C [address] [facility] [place] [address] PCP - General Physician Laboratory Tech 10/08/23 documented as of this encounter
--- OUTSIDE RECORDS SUMMARY | 2024-07-17 18:11 | External Medical Summary ---
Author Name Unknown Address Unknown Organization [id number]:[facility]ATORY [facility] [place] - [address] [facility] [address] Laboratory Report Ordering Provider Test Date Status LEXX CURRAN 03/18/2024 08:58:05 Final Observation Date Value Abnormality Reference (Units ) Status HbA1C 03/18/2024 08:58:05 5.9 Above high normal 4. 0-5.6 (%) Final The use of HbA1c to monitor glycemic status is based on normal hemoglobin and HbA composition. This test should not be used in patients with abnormal hemoglobin that affects the half life of the red blood cell or the in vivo glycation rates. Glucose, estimated average 03/18/2024 08:58:05 123 <126 (mg/dL) Final Performing Location [facility]ORY [facility] [address] [facility] [address]
--- OUTSIDE RECORDS SUMMARY | 2024-07-17 18:11 | External Medical Summary ---
Author Name Unknown Address Unknown Organization [id number]:LABORATORY [facility] [address] Laboratory Report Ordering Provider Test Date Status ARCHIE ZAPIEN 03/18/2024 08:58:05 Final Observation Date Value Abnormality Reference (Units ) Status WBC, Total 03/18/2024 08:58:05 7.26 4.00-10.80 (K/uL) Final RBC 03/18/2024 08:58:05 5.51 4.50-5.25 (M/uL) Final Hemoglobin 03/18/2024 08:58:05 16.5 14.0-16.8 (g/dL) Final HCT 03/18/2024 08:58:05 50.8 Above high normal 40.0-48.4 (%) Final MCV 03/18/2024 08:58:05 92.2 82.0-99.5 (fL) Final MCH 03/18/2024 08:58:05 29.9 27.0-34.0 (pg) Final MCHC 03/18/2024 08:58:05 32.5 32.0-36.0 (g/dL) Final RDW 03/18/2024 08:58:05 13.1 11.5-15.5 (%) Final Platelets 03/18/2024 08:58:05 292 140-400 (K/uL) Final MPV 03/18/2024 08:58:05 9.9 6.6-11.1 (fL) Final Nucleated erythrocytes/100 leukocytes [Ratio] in Blood by Automated count 03/18/2024 08:58:05 0 <=0 (/100 WBCs) Final Performing Location LABORATORY [facility] - [address] [place] [address]
--- OUTSIDE RECORDS SUMMARY | 2024-07-17 18:11 | External Medical Summary ---
Author Name Unknown Address Unknown Organization [id number]:[facility]ORY [facility] [address] [place] [address] Laboratory Report Ordering Provider Test Date Status GALLO QUICK 04/08/2024 09:04:04 Final Standing order for pt/inr. < br/>Please draw pt/inr every 1 to 4 weeks as requested
Results to [facility]tico[facility]

Warfarin Therapy
INR: 2.0-3.0 conventional anticoagulation
INR: 2.5-3.5 high intensity anticoagulation Observation Date Value Abnormality Reference (Units ) Status PT 04/08/2024 09:04:04 38.6 Above high normal 11 .6-15.2 (seconds) Final INR 04/08/2024 09:04:04 3.9 Above high normal 0. 8-1.2 Final Performing Location [facility] [place] [facility] [address] [facility] [address]
--- OUTSIDE RECORDS SUMMARY | 2024-07-17 18:11 | External Medical Summary | Summary of Care ---
Author Name Unknown Organization [facility] Address [address] [facility] [place] [address] Phone [phone] Care Team Providers Care Product Marketing Analyst Name Role Phone Mich Browne PA-C Primary Care Provide r Reason for Visit * Reason Comments Outpatient Testing Encounter Details Date Type Department Care Team (Late st Contact Info) Description 04/22/2024 9:00 AM EDT Laboratory Laboratory [facility] [place] [address] [facility] [phone] [place], [facility] [address] [place] [address] ocean transportation intermediary current use of anticoagulant therapy Allergies Active Allergy Reactions Criticality Noted Date Comments Ceftriaxone Muscle pain,Rash High 08/26/2010 RASH, MYALGIAS, SYNOVITIS documented as of this encounter (statuses as of 04/22/2024) Medications Medication Sig Dispensed Refills Start Date [...] as of this encounter (statuses as of 04/22/2024) Active Problems Problem Noted Date Diagnosed Date Coronary artery disease invo lving [place] coronary artery of [place] heart without angina pectoris 08/12/2023 LISA (obstructive [...] as of this encounter (statuses as of 04/22/2024) Resolved Problems Problem Noted Date Diagnosed Date [...] eruption 08/17/2010 01/21/2022 DERMATITIS 08/13/2010 01/21/2022 SEPTIC [id number] 08/13/201001/03 Abnormal electrocardiogram 11/23/2009 0 2023 Loss of height 11/23/2009 01/21/2022 documented as of this encounter (statuses as of 04/22/2024) Immunizations Name Administration Dates Next Due COVID-19 mRNA, LNP-s, No Pre serve, 2-Dose Series ([employer]) 09/12/2020,08/14/2020 PPD 02/16/2023 Pneumococcal Conjugate Vaccine, 20-valent [...] Care Team (Late st Contact Info) Description 04/25/2024 6:15 AM EDT Anticoagulation Centralized Clinical Pharmacy Services, Rachael Erickson [address] [place] [address] [place] [address] [place] [address] 05/17/2024 7:45 AM EST Office Visit [facility] Surgery [facility] [place] [address] [place] [address] Kalpana Ellsworth MD [address] [place] [address] 06/14/2024 11:00 AM EST Office Visit Hematology/Oncology [facility] [place] [address] [place], [place] [phone] Lawrence Harris MD [address] [place] [address] 10/10/2024 8:00 AM EDT Office Visit Family Practice [place] [address] [place] [address] Mich Browne PA-C [address] [place] [address] 10/13/2024 9:20 AM EDT Office Visit Dermatology, Alysa Pelayo [address] [place] [address] Jennifer Graham PA-C [address] [place] [address] Pending Results Name Type Priority Associated Diagnoses Date /Time PT INR Lab Routine ocean transportation intermediary current use of anticoagulant therapy 04/22/2024 11:58 AM EDT Health Maintenance Due Date Last [...] as of this encounter Visit Diagnoses Diagnosis ocean transportation intermediary current use of anticoagulant therapy documented in [...] Power of Attor janice? No Care Teams Product Marketing Analyst Relationship Specialty Start Date End Date Mich Browne PA-C [address] [facility] [place] [address] PCP - General Physician Ceramic Restorer 10/08/23 documented as of this encounter
--- OUTSIDE RECORDS SUMMARY | 2024-07-17 18:11 | External Medical Summary ---
Author Name Unknown Address Unknown Organization K01:LABORATORY [facility] [place] - [address] [place] [address] Laboratory Report Ordering Provider Test Date Status ABDELRAHMANGALLO 05/06/2024 08:53:55 Final Standing order for pt/inr. < br/>Please draw pt/inr every 1 to 4 weeks as requested
Results to [facility] Anticoagulation [facility]

Warfarin Therapy
INR: 2.0-3.0 conventional anticoagulation
INR: 2.5-3.5 high intensity anticoagulation Observation Date Value Abnormality Reference (Units ) Status PT 05/06/2024 08:53:55 22.9 Above high normal 11 .6-15.2 (seconds) Final INR 05/06/2024 08:53:55 2.0 Above high normal 0. 8-1.2 Final Performing Location LABORATORY [facility] [place] - [address] [facility] [address]
--- OUTSIDE RECORDS SUMMARY | 2024-07-17 18:11 | External Medical Summary ---
Author Name Unknown Address Unknown Organization K01:LABORATORY [facility] [place] - [address] [place] [address] Laboratory Report Ordering Provider Test Date Status ABDELRAHMANGALLO 03/18/2024 08:58:05 Final Standing order for pt/inr. < br/>Please draw pt/inr every 1 to 4 weeks as requested
Results to [facility] Anticoagulation [facility]

Warfarin Therapy
INR: 2.0-3.0 conventional anticoagulation
INR: 2.5-3.5 high intensity anticoagulation Observation Date Value Abnormality Reference (Units ) Status PT 03/18/2024 08:58:05 19.8 Above high normal 11 .6-15.2 (seconds) Final INR 03/18/2024 08:58:05 1.7 Above high normal 0. 8-1.2 Final Performing Location LABORATORY [facility] [place] [facility] [address] [facility] [address]
--- OUTSIDE RECORDS SUMMARY | 2024-07-17 18:11 | External Medical Summary | Summary of Care ---
Author Name Unknown Organization [facility] Address [address] [facility] [place] [address] Phone [phone] Care Team Providers Care Skin Care Technician Name Role Phone Mich Browne PA-C Primary Care Provide r Reason for Visit * Reason Comments Outpatient Testing Encounter Details Date Type Department Care Team (Late st Contact Info) Description 03/18/2024 9:00 AM EDT Laboratory Laboratory [facility] [place] [address] [facility] [place] [phone] [place], [facility] [address] [place] [address] Actinic keratosis; Acute deep vein thrombosis (DVT) of axillary vein of left upper extremity (HCC); Eosinophilia, unspecified type; Gilbert's disease; History of basal cell carcinoma; History of dysplastic nevus; HX TRAUMATIC FRACTURE, LFT LEG; History of nonmelanoma skin cancer; Mixed hyperlipidemia; Nocturia ; Non-recurrent unilateral inguinal hernia without obstruction or gangrene; S/P angioplasty with stent; Vitamin D deficiency; Status post placement of implantable loop recorder; 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 Active nitroglycerin (NITROSTAT) 0.4 MG SUBL 03/15/2019 Active Cholecalciferol (VITAMIN D) 50 MCG (2000 UT) Capsule Take 2,000 Units by mouth [...] as of this encounter (statuses as of 03/18/2024) Active Problems Problem Noted Date Diagnosed Date Coronary artery disease invo lving [place] coronary artery of [place] heart without angina pectoris 08/12/2023 LISA (obstructive [...] as of this encounter (statuses as of 03/18/2024) Resolved Problems Problem Noted Date Diagnosed Date [...] eruption 08/17/2010 01/21/2022 DERMATITIS 08/13/2010 01/21/2022 SEPTIC [id number] 08/13/201001/03 Abnormal electrocardiogram 11/23/2009 0 2023 Loss of height 11/23/2009 01/21/2022 documented as of this encounter (statuses as of 03/18/2024) Immunizations Name Administration Dates Next Due COVID-19 mRNA, LNP-s, No Pre serve, 2-Dose Series ([employer]) 09/12/2020,08/14/2020 PPD 02/16/2023 Pneumococcal Conjugate Vaccine, 20-valent [...] Care Team (Late st Contact Info) Description 03/21/2024 6:15 AM EDT Anticoagulation [facility], Rachael Erickson [address] [place] [address] [place] [address] [facility], [address] [place] [address] 05/17/2024 7:45 AM EST Office Visit MOHS Surgery [facility] [address] [place] [address] Kalpana Ellsworth MD [address] [place] [address] 06/14/2024 11:00 AM EST Office Visit Hematology/Oncology [facility] [address] [place] [address] Lawrence Harris MD [address] [facility] [place] [address] 10/10/2024 8:00 AM EDT [facility] [address] [place] [address] Mich Browne PA-C [address] [place] [address] 10/13/2024 9:20 AM EDT Office Visit Dermatology, Alysa Pelayo [address] [place] [address] Jennifer Graham PA-C [address] [place] [address] Pending Results Name Type Priority Associated Diagnoses Date /Time TSH WITH FREE T4 IF INDICATED Lab Routine Actinic keratosis Acute deep vein thrombosis (DVT) of axillary vein of left upper extremity (HCC) Eosinophilia, unspecified type Gilbert's disease History of basal cell carcinoma History of dysplastic nevus HX TRAUMATIC FRACTURE, LFT LEG History of nonmelanoma skin cancer Mixed hyperlipidemia Nocturia Non-recurrent unilateral inguinal hernia without obstruction or gangrene S/P angioplasty with stent Vitamin D deficiency Status post placement of implantable loop recorder 03/18/2024 8:58 AM EDT CBC WITH WBC DIFFERENTIAL Lab Routine Actinic keratosis Acute deep vein thrombosis (DVT) of axillary vein of left upper extremity (HCC) Eosinophilia, unspecified type Gilbert's disease History of basal cell carcinoma History of dysplastic nevus HX TRAUMATIC FRACTURE, LFT LEG History of nonmelanoma skin cancer Mixed hyperlipidemia Nocturia Non-recurrent unilateral inguinal hernia without obstruction or gangrene S/P angioplasty with stent Vitamin D deficiency Status post placement of implantable loop recorder 03/18/2024 8:58 AM EDT HEPATIC FUNCTION PANEL Lab Routine Actinic keratosis Acute deep vein thrombosis (DVT) of axillary vein of left upper extremity (HCC) Eosinophilia, unspecified type Gilbert's disease History of basal cell carcinoma History of dysplastic nevus HX TRAUMATIC FRACTURE, LFT LEG History of nonmelanoma skin cancer Mixed hyperlipidemia Nocturia Non-recurrent unilateral inguinal hernia without obstruction or gangrene S/P angioplasty with stent Vitamin D deficiency Status post placement of implantable loop recorder 03/18/2024 8:58 AM EDT BASIC METABOLIC PANEL Lab Routine Actinic keratosis Acute deep vein thrombosis (DVT) of axillary vein of left upper extremity (HCC) Eosinophilia, unspecified type Gilbert's disease History of basal cell carcinoma History of dysplastic nevus HX TRAUMATIC FRACTURE, LFT LEG History of nonmelanoma skin cancer Mixed hyperlipidemia Nocturia Non-recurrent unilateral inguinal hernia without obstruction or gangrene S/P angioplasty with stent Vitamin D deficiency Status post placement of implantable loop recorder 03/18/2024 8:58 AM EDT PT INR Lab Routine 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 03/18/2024 8:58 AM EDT HEMOGLOBIN A1C Lab Routine Prediabetes Coronary artery disease involving [place] coronary artery of [place] heart without angina pectoris Hyperlipidemia with target LDL less than 70 Acquired hypothyroidism Vitamin D deficiency 03/18/2024 8:58 AM EDT 25-HYDROXY VITAMIN D Lab Routine Prediabetes Coronary artery disease involving [place] coronary artery of [place] heart without angina pectoris Hyperlipidemia with target LDL less than 70 Acquired hypothyroidism Vitamin D deficiency 03/18/2024 8:58 AM EDT CBC Lab Routine Actinic keratosis Acute deep vein thrombosis (DVT) of axillary vein of left upper extremity (HCC) Eosinophilia, unspecified type Gilbert's disease History of basal cell carcinoma History of dysplastic nevus HX TRAUMATIC FRACTURE, LFT LEG History of nonmelanoma skin cancer Mixed hyperlipidemia Nocturia Non-recurrent unilateral inguinal hernia without obstruction or gangrene S/P angioplasty with stent Vitamin D deficiency Status post placement of implantable loop recorder 03/18/2024 8:58 AM EDT DIFFERENTIAL, AUTOMATED Lab Routine Actinic keratosis Acute deep vein thrombosis (DVT) of axillary vein of left upper extremity (HCC) Eosinophilia, unspecified type Gilbert's disease History of basal cell carcinoma History of dysplastic nevus HX TRAUMATIC FRACTURE, LFT LEG History of nonmelanoma skin cancer Mixed hyperlipidemia Nocturia Non-recurrent unilateral inguinal hernia without obstruction or gangrene S/P angioplasty with stent Vitamin D deficiency Status post placement of implantable loop recorder 03/18/2024 8:58 AM EDT Health Maintenance Due Date Last Done Comments Hepatitis C Screening 1973 Cologuard 01/14/2000 Fecal Occult Blood Test 01/14/2000 Sigmoidoscopy 01/14/2000 Zoster Vaccines (1 of 2) 2005 Adult Wellness Visit 2021 Colonoscopy 11/19/2023 11/18/2013 Colorectal Cancer Screening 11/19/2023 COVID-19 Vaccine ( season) 2024 09/12/2020, 08/14/2020 Depression Screening 05/11/2024 05/11/2023 Diabetes Screening 12/10/2026 12/11/2023, 0 12/11/2023, 06/23/2023, Additional history exists DTap/Tdap Vaccines (2 - [...] as of this encounter Visit Diagnoses Diagnosis Actinic keratosis Acute deep vein thrombosis (DVT) of axillary vein of left upper extremity (HCC) Eosinophilia, unspecified type Gilbert's disease Disorders of bilirubin excretion History of basal cell carcinoma Personal history of other malignant neoplasm of skin History of dysplastic nevus Personal history of diseases of skin and subcutaneous tissue HX TRAUMATIC FRACTURE, LFT LEG Personal history of traumatic fracture History of nonmelanoma skin cancer Personal history of other malignant neoplasm of skin Mixed hyperlipidemia Nocturia Nocturia Non-recurrent unilateral inguinal hernia without obstruction or gangrene S/P angioplasty with stent Postsurgical percutaneous transluminal coronary angioplasty status Vitamin D deficiency Unspecified vitamin D deficiency Status post placement of implantable loop recorder Other specified cardiac device in situ 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 No Care Teams Skin Care Technician Relationship Specialty Start Date End Date Mich Browne PA-C [address] [facility] [place] [address] PCP - General Physician Water Mechanic 10/08/23 documented as of this encounter
--- OUTSIDE RECORDS SUMMARY | 2024-07-17 18:11 | External Medical Summary | Summary of Care ---
Author Name Unknown Organization [facility] Address [address] [place] [address] Phone [phone] Care Team Providers Care Knocker Off Name Role Phone Mich Browne PA-C Primary Care Provide r Reason for Visit * Reason Onset Date Comments Order Request 03/17/2024 Encounter Details Date Type Department Care Team (Late st Contact Info) Description 03/17/2024 Telephone Centralized Clinical Pharmacy Services, Rachael Erickson [address] [place] [address] [place] [address] [place] [address] Order Request Allergies Active Allergy Reactions Criticality Noted Date Comments Ceftriaxone Muscle pain,Rash High 08/26/2010 RASH, MYALGIAS, SYNOVITIS documented as of this encounter (statuses as of 03/17/2024) Medications Medication Sig Dispensed Refills Start Date [...] as of this encounter (statuses as of 03/17/2024) Active Problems Problem Noted Date Diagnosed Date Coronary artery disease invo lving [place] coronary artery of [place] heart without angina pectoris 08/12/2023 LISA (obstructive [...] as of this encounter (statuses as of 03/17/2024) Resolved Problems Problem Noted Date Diagnosed Date [...] eruption 08/17/2010 01/21/2022 DERMATITIS 08/13/2010 01/21/2022 SEPTIC [id number] 08/13/201001/03 Abnormal electrocardiogram 11/23/2009 0 2023 Loss of height 11/23/2009 01/21/2022 documented as of this encounter (statuses as of 03/17/2024) Immunizations Name Administration Dates Next Due COVID-19 [...] No 05/11/2023 Does the household have a [facility] source of income? (Household - for ages [...] encounter Miscellaneous Notes * Telephone Encounter - Kalpana Canales RPh - 03/17/2024 8:50 AM EDT PT/INR order signed Kalpana Canales Rph, Pharm.D. Clinical Pharmacist [facility] Clinical Pharmacy Services ([facility]) [phone] 03/17/2024,8:51 AM * Telephone Encounter - Chanel Vaughn CPhT - 03/17/2024 8:[address] PT/INR order in Epic. Thank you, Chanel Vaughn CPhT Social Media Content Specialist II [facility] ([facility]) 03/17/2024,8:50 AM documented in this encounter Plan of Treatment Upcoming Encounters Date Type Department Care Team (Late st Contact Info) Description 03/18/2024 8:20 AM EDT Office Visit [facility], [place] [address] [place] [address] [place] [address] Mich Browne PA-C [address] [facility] [place] [address] 03/21/2024 6:15 AM EDT Anticoagulation [facility], Rachael Erickson [address] [place] [address] [place] [address] [facility], [address] [place] [address] 05/17/2024 7:45 AM EST Office Visit [facility] [address] [facility] [address] Kalpana Ellsworth MD [address] [place] [address] [place] [address] 06/14/2024 11:00 AM EST Office Visit Hematology/Oncology [facility] [address] [facility] [place] [phone] Lawrence Harris MD [address] [facility] [place] [address] 10/13/2024 9:20 AM EDT Office Visit Dermatology, Alsya Pelayo [address] [place] [phone] Jennifer Graham PA-C [address] [place] [address] Scheduled Orders Name Type Priority Associated Diagnoses Orde r Schedule PT INR Lab Routine jail current use of anticoagulant therapy Other, Please specify in Comments field for 26 Occurrences starting 03/17/2024 until 03/17/2025 Health Maintenance Due Date Last Done Comments Hepatitis C Screening 1973 Cologuard 01/14/2000 Fecal Occult Blood Test 01/14/2000 Sigmoidoscopy 01/14/2000 Zoster Vaccines (1 of 2) 2005 Adult Wellness Visit 2021 Colonoscopy 11/19/2023 11/18/2013 Colorectal Cancer Screening 11/19/2023 COVID-19 Vaccine ( season) 2024 09/12/2020, 08/14/2020 Influenza Vaccine (FLU shot) (#1) 2024 04/16/2022 [...] as of this encounter Visit Diagnoses Diagnosis jail current use of anticoagulant therapy- Primary documented in this encounter Advance Directives [...] Power of Attor janice? No Care Teams Knocker Off Relationship Specialty Start Date End Date Mich Browne PA-C [address] [facility] [place] [address] PCP - General Physician Youth Pastor 10/08/23 documented as of this encounter
--- OUTSIDE RECORDS SUMMARY | 2024-07-17 18:11 | External Medical Summary | Summary of Care ---
Author Name Unknown Organization [facility] Address [address] [place] [address] Phone [phone] Care Team Providers Care Staff Midwife Name Role Phone Mich Browne PA-C Primary Care Provide r Reason for Visit * Reason Onset Date Comments Routine Exam Routine exam, of fers no acute concerns today Medication Administration 03/18/2024 Flu an d/or Pneumo Inj Encounter Details Date Type Department Care Team (Late st Contact Info) Description 03/18/2024 8:20 AM EDT Office Visit [facility] [place] [address] [facility] [place] [address] Mich Browne PA-C [address] [place] [address] Prediabetes*; 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; Cardiac pacemaker in situ; LISA (obstructive sleep apnea); Hyperlipidemia with target LDL less than 70; Acquired hypothyroidism; History of recurrent deep vein thrombosis (DVT); Vitamin D deficiency; Actinic keratosis; Need for prophylactic vaccination and inoculation against influenza; Erectile dysfunction, unspecified erectile dysfunction type Allergies Active Allergy Reactions Criticality Noted Date [...] Diagnosed Date Coronary artery disease invo lving cocopah coronary artery of cocopah heart without angina pectoris 08/12/2023 LISA (obstructive [...] eruption 08/17/2010 01/21/2022 DERMATITIS 08/13/2010 01/21/2022 SEPTIC [id number] 08/13/201001/03 Abnormal electrocardiogram 11/23/2009 0 2023 Loss [...] Date Smoking Tobacco: Never Smokeless Tobacco: Never Tobacco Cessation:Counseling Given: No Alcohol Use Standard Drinks/Week Comments Yes 0 [...] on file documented as of this encounter Last Filed Vital Signs Vital Sign Reading Time Taken Comments Blood Pressure 128/80 03/18/2024 8:13 AM EDT Pulse 61 03/18/2024 8:13 AM EDT Temperature 36.3 C (97.3 F) 03/18/2024 8:13 AM ED T Respiratory Rate 20 03/18/2024 8:13 AM EDT Oxygen Saturation 97% 03/18/2024 8:13 AM EDT Inhaled Oxygen Concentration - - Weight 100.6 kg (221 lb 12.8 oz) 03/18/2024 8:13 AM EDT Height 182.9 cm (6') 03/18/2024 8:13 AM EDT Body Mass Index 30.08 03/18/2024 8:13 AM EDT documented in this encounter Progress Notes * Mich Browne PA-C - 03/18/2024 8:25 AM EDT Images from the original note were not included. History of Present Illness Jatin Muñiz is a 69 year old male that presents for routine visit. Denies any acute complaints today. Labs from 12/2023 reviewed - CBC, CMP, TSH all within normal limits; A1c stable at 6.0; LDL at goalat 61; PSA 1.4. Follows with cardiology for history of CAD and presence of permanent pacemaker placed about 2 yearsago. Hx of stent in the LAD about 5-6 [address] ago[address] with Dr. Del Cid. Currently denies any significant cardiac complaints including chest pain, worsening shortness of breath, lightheadedness, palpitations. Can walk > 1 mile at a time. Next pacer appt in 04/2024. - he did have a stress test in 06/2023 which showed normal EF, however he had a moderately sized, moderately severe, reversible defect in the basal and mid anterolateral das consistent with ischemia. He underwent LHC which showed patent stent without need for new PTCA. He follows with Hematology for history of multiple DVTs. Remains on Coumadin and follows with Coumadin Clinic. Blood pressure well-controlled. He follows with sleep medicine for LISA and reports compliance with CPAP. Follows with dermatology for history of BCC. Last visit 10/2023. He is due for colonoscopy in 11/2023. GI states they will be in touch with him. BPH sx's ok, but he does report significant ED. Worse since metoprolol started last year. Advised he talk to cardio about stopping it. Will otherwise start sildenafil - aware NOT to take it within 24hours of nitro, states he's never taken the nitro anyway. He has known LEFT inguinal hernia which we have been watching. Asymptomatic. He wishes to still hold on seeing surgeon still. Knows to call immediately with worsening sx's. 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 90 Tablet 3 Metoprolol Succinate ER 25 MG Oral Tablet Extended Release 24 Hour (toPROL XL) Take 1 Tablet by mouth in the morning. Warfarin Sodium 5 MG Oral Tablet (Jantoven) TAKE 1.5 TABLETS BY MOUTH DAILY DIRECTED BY COUMADINCLINIC ON PHONE 135 Tablet 1 Sildenafil Citrate 100 MG Oral Tablet Take 1 Tablet by mouth daily as needed for Erectile Dysfunction. 10 Tablet 5 No current facility-administered medications for this visit. 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 DERMATITIS 08/13/2010 History of loop recorder HX TRAUMATIC FRACTURE, LFT LEG 08/13/2010 Loss of height 11/23/2009 Rash and nonspecific skin eruption 08/17/2010 SEPTIC [id number] 08/13/2010 TENOSYNOVITIS, RIGHT FOOT 08/18/2010 VASCULITIS 08/18/2010 Venous thrombosis 08/22/2010 Past Surgical History: Procedure Laterality Date CARDIAC STENT PLACEMENT, ATHERECTOMY, 1 VESSEL HC RIGHT HEART CATH KNEE ARTHROSCOPY/SURGERY 07/06/1973 open menisectomy, right Family History Problem Relation Name Age of Onset Cancer Mother pancreas, breast Heart Disorder Mother pacemaker Diabetes Mother Heart Disorder Father bypass surgery Stroke Father Blood Disorder Grandfather (Maternal) Hypertension Grandfather (Maternal) Heart Disorder Grandfather (Maternal) Heart Disorder Grandmother (Paternal) No Known Problems Daughter Family Status Relation Status Mo Fa Sis Alive well MGMA MGFA PGMA PGFA Oma Alive Son Alive Son Alive Social History Socioeconomic History Marital status: Number of children: 3 Tobacco Use Smoking status: Never Smokeless tobacco: Never Vaping Use Vaping status: Never Used Substance and Sexual Activity Alcohol use: Yes Comment: moderation Drug use: No Sexual activity: Yes Partners: Female Social Determinants of Health Financial Resource Strain: Low Risk (05/11/2023) Financial Resource Strain Do you have any trouble paying for your medications, or do you think you might in the future? (Adult - for ages 18 years and over): No Food Insecurity: No Food Insecurity (05/11/2023) Food Insecurity Do you need food for this week? (Adult - for ages 18 years and over): No Transportation Needs: No Transportation Needs (05/11/2023) Transportation Needs Do you have trouble getting a ride to medical visits or work? (Adult - for ages 18 years and over):Never True Social Connections: Socially Integrated (05/11/2023) Social Connections How often do you feel lonely or isolated from those around you? (Adult - for ages 18 years and over): Never Housing Stability: Low Risk (05/11/2023) Housing Stability Do you currently live in a long term or have no steady place to sleep at night? (Adult - for ages 18 years and over): No Do you think you are at risk of becoming homeless? (Adult - for ages 18 years and over): No Review of Systems Constitutional: Negative. Negative for chills and fever. HENT: Negative. Eyes: Negative. Respiratory: Negative. Negative for shortness of breath. Cardiovascular: Negative. Negative for chest pain, palpitations and leg swelling. Gastrointestinal: Negative. Negative for abdominal pain, blood in stool, constipation, diarrhea, nausea and vomiting. Endocrine: Negative. Genitourinary: Negative. Musculoskeletal: Negative. Skin: Negative. Negative for rash. Allergic/Immunologic: Negative. Neurological: Negative. Negative for syncope and light-headedness. Hematological: Negative. Psychiatric/Behavioral: Negative. Negative for dysphoric mood. The patient is not nervous/anxious. All other systems reviewed and are negative. Physical Exam BP 128/80 | Pulse 61 | Temp 36.3 C (97.3 F) (Temporal Artery) | Resp 20 | Ht 1.829 m (6') | Wt 100.6 kg (221 lb 12.8 oz) | SpO2 97% | BMI 30.08 kg/m | BSA 2.26 m Physical Exam Vitals and nursing note reviewed. Constitutional: Appearance: Normal appearance. He is obese. HENT: Head: Normocephalic and atraumatic. Right Ear: Tympanic membrane, ear canal and external ear normal. Left Ear: Tympanic membrane, ear canal and external ear normal. Nose: Nose normal. Mouth/Throat: Mouth: Mucous membranes are moist. Pharynx: Oropharynx is clear. Eyes: Extraocular Movements: Extraocular movements intact. Conjunctiva/sclera: Conjunctivae normal. Pupils: Pupils are equal, round, and reactive to light. Cardiovascular: Rate and Rhythm: Normal rate and regular rhythm. Pulses: Normal pulses. Heart sounds: Normal heart sounds. No murmur heard. Pulmonary: Effort: Pulmonary effort is normal. Breath sounds: Normal breath sounds. No wheezing, rhonchi or rales. Abdominal: General: Abdomen is flat. Bowel sounds are normal. Palpations: Abdomen is soft. Tenderness: There is no abdominal tenderness. There is no guarding or rebound. Musculoskeletal: General: Normal range of motion. Cervical back: Normal range of motion and neck supple. Right lower leg: No edema. Left lower leg: No edema. Skin: General: Skin is warm. Findings: No rash. Neurological: General: No focal deficit present. Mental Status: He is alert and oriented to person, place, and time. Psychiatric: Mood and Affect: Mood normal. Behavior: Behavior normal. Thought Content: Thought content normal. Judgment: Judgment normal. I have reviewed most recent labs BMP results Recent Labs Units 12/11/23 0812 06/23/23 0000 04/10/23 0000 03/31/23 0756 01/09/23 0000 11/26/22 1202 SODIUM - [facility] mmol/L 139 -- -- 144 -- 140 POTASSIUM - [facility] mmol/L 5.1 -- -- 4.5 -- 4.9 POTASSIUM-OUTSIDE LAB -- 4.4 4.5 -- < > -- CHLORIDE - [facility] mmol/L 104 -- -- 106 -- 105 CO2 - [facility] mmol/L 25 -- -- 25 -- 24 CREATININE - [facility] mg/dL 1.2 -- -- 1.2 -- 1.1 CREATININE-OUTSIDE LAB -- 1.20 1.20 -- < > -- BUN - [facility] mg/dL 28* -- -- 28* -- 26* < > = values in this interval not displayed. Lipid panel results Recent Labs Units 12/11/23 0812 06/03/23 0754 03/31/23 0756 09/25/22 0918 04/04/22 0000 CHOLESTEROL - [facility] mg/dL 112 125 133 < > -- CHOLESTEROL-OUTSIDE LAB MG/DL -- -- -- -- 164 LDL (CALCULATED)-OUTSIDE LAB MG/DL -- -- -- -- 106 HDL CHOLESTEROL - [facility] mg/dL 37* 32* 34* < > -- HDL-OUTSIDE LAB MG/DL -- -- -- -- 38 TRIGLYCERIDES - [facility] mg/dL 70 110 122 < > -- TRIGLYCERIDES-OUTSIDE LAB MG/DL -- -- -- -- 101 < > = values in this interval not displayed. CBC results Recent Labs Units 12/11/23 0812 06/23/23 0000 04/10/23 0000 03/31/23 0756 01/09/23 0000 11/26/22 1202 WBC K/uL 5.40 -- -- 7.04 -- 7.51 HGB g/dL 16.6 16.4 16.1 15.7 < > 15.0 HCT % 51.2* -- -- 49.5* -- 46.6 PLT K/uL 286 -- -- 263 -- 340 < > = values in this interval not displayed. HbA1c results Recent Labs Units 12/11/23 0812 06/03/23 0754 03/31/23 075 HEMOGLOBIN A1C - [facility] % 6.0* 5.9* 6.1* TSH results Recent Labs Units 12/11/23 0812 03/31/23 0756 09/25/22 0918 TSH - [facility] uIU/mL 4.11 5.50* 1.90 Vitamin D results Recent Labs Units 09/25/22 09 25-HYDROXY VITAMIN D - [facility] ng/mL 37 Hepatic panel results Recent Labs Units 12/11/23 0812 03/31/23 0756 09/25/22 0918 PROTEIN - [facility] g/dL 6.8 6.6 6.7 BILIRUBIN, TOTAL - [facility] mg/dL 2.5* 1.8* 2.4* ALKALINE PHOSPHATASE - [facility] U/L 47 53 56 AST - [facility] U/L 34 26 24 ALT - [facility] U/L 28 32 25 Protein/cr ratio results No results for input(s): "PROCRRATIO" in the last 62759 hours. Assessment and Plan Prediabetes Most recent lab work quite stable. Plan to repeat prior to next visit. 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 Follows with cardio. Just had heart catheterization earlier this year which showed nonobstructive CAD. - HEMOGLOBIN A1C; Future - BASIC METABOLIC PANEL; Future - TSH WITH FREE T4 IF INDICATED; Future - 25-HYDROXY VITAMIN D; Future Cardiac pacemaker in situ Has an appointment with pacer clinic in the near future. LISA (obstructive sleep apnea) Reports compliance. Hyperlipidemia with target LDL less than 70 Lab work stable. - HEMOGLOBIN A1C; Future - BASIC METABOLIC PANEL; Future - TSH WITH FREE T4 IF INDICATED; Future - 25-HYDROXY VITAMIN D; Future Acquired hypothyroidism Recent TSH normal. - HEMOGLOBIN A1C; Future - BASIC METABOLIC PANEL; Future - TSH WITH FREE T4 IF INDICATED; Future - 25-HYDROXY VITAMIN D; Future History of recurrent deep vein thrombosis (DVT) Continue Coumadin. Follows with Hematology. Vitamin D deficiency - HEMOGLOBIN A1C; Future - BASIC METABOLIC PANEL; Future - TSH WITH FREE T4 IF INDICATED; Future - 25-HYDROXY VITAMIN D; Future Actinic keratosis Follows with Dermatology. Need for prophylactic vaccination and inoculation against influenza - INFLUENZA VAC., TRIVALENT, HD, PF, 65 AND ABOVE, 0.5 ML IM (FLUZONE HD) Erectile dysfunction, unspecified erectile dysfunction type Start sildenafil. Also advised he discuss with his shear operator the possibility of stopping metoprolol as this is likely contributing to his symptoms. Aware of the interaction between sildenafil and nitro - states he has never taken the nitro before anyway, but is otherwise aware not to take these medicines within 24 hours of each other. - Sildenafil Citrate 100 MG Oral Tablet; Take 1 Tablet by mouth daily as needed for Erectile Dysfunction. Wrap-Up Follow Up: Return in about 6 months (around 09/15/2024), or if symptoms worsen or fail to improve, for Return with AP. | For: Return with AP Time: I spent a total of 20-29 minutes (exact time 23 mins) on the date of service in preparation, delivery, and documentation of the care provided to Jatin Muñiz excluding any time spent in the performance of separately billed services. * Janelle Gale LPN - 03/18/2024 8:15 AM EDT PRE - ADMINISTRATION DOCUMENTATION Are you experiencing any cold symptoms or fever? No Have you had Guillain-[place] Syndrome (an illness that causes paralysis) within the last 6 weeks? No Have you had the flu shot in the past? YES Have you ever had a reaction to the flu shot? No Janelle Gale LPN, 03/18/2024 8:15 AM Immunization Administration Documentation Time Out Procedure Performed: Yes Patient Identified (Ask Name/Date of ): Yes Does the patient have a fever greater than 101 degrees today? No Patient allergic to latex? No VFC Stock: No Immunization(s) verified: Yes, Immunization Name: Flu, VIS Sheet(s) given: Yes Verified Side and Site: Yes Verified Shot(s) with Parent(s)/Patient: Yes documented in this encounter Nursing Notes * Janelle Gale LPN - 03/18/2024 8:12 AM EDT Chief Complaint Patient presents with Routine Exam Routine exam, offers no acute concerns today documented in this encounter Plan of Treatment Upcoming Encounters Date Type Department Care Team (Late st Contact Info) Description 03/21/2024 6:15 AM EDT Anticoagulation Central[facility] Clinical [facility] Services, Rachael Erickson [address] [place] [address] [place] [address] [place] [address] 05/17/2024 7:45 AM EST Office Visit [facility] [address] [address] Kalpana Ellsworth MD [address] [place] [address] [place] [address] 06/14/2024 11:00 AM EST Office Visit Hematology/Oncology [facility] [address] [facility] [place] [phone] Lawrence Harris MD [address] [facility] [place] [address] 10/10/2024 8:00 AM EDT Office Visit Family Practice [place] [address] [place] [address] Mich Browne PA-C [address] [place] [address] 10/13/2024 9:20 AM EDT Office Visit Dermatology, [place] [address] [place] [address] Jennifer Graham PA-C [address] [place] [address] Pending Results Name Type Priority Associated Diagnoses Date /Time HEMOGLOBIN A1C Lab Routine Prediabetes 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 Hyperlipidemia with target LDL less than 70 Acquired hypothyroidism Vitamin D deficiency 03/18/2024 8:58 AM EDT 25-HYDROXY VITAMIN D Lab Routine Prediabetes 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 Hyperlipidemia with target LDL less than 70 Acquired hypothyroidism Vitamin D deficiency 03/18/2024 8:58 AM EDT Scheduled Orders Name Type Priority Associated Diagnoses Orde r Schedule HEMOGLOBIN A1C Lab Routine Prediabetes 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 Hyperlipidemia with target LDL less than 70 Acquired hypothyroidism Vitamin D deficiency Expected: 03/18/2024 (Approximate), Expires: 03/18/2025 25-HYDROXY VITAMIN D Lab Routine Prediabetes 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 Hyperlipidemia with target LDL less than 70 Acquired hypothyroidism Vitamin D deficiency Expected: 03/18/2024 (Approximate), Expires: 03/18/2025 Health Maintenance Due Date Last Done Comments [...] as of this encounter Visit Diagnoses Diagnosis Prediabetes- Primary Other abnormal glucose 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 Cardiac pacemaker in situ LISA (obstructive sleep apnea) Obstructive sleep apnea (adult) (pediatric) Hyperlipidemia with target LDL less than 70 Other and unspecified hyperlipidemia Acquired hypothyroidism Unspecified hypothyroidism History of recurrent deep vein thrombosis (DVT) Vitamin D deficiency Unspecified vitamin D deficiency Actinic keratosis Need for prophylactic vaccination and inoculation against influenza Erectile dysfunction, unspecified erectile dysfunction type documented in this encounter Advance Directives * [...] Power of Attor janice? No Care Teams Staff Midwife Relationship Specialty Start Date End Date Mich Browne PA-C [address] [facility] [place] [address] PCP - General Physician Student Career Development Specialist 10/08/23 documented as of this encounter
--- OUTSIDE RECORDS SUMMARY | 2024-07-17 18:11 | External Medical Summary | Summary of Care ---
Author Name Unknown Organization [facility] Address [address] [facility] [address] Phone [phone] Care Team Providers Care Human Resources Training Manager Name Role Phone Mich Browne PA-C Primary Care Provide r Reason for Visit * Reason Comments Dosage Adjustment Via Phone (anticoag Cl inic) Encounter Details Date Type Department Care Team (Late st Contact Info) Description 04/25/2024 6:15 AM EDT Anticoagulation Centralized Clinical Pharmacy Services, Rachael Erickson [address] [place] [address] [place] [address] [place] [address] History of recurrent deep vein thrombosis (DVT)* Allergies Active Allergy Reactions Criticality Noted Date Comments Ceftriaxone Muscle pain,Rash High 08/26/2010 RASH, MYALGIAS, SYNOVITIS documented as of this encounter (statuses as of 04/25/2024) Medications Medication Sig Dispensed Refills Start Date [...] as of this encounter (statuses as of 04/25/2024) Active Problems Problem Noted Date Diagnosed Date Coronary artery disease invo lving [place] coronary artery of [place] heart without angina pectoris 08/12/2023 ILSA (obstructive sleep apnea) 08/12/2023 History of recurrent [...] as of this encounter (statuses as of 04/25/2024) Resolved Problems Problem Noted Date Diagnosed Date [...] eruption 08/17/2010 01/21/2022 DERMATITIS 08/13/2010 01/21/2022 SEPTIC [id number] 08/13/201001/03 Abnormal electrocardiogram 11/23/2009 0 2023 Loss of height 11/23/2009 01/21/2022 documented as of this encounter (statuses as of 04/25/2024) Immunizations Name Administration Dates Next Due COVID-19 mRNA, LNP-s, No Pre serve, 2-Dose Series ([facility]) 09/12/2020,08/14/2020 PPD 02/16/2023 Pneumococcal Conjugate Vaccine, 20-valent [...] this encounter Progress Notes * Yi Burton, [facility] - 04/25/2024 11:21 AM EDT Contacts Contact Date/Time Type Contact Phone/Fax 04/25/2024 11:20 AM EDT Phone (Outgoing) Jatin Muñiz (Self) [phone] (M) Left Message Subjective Advised patient to contact Anticoagulation Clinic if any unusual bruising or bleeding, recent illness, changes in medication, or questions/concerns. PT/INR results, Coumadin dose instructions, and next PT/INR date communicated as noted by Pharmacist: Yes YI BURTON CPhT 04/25/2024, 11:21 AM * Kalpana Canales RP - 04/25/2024 10:55 AM EDT Images from the original note were not included. Coumadin Clinic (region specific) Objective Current Warfarin Dose As of 04/25/2024 Warfarin maintenance plan: 10 mg (5 mg x 2) every Mon, Fri; 7.5 mg (5 mg x 1.5) all other days INR Result As of 04/25/2024 INR goal: 2.0-3.0 INR used for dosin.2 (04/22/2024) Assessment & Plan Warfarin Plan As of 04/25/2024 Full warfarin instructions: 04/25: Hold; Otherwise 10 mg every Mon; 7.5 mg all other days Next INR check: 05/06/2024 Repeat PT/INR in 2 week(s) Weekly dose: decreased Additional Dosing Information: Description [facility] 05/17/24 Tech to contact patient with dose instructions as noted. Kalpana Canales RPh 04/25/2024, 10:55 AM documented in this encounter Plan of Treatment Upcoming Encounters Date Type Department Care Team (Late st Contact Info) Description 05/06/2024 9:00 AM EDT Laboratory Laboratory [place] [address] [place] [phone] Mirian [place] Jitendra [address] [place] [address] 05/09/2024 6:15 AM EST Anticoagulation Centralized Clinical Pharmacy Services, Rachael Erickson [address] [place] [address] [place] [address] [facility] [address] [place] [address] 05/17/2024 7:45 AM EST Office Visit [facility] [address] [place] [address] Kalpana Ellsworth MD [address] [place] [address] 06/14/2024 11:00 AM EST Office Visit Hematology/Oncology [facility] [address] [place] [phone] Lawrence Harris MD [address] [place] [address] 10/10/2024 8:00 AM EDT Office Visit Family Practice [place] [address] [place] [address] Mich Browne PA-C [address] [place] [address] 10/13/2024 9:20 AM EDT Office Visit Dermatology, Alysa [place] [address] [place] [address] Jennifer Graham PA-C [address] [place] [address] Health Maintenance Due Date Last Done Comments [...] Power of Attor janice? No Care Teams Human Resources Training Manager Relationship Specialty Start Date End Date Mich Browne PA-C [address] [facility] [place] [address] PCP - General Physician Central Scheduler 10/08/23 documented as of this encounter
--- OUTSIDE RECORDS SUMMARY | 2024-07-17 18:11 | External Medical Summary ---
Author Name Unknown Address Unknown Organization K01[place] [place] [address] [place] [address] Laboratory Report Ordering Provider Test Date Status LEXX CURRAN 03/18/2024 08:58:05 Final Deficient: <20 ng/mL
Ins ufficient: 20-29 ng/mL
Recommended/Optimum:30-50 ng/mL

Vitamin D intoxication is rare. If suspicious of Vitamin D toxicity, evaluation of serum Calcium and PTH is recommended. Observation Date Value Abnormality Reference (Units ) Status 25-OH Vitamin D total 03/18/2024 08:58:05 41 >19 (ng/mL) Final Performing Location LAB[facility]ATORY [facility] - [address] [place] [address]
--- OUTSIDE RECORDS SUMMARY | 2024-07-17 18:11 | External Medical Summary | Summary of Care ---
Author Name Unknown Organization [facility] Address [address] [facility] [address] Phone [phone] Care Team Providers Care Bridge Worker Apprentice Name Role Phone Mich Browne PA-C Primary Care Provide r Reason for Visit * Reason Comments Dosage Adjustment Via Phone (anticoag Cl inic) Encounter Details Date Type Department Care Team (Late st Contact Info) Description 03/21/2024 6:15 AM EDT Anticoagulation Central[facility] Services, Rachael Erickson [address] [place] [address] [place] [address] [place] [address] History of recurrent deep vein thrombosis (DVT)* Allergies Active Allergy Reactions Criticality Noted Date Comments Ceftriaxone Muscle pain,Rash High 08/26/2010 RASH, MYALGIAS, SYNOVITIS documented as of this encounter (statuses as of 03/21/2024) Medications Medication Sig Dispensed Refills Start Date [...] as of this encounter (statuses as of 03/21/2024) Active Problems Problem Noted Date Diagnosed Date Coronary artery disease invo lving [place] coronary artery of [place] heart without angina pectoris 08/12/2023 LISA (obstructive [...] as of this encounter (statuses as of 03/21/2024) Resolved Problems Problem Noted Date Diagnosed Date [...] eruption 08/17/2010 01/21/2022 DERMATITIS 08/13/2010 01/21/2022 SEPTIC [id number] 08/13/201001/03 Abnormal electrocardiogram 11/23/2009 0 2023 Loss of height 11/23/2009 01/21/2022 documented as of this encounter (statuses as of 03/21/2024) Immunizations Name Administration Dates Next Due COVID-19 mRNA, LNP-s, No Pre serve, 2-Dose Series (Gravity) 09/12/2020,08/14/2020 PPD 02/16/2023 Pneumococcal Conjugate Vaccine, 20-valent [...] Progress Notes * Kalpana Canales RPh - 03/21/2024 3:58 PM EDT Noted will try again tomorrow Kalpana Canales Rph, Pharm.D. Clinical Pharmacist [facility] Services ([facility]) [phone] 03/21/2024,3:58 PM * Yi Burton CPhT - 03/21/2024 3:07 PM EDT Contacts Contact Date/Time Type Contact Phone/Fax 03/21/2024 08:41 AM EDT Phone (Outgoing) Jatin Muñiz (Self) [phone] (M) Left Message - Left generic message to return call 03/21/2024 01:26 PM EDT Phone (Outgoing) Jatin Muñiz (Self) [phone] (M) No Answer/Busy 03/21/2024 02:52 PM EDT Phone (Outgoing) Jatin Muñiz (Self) [phone] (M) Left Message - left generic vm 03/21/2024 03:07 PM EDT Phone (Outgoing) Jatin Muñiz (Self) [phone] (M) Left Message - Left Message to Return Call Unable to contact patient or leave message. Please follow-up later. Thank you, Yi Burton [facility] Cytogeneticist II Centralized Clinical Pharmacy Services ([facility]PS) 03/21/2024,3:08 PM * Kalpana Canales RPh - 03/21/2024 8:17 AM EDT Images from the original note were not included. Coumadin Clinic (region specific) Objective Current Warfarin Dose As of 03/21/2024 Warfarin maintenance plan: 10 mg (5 mg x 2) every Mon, Fri; 7.5 mg (5 mg x 1.5) all other days INR Result As of 03/21/2024 INR goal: 2.0-3.0 INR used for dosin.7 (03/18/2024) Assessment & Plan Warfarin Plan As of 03/21/2024 Full warfarin instructions: 03/21: 20 mg; Otherwise 10 mg every Mon, Fri; 7.5 mg all other days Next INR check: 04/08/2024 Repeat PT/INR in 3 week(s) Weekly dose: not changed Additional Dosing Information: Description [facility] 05/17/24 Tech to contact patient with dose instructions as noted. Kalpana Canales RPh 03/21/2024, 8:17 AM documented in this encounter Plan of Treatment Upcoming Encounters Date Type Department Care Team (Late st Contact Info) Description 03/22/2024 6:15 AM EDT Anticoagulation Centralized Clinical Pharmacy Services, Rachael Erickson [address] [place] [address] [place] [address] [place] [address] 04/08/2024 9:00 AM EDT Laboratory Laboratory [address], [place] [address] [place] [phone] [place] [address] [place] [address] 04/11/2024 6:15 AM EDT Anticoagulation Centralized Clinical Pharmacy Services, [address] [place] [address] [place] [address] 05/17/2024 7:45 AM EST Office Visit [facility] Surgery [place] [address] [place], [place] [phone] Kalpana Ellsworth MD [address] [place] [address] [place] [address] 06/14/2024 11:00 AM EST Office Visit Hematology/Oncology [facility] [address] [place] [phone] Lawrence Harris MD [address] [place], [place] [address] 10/10/2024 8:00 AM EDT Office Visit Family Practice [address], [place] [address] [place] [address] Mich Browne PA-C [address] [place] [address] 10/13/2024 9:20 AM EDT Office Visit Dermatology, Alysa Pelayo [address] [place] [address] Jennifer Graham PA-C [address] [place] [address] Health Maintenance Due Date Last Done Comments [...] Power of Attor janice? No Care Teams Bridge Worker Apprentice Relationship Specialty Start Date End Date Mich Browne PA-C [address] [facility] [place] [address] PCP - General Physician Benzol Still Operator 10/08/23 documented as of this encounter
--- OUTSIDE RECORDS SUMMARY | 2024-07-17 18:11 | External Medical Summary ---
Author Name Unknown Address Unknown Organization K01:[facility] [place] [facility] [place] [address] Laboratory Report Ordering Provider Test Date Status ARCHIE ZAPIEN 03/18/2024 08:58:05 Final Observation Date Value Abnormality Reference (Units ) Status BUN 03/18/2024 08:58:05 28 Above high normal 6-20 (mg/dL) Final Creatinine 03/18/2024 08:58:05 1.2 0.6-1.2 (mg/dL) Final Glomerular filtration rate/1.73 sq M.predicted [Volume Rate/Area] in Serum, Plasma or Blood by Creatinine-based formula (CKD-EPI) 03/18/2024 08:58:05 64 >=60 (mL/min) Final eGFR is calculated based on the CKD-EPI 2020 equation. Sodium 03/18/2024 08:58:05 139 135-146 (m mol/L) Final Potassium 03/18/2024 08:58:05 5.1 3.5-5.1 (m mol/L) Final Cl 03/18/2024 08:58:05 104 98-107 (mm ol/L) Final CO2 03/18/2024 08:58:05 23 22-32 (mmo l/L) Final Anion gap 03/18/2024 08:58:05 12 7-15 (mmol /L) Final Glucose 03/18/2024 08:58:05 79 70-120 (mg /dL) Final Calcium 03/18/2024 08:58:05 9.3 8.4-10.2 ( mg/dL) Final Performing Location [facility] [place] [address] [place] [address]
--- OUTSIDE RECORDS SUMMARY | 2024-07-17 18:11 | External Medical Summary ---
Author Name Unknown Address Unknown Organization K01:[facility] [place] [address] [place] [address] Laboratory Report Ordering Provider Test Date Status ABDELRAHMANCAMWAYNE 04/22/2024 11:58:18 Final Standing order for pt/inr. < br/>Please draw pt/inr every 1 to 4 weeks as requested
Results to [facility]

Warfarin Therapy
INR: 2.0-3.0 conventional anticoagulation
INR: 2.5-3.5 high intensity anticoagulation Observation Date Value Abnormality Reference (Units ) Status PT 04/22/2024 11:58:18 33.3 Above high normal 11 .6-15.2 (seconds) Final INR 04/22/2024 11:58:18 3.2 Above high normal 0. 8-1.2 Final Performing Location [facility] [place] [facility] [address] [facility] [address]
--- OUTSIDE RECORDS SUMMARY | 2024-07-17 18:11 | External Medical Summary ---
Author Name Unknown Address Unknown Organization K01:[facility] [place] [address] [facility] [place] [address] Laboratory Report Ordering Provider Test Date Status ARCHIE ZAPIEN 03/18/2024 08:58:05 Final Observation Date Value Abnormality Reference (Units ) Status SYNC LEUKOCYTES IN BLOOD BY AUTOMATED COUNT 03/18/2024 08:58:05 7.26 4.00-10.80 (K/uL) Final Segs 03/18/2024 08:58:05 49.9 40.0-75.0 (%) Final Lymphs % 03/18/2024 08:58:05 37.1 18.0-42.0 (%) Final Monos 03/18/2024 08:58:05 8.3 1.0-11.0 (%) Final Eosinophils 03/18/2024 08:58:05 3.9 0.0-6.0 (%) Final Basos 03/18/2024 08:58:05 0.4 0.0-2.0 (%) Final Immature Granulocyte, Percent 03/18/2024 08:58:05 0.4 0.0-2.0 (%) Final Absolute Segs 03/18/2024 08:58:05 3.63 1.80-7.70 (K/uL) Final Lymphs, absolute 03/18/2024 08:58:05 2.69 1.00-4.80 (K/ul) Final Monos, Abs 03/18/2024 08:58:05 0.60 0.00-1.10 (K/uL) Final Eos, Abs 03/18/2024 08:58:05 0.28 0.00-0.70 (K/uL) Final Basos, Abs 03/18/2024 08:58:05 0.03 0.00-0.20 (K/uL) Final Immature Granulocytes, Number 03/18/2024 08:58:05 0.03 0.00-0.20 (K/uL) Final Performing Location [facility] [place] - [address] [facility] [address]
--- OUTSIDE RECORDS SUMMARY | 2024-07-17 18:11 | External Medical Summary | Summary of Care ---
Author Name Unknown Organization [facility] Address [address] [facility] [address] Phone [phone] Care Team Providers Care Catering Associate Name Role Phone Mich Browne PA-C Primary Care Provide r Reason for Visit * Reason Comments Dosage Adjustment Via Phone (anticoag Cl inic) Encounter Details Date Type Department Care Team (Late st Contact Info) Description 03/22/2024 6:15 AM EDT Anticoagulation Centralized Clinical Pharmacy Services, Rachael Erickson [address] [place] [address] [place] [address] [place] [address] History of recurrent deep vein thrombosis (DVT)* Allergies Active Allergy Reactions Criticality Noted Date Comments Ceftriaxone Muscle pain,Rash High 08/26/2010 RASH, MYALGIAS, SYNOVITIS documented as of this encounter (statuses as of 03/22/2024) Medications Medication Sig Dispensed Refills Start Date [...] as of this encounter (statuses as of 03/22/2024) Active Problems Problem Noted Date Diagnosed Date Coronary artery disease invo lving [place] coronary artery of [place] heart without angina pectoris 08/12/2023 LISA (obstructive [...] as of this encounter (statuses as of 03/22/2024) Resolved Problems Problem Noted Date Diagnosed Date [...] eruption 08/17/2010 01/21/2022 DERMATITIS 08/13/2010 01/21/2022 SEPTIC [id number] 08/13/201001/03 Abnormal electrocardiogram 11/23/2009 0 2023 Loss of height 11/23/2009 01/21/2022 documented as of this encounter (statuses as of 03/22/2024) Immunizations Name Administration Dates Next Due COVID-19 mRNA, LNP-s, No Pre serve, 2-Dose Series ([employer]) 09/12/2020,08/14/2020 PPD 02/16/2023 Pneumococcal Conjugate Vaccine, 20-valent [...] of this encounter Progress Notes * Kalpana Canales, [facility] - 03/22/2024 9:23 AM EDT Images from the original note were not included. Medication Therapy Disease Management - Anticoagulation Patient: Jatin Muñiz | : 1955 Subjective Contacts Contact Date/Time Type Contact Phone/Fax 03/22/2024 09:22 AM EDT Phone (Incoming) ModestovestaJatin (Self) [phone] (M) Patient-Reported Symptoms: Patient Findings Negatives: Signs/symptoms of bleeding, Change in health, Change in activity, Upcoming invasive procedure, Missed doses, Extra doses, Change in medications, Change in diet/appetite, Bruising Objective Current Warfarin Dose As of 03/22/2024 Warfarin maintenance plan: 10 mg (5 mg x 2) every Mon, Fri; 7.5 mg (5 mg x 1.5) all other days INR Result As of 03/22/2024 INR goal: 2.0-3.0 INR used for dosin.7 (03/18/2024) Assessment & Plan Warfarin Plan As of 03/22/2024 Full warfarin instructions: 03/22: 15 mg; Otherwise 10 mg every Mon, Fri; 7.5 mg all other days Next INR check: 04/08/2024 Repeat PT/INR in 3 week(s) Weekly dose: not changed Additional Dosing Information: Description [facility] 05/17/24 Kalpana Canales [facility] Clinical Pharmacist 03/22/2024, 9:23 AM * Celia Juarez, business representative - 03/22/2024 9:22 AM EDT Contacts Contact Date/Time Type Contact Phone/Fax 03/22/2024 09:22 AM EDT Phone (Incoming) Jatin Muñiz (Self) [phone] (M) Subjective Patient Findings Negatives: Signs/symptoms of bleeding, Change in health, Change in activity, Upcoming invasive procedure, Missed doses, Extra doses, Change in medications, Change in diet/appetite, Bruising Comments: Pt returning missed call from yesterday. Contacted [facility] and she advised 15 mg on 03/22; then continue 10 mg Mon, Fri; 7.5 mg on all other days. Repeat INR on 04/08 Advised patient to contact Anticoagulation Clinic if any unusual bruising or bleeding, recent illness, changes in medication, or questions/concerns. PT/INR results, Coumadin dose instructions, and next PT/INR date communicated as noted by Pharmacist: Yes ORTIZ VILLANUEVA 03/22/2024, 9:22 AM documented in this encounter Plan of Treatment Upcoming Encounters Date Type Department Care Team (Late st Contact Info) Description 04/08/2024 9:00 AM EDT Laboratory Laboratory [place] [address] [place] [phone] [facility] [place] Jitendra [address] [place] [address] 04/11/2024 6:15 AM EDT Anticoagulation Centralized Clinical Pharmacy Services, Rachael Erickson [address] [place] [address] [place] [address] [place] [address] 05/17/2024 7:45 AM EST Office Visit [facility] [address] [facility] [address] [place] [address] Kalpana Ellsworth MD [address] [place] [address] [place] [address] 06/14/2024 11:00 AM EST Office Visit Hematology/Oncology [facility] [address] [facility] [address] [place] [phone] Lawrence Harris MD [address] [facility] [address] [place] [address] 10/10/2024 8:00 AM EDT Office Visit Family Practice [place] Jitendra, [place] [address] [place] [phone] Mich Browne PA-C [address] [place] [address] 10/13/2024 9:20 AM EDT Office Visit Dermatology, Alysa Pelayo [address] [place] [address] Jennifer Graham PA-C [address] [place] [address] Health Maintenance Due Date Last Done Comments [...] Power of Attor janice? No Care Teams Catering Associate Relationship Specialty Start Date End Date Mich Browne PA-C [address] [facility] [place] [phone] PCP - General Physician Pattern Puncher 10/08/23 documented as of this encounter"
--- OUTSIDE RECORDS SUMMARY | 2024-07-17 18:11 | External Medical Summary | Summary of Care ---
Author Name Unknown Organization [facility] Address [address] [facility] [place] [address] Phone [phone] Care Team Providers Care Supervisor In Circuit Testing Name Role Phone Mich Browne PA-C Primary Care Provide r Reason for Visit * Reason Comments Dosage Adjustment Via Phone (anticoag Cl inic) Encounter Details Date Type Department Care Team (Late st Contact Info) Description 04/11/2024 6:15 AM EDT Anticoagulation Centralized Clinical Pharmacy Services, Rachael Erickson [address] [place] [address] [place] [address] [place] [address] History of recurrent deep vein thrombosis (DVT)* Allergies Active Allergy Reactions Criticality Noted Date Comments Ceftriaxone Muscle pain,Rash High 08/26/2010 RASH, MYALGIAS, SYNOVITIS documented as of this encounter (statuses as of 04/11/2024) Medications Medication Sig Dispensed Refills Start Date [...] as of this encounter (statuses as of 04/11/2024) Active Problems Problem Noted Date Diagnosed Date Coronary artery disease invo lving [place] coronary artery of [place] heart without angina pectoris 08/12/2023 LISA (obstructive [...] as of this encounter (statuses as of 04/11/2024) Resolved Problems Problem Noted Date Diagnosed Date [...] eruption 08/17/2010 01/21/2022 DERMATITIS 08/13/2010 01/21/2022 SEPTIC [id number] 08/13/201001/03 Abnormal electrocardiogram 11/23/2009 0 2023 Loss of height 11/23/2009 01/21/2022 documented as of this encounter (statuses as of 04/11/2024) Immunizations Name Administration Dates Next Due COVID-19 mRNA, LNP-s, No Pre serve, 2-Dose Series (Tomveyi Bidamon) 09/12/2020,08/14/2020 PPD 02/16/2023 Pneumococcal Conjugate Vaccine, 20-valent [...] Progress Notes * Kalpana Canales RPh - 04/11/2024 10:00 AM EDT Agree with plan. Kalpana Canales Rph, Pharm.D. Clinical Pharmacist [facility] [phone] 04/11/2024,10:00 AM * Martha Menezes, PHARM Student - 04/11/2024 9:39 AM EDT Images from the original note were not included. Medication Therapy Disease Management - Anticoagulation Patient: Jatin Ross Cathyvikas | : 1955 Subjective Contacts Contact Date/Time Type Contact Phone/Fax 04/11/2024 11:27 AM EDT Phone (Outgoing) Jatin Muñiz (Self) [phone] (M) Left Message Patient-Reported Symptoms: Objective Current Warfarin Dose As of 04/11/2024 Warfarin maintenance plan: 10 mg (5 mg x 2) every Mon, Fri; 7.5 mg (5 mg x 1.5) all other days INR Result As of 04/11/2024 INR goal: 2.0-3.0 INR used for dosin.9 (04/08/2024) Assessment & Plan Warfarin Plan As of 04/11/2024 Full warfarin instructions: 04/11: Hold; Otherwise 10 mg every Mon, Fri; 7.5 mg all other days Next INR check: 04/22/2024 Repeat PT/INR in 2 week(s) Weekly dose: not changed Additional Dosing Information: Description [facility] 05/17/24 Martha Menezes, PHARM Student Clinical Pharmacist 04/11/2024, 9:39 AM documented in this encounter Plan of Treatment Upcoming Encounters Date Type Department Care Team (Late st Contact Info) Description 04/22/2024 9:00 AM EDT Laboratory Laboratory [place] Chani [address] [place] [place] [phone] Mirian Wil[address] [place] Jitendra [address] [place] [place] [address] 04/25/2024 6:15 AM EDT Anticoagulation Centralized Clinical Pharmacy Services, Rachael Erickson [address] [place] [address] [place] [address] [place] [address] 05/17/2024 7:45 AM EST Office Visit [facility] Surgery [employer] [address] [place] [address] Kalpana Ellsworth MD [address] [place] [address] 06/14/2024 11:00 AM EST Office Visit Hematology/Oncology [facility] [address] [place] [phone] Lawrence Harris MD [address] [facility] [place] [address] 10/10/2024 8:00 AM EDT Office Visit Family Practice [place] Chani [address] [place] [place] [address] Mich Browne PA-C [address] [place] [place] [address] 10/13/2024 9:20 AM EDT Office Visit Dermatology, Alysa Pelayo [address] [place] [address] Jennifer Graham PA-C [address] [place] [address] Health Maintenance Due Date Last Done Comments [...] of Attor janice? No Care Teams Supervisor In Circuit Testing Relationship Specialty Start Date End Date Mich Browne PA-C [address] [facility] [place] [address] PCP - General Physician Full Charge Bookkeeper 10/08/23 documented as of this encounter"
--- OUTSIDE RECORDS SUMMARY | 2024-07-17 18:11 | External Medical Summary ---
Author Name Unknown Address Unknown Organization K01:[facility]ORY [facility] [place] [facility] [address] [facility] [address] Laboratory Report Ordering Provider Test Date Status ARCHIE ZAPIEN 03/18/2024 08:58:05 Final Observation Date Value Abnormality Reference (Units ) Status TSH 03/18/2024 08:58:05 3.23 0.27-4.20 (uIU/mL) Final Performing Location [facility]ORY [facility] [place] - [address] [facility] [address]
--- OUTSIDE RECORDS SUMMARY | 2024-07-17 18:12 | External Medical Summary ---
Author Name Unknown Address Unknown Organization K01:[facility] [place] [address] [place] [address] Laboratory Report Ordering Provider Test Date Status SEYMOUR BACH 02/08/2024 08:08:02 Final Warfarin Therapy
INR: 2 .0-3.0 conventional anticoagulation
INR: 2.5- 3.5 high intensity anticoagulation Observation Date Value Abnormality Reference (Units ) Status PT 02/08/2024 08:08:02 26.9 Above high normal 11 .6-15.2 (seconds) Final INR 02/08/2024 08:08:02 2.5 Above high normal 0. 8-1.2 Final Performing Location [facility] [facility] [place] [address] [place] [address]
--- OUTSIDE RECORDS SUMMARY | 2024-07-17 18:12 | External Medical Summary | Summary of Care ---
Author Name Unknown Organization [facility] Address [address] [facility] [place] [address] Phone [phone] Care Team Providers Care Engineering Consultant Name Role Phone Mich Browne PA-C Primary Care Provide r Reason for Visit * Reason Comments Outpatient Testing Encounter Details Date Type Department Care Team (Late st Contact Info) Description 02/08/2024 8:20 AM EDT Laboratory Laboratory [facility] [place] [address] [facility] [place] [phone] [place], [facility] [address] [place] [address] Acute deep vein thrombosis (DVT) of axillary vein of left upper extremity (HCC); Anticoagulation management encounter; [facility] current use of anticoagulant therapy Allergies Active Allergy Reactions Criticality Noted Date Comments Ceftriaxone Muscle pain,Rash High 08/26/2010 RASH, MYALGIAS, SYNOVITIS documented as of this encounter (statuses as of 02/08/2024) Medications Medication Sig Dispensed Refills Start Date End Date Status Aspirin 81 MG Tablet Take 1 Tablet by mouth in the morning. Active nitroglycerin (NITROSTAT) 0.4 MG SUBL 03/15/2019 Active Cholecalciferol (VITAMIN D) 50 MCG (1999 [...] as of this encounter (statuses as of 02/08/2024) Active Problems Problem Noted Date Diagnosed Date Coronary artery disease invo lving nenana coronary artery of nenana heart without angina pectoris 08/12/2023 LISA (obstructive [...] as of this encounter (statuses as of 02/08/2024) Resolved Problems Problem Noted Date Diagnosed Date [...] eruption 08/17/2010 01/21/2022 DERMATITIS 08/13/2010 01/21/2022 SEPTIC [id number] 08/13/201001/03 Abnormal electrocardiogram 11/23/2009 0 2023 Loss of height 11/23/2009 01/21/2022 documented as of this encounter (statuses as of 02/08/2024) Immunizations Name Administration Dates Next Due COVID-19 mRNA, LNP-s, No Pre serve, 2-Dose Series (WHILL) 09/12/2020,08/14/2020 PPD 02/16/2023 Pneumococcal Conjugate Vaccine, 20-valent [...] No 05/11/2023 Does the household have a [facility] source of income? (Household - for ages [...] Contact Info) Description 02/09/2024 6:15 AM EDT [facility], Rachael Erickson [address] [place] [address] [place] [address] [place] [address] 03/18/2024 8:20 AM EDT Office Visit [facility] [address], [place] [address] [place] [address] Mich Browne PA-C [address] [place] [address] 05/17/2024 7:45 AM EST Office Visit [facility] [address] [place] [address] Kalpana Ellsworth MD [address] [place] [address] 06/14/2024 11:00 AM EST Office Visit Hematology/Oncology [facility] [address] [place] [phone] Lawrence Harris MD [address] [facility] [place] [address] 10/13/2024 9:20 AM EDT Office Visit Dermatology, Alysa Pelayo [address] [place] [address] Jennifer Graham PA-C [address] [place] [address] Pending Results Name Type Priority Associated Diagnoses Date /Time PT INR Lab Routine Acute deep vein thrombosis (DVT) of axillary vein of left upper extremity (HCC) Anticoagulation management encounter [facility] current use of anticoagulant therapy 02/08/2024 8:08 AM EDT Health Maintenance Due Date Last Done Comments Hepatitis C Screening 1973 Cologuard 01/14/2000 Fecal Occult Blood Test 01/14/2000 Sigmoidoscopy 01/14/2000 Zoster Vaccines (1 of 2) 2005 COVID-19 Vaccine (3 - season) 2023 09/12/2020, 08/14/2020 Colonoscopy 11/19/2023 11/18/2013 [...] as of this encounter Visit Diagnoses Diagnosis Acute deep vein thrombosis (DVT) of axillary vein of left upper extremity (HCC) Anticoagulation management encounter Encounter for therapeutic drug monitoring emt intermediate current use of anticoagulant therapy documented in [...] Power of Attor janice? No Care Teams Engineering Consultant Relationship Specialty Start Date End Date Mich Browne PA-C [address] [facility] [place] [address] PCP - General Physician Consulting Networking Engineer 10/08/23 documented as of this encounter
[2024-07-17] MEDS ORDERED: ACETAMINOPHEN 325 MG TAB PO PRN (18:16)
[2024-07-17] MEDS: SODIUM CHLORIDE 0.9% 1,000 ML IV SCH (18:22)
[2024-07-17 20:32] LABS: Hematocrit (blood only) 33.6 % (42.0-52.0); Hemoglobin 11.4 g/dl (14.0-18.0)
--- NOTE | 2024-07-17 21:40 | Emergency Department Note ---
History of Present Illness General Chief complaint: Rectal Bleed Stated complaint: RECTAL BLEEDING Time Seen by Provider: 07/17/24 14:06 History of Present Illness Provider Complaint: + melena Onset (ago): 2 day(s) Pain Consistency: + constant Relieved By: + none Exacerbated By: + bowel movement Context: + anticoagulant use (Coumadin) Associated symptoms: no abdominal pain, no nausea, no vomiting, no epistaxis, no fever, no chills, no headaches or no shortness of breath HPI Narrative: Patient reports he was at [facility] on Thursday. He states his hemoglobin was 13 then and they repeated it was 11. He reports they gave him a medication to bring down his INR I wanted to transfer him to [place] but he refused and came here. Home Medications Medication Instructions Recorded Confirmed Type aspirin 81 mg tablet,delayed 81 mg PO DAILY 07/17/24 07/17/24 History release cholecalciferol (vitamin D3) 50 50 mcg PO DAILY 07/17/24 07/17/24 History mcg (2,000 unit) capsule (Vitamin D3) lisinopril 20 mg tablet 10 mg PO DAILY 07/17/24 07/17/24 History metoprolol succinate 25 mg 25 mg PO QAM 07/17/24 07/17/24 History tablet,extended release 24 hr rosuvastatin 5 mg tablet 5 mg PO DAILY 07/17/24 07/17/24 History warfarin 5 mg tablet See Rx Instructions .Route .COMPLEX 07/17/24 07/17/24 History Allergies Allergy/AdvReac Type Severity Reaction Status Date / Time ceftriaxone Allergy Rash and Verified 07/17/24 16:56 muscle pain..per [facility] Past Med/Surg History Problem List (Updated 07/17/24 @ 21:46 by Chema Bliss MD) Melena (Acute) Acute blood loss anemia Gastrointestinal hemorrhage with melena Social History Smoking Status: Never smoker Second Hand Exposure: No; Do You Dip or Chew Tobacco: No; Tobacco Cessation Education Requested by Patient: No Hx Alcohol Use: No Hx Substance Use: No Preferred Language: Japanese Communication Ability: Effective Mechanical Piping Designer Required: No Beliefs That Will Affect Care: None Current Living Situation: Spouse Current Living Situation Comment: Living with Other Information That Helps Us Care for You: No Feels Safe at Home: Yes Safety Concerns: Feels Safe At This Time Assistive Devices: Glasses Assistive Devices Comment: Pace maker Physical Exam 2 Vital Signs: Vital Signs - 24 hr 07/17/24 13:06 07/17/24 14:51 07/17/24 14:54 Temperature 36.8 C Temperature Source Temporal Artery Sc an Pulse Rate 60 63 60 Pulse Rate [Apical ] Pulse Rate from Sp O2 Sensor 57 L Pulse Rhythm Regular Pulse Rhythm [Apic al] Respiratory Rate 20 18 18 Respiratory Effort / Characteristics Respiratory Depth Normal Respiratory Patter n Blood Pressure 115/79 Blood Pressure [Ri ght Arm] Blood Pressure Sujatha n 91 Blood Pressure Sujatha n [Right Arm] Pulse Oximetry 100 99 99 Oxygen Delivery Me thod Room Air Room Air Sepsis Recent Feve r Within 48 Hours No Sepsis New/Unexpla ined Change in Men chris Status No Sepsis Action Take n by Nursing No Action Required 07/17/24 14:55 07/17/24 14:57 07/17/24 15:06 Temperature Temperature Source Pulse Rate 60 60 Pulse Rate [Apical ] 60 Pulse Rate from Sp O2 Sensor 60 Pulse Rhythm Pulse Rhythm [Apic al] Regular Respiratory Rate 14 17 Respiratory Effort / Characteristics Non-Labored Sponta neous Respiratory Depth Normal Respiratory Patter n Regular Blood Pressure Blood Pressure [Ri ght Arm] 112/77 Blood Pressure Sujatha n Blood Pressure Sujatha n [Right Arm] 88 Pulse Oximetry 99 99 Oxygen Delivery Me thod Room Air Sepsis Recent Feve r Within 48 Hours Sepsis New/Unexpla ined Change in Men chris Status Sepsis Action Take n by Nursing 07/17/24 15:12 07/17/24 15:30 07/17/24 15:30 Temperature Temperature Source Pulse Rate 68 63 Pulse Rate [Apical ] Pulse Rate from Sp O2 Sensor 60 59 L Pulse Rhythm Pulse Rhythm [Apic al] Respiratory Rate 17 26 H Respiratory Effort / Characteristics Respiratory Depth Respiratory Patter n Blood Pressure 121/80 Blood Pressure [Ri ght Arm] Blood Pressure Sujatha n 89 Blood Pressure Sujatha n [Right Arm] Pulse Oximetry 98 99 Oxygen Delivery Me thod Sepsis Recent Feve r Within 48 Hours Sepsis New/Unexpla ined Change in Men chris Status Sepsis Action Take n by Nursing 07/17/24 15:30 07/17/24 15:51 07/17/24 16:00 Temperature Temperature Source Pulse Rate 67 Pulse Rate [Apical ] 60 Pulse Rate from Sp O2 Sensor 61 Pulse Rhythm Pulse Rhythm [Apic al] Respiratory Rate 21 17 Respiratory Effort / Characteristics Respiratory Depth Respiratory Patter n Blood Pressure 121/80 Blood Pressure [Ri ght Arm] 114/73 Blood Pressure Sujatha n 89 Blood Pressure Sujatha n [Right Arm] 86 Pulse Oximetry 99 95 Oxygen Delivery Me thod Sepsis Recent Feve r Within 48 Hours Sepsis New/Unexpla ined Change in Men chris Status Sepsis Action Take n by Nursing 07/17/24 16:00 07/17/24 16:00 07/17/24 16:00 Temperature Temperature Source Pulse Rate 60 Pulse Rate [Apical ] Pulse Rate from Sp O2 Sensor 60 Pulse Rhythm Pulse Rhythm [Apic al] Respiratory Rate 13 Respiratory Effort / Characteristics Respiratory Depth Respiratory Patter n Blood Pressure 114/73 114/73 Blood Pressure [Ri ght Arm] Blood Pressure Sujatha n 89 89 Blood Pressure Sujatha n [Right Arm] Pulse Oximetry 98 Oxygen Delivery Me thod Sepsis Recent Feve r Within 48 Hours Sepsis New/Unexpla ined Change in Men chris Status Sepsis Action Take n by Nursing 07/17/24 16:15 07/17/24 16:21 07/17/24 16:27 Temperature Temperature Source Pulse Rate 60 62 60 Pulse Rate [Apical ] Pulse Rate from Sp O2 Sensor 60 61 60 Pulse Rhythm Pulse Rhythm [Apic al] Respiratory Rate 16 22 16 Respiratory Effort / Characteristics Respiratory Depth Respiratory Patter n Blood Pressure Blood Pressure [Ri ght Arm] Blood Pressure Sujatha n Blood Pressure Sujatha n [Right Arm] Pulse Oximetry 100 99 100 Oxygen Delivery Me thod Sepsis Recent Feve r Within 48 Hours Sepsis New/Unexpla ined Change in Men chris Status Sepsis Action Take n by Nursing 07/17/24 16:31 07/17/24 16:39 Temperature Temperature Source Pulse Rate 62 Pulse Rate [Apical ] Pulse Rate from Sp O2 Sensor 60 Pulse Rhythm Pulse Rhythm [Apic al] Respiratory Rate 17 Respiratory Effort / Characteristics Respiratory Depth Respiratory Patter n Blood Pressure 123/76 Blood Pressure [Ri ght Arm] Blood Pressure Sujatha n 86 Blood Pressure Sujatha n [Right Arm] Pulse Oximetry 99 Oxygen Delivery Me thod Sepsis Recent Feve r Within 48 Hours Sepsis New/Unexpla ined Change in Men chris Status Sepsis Action Take n by Nursing Physical Exam: Physical Exam GENERAL: oriented to person, place, and time. appears well-developed and well- nourished. She does not appear distressed. HENT: Exam performed. -Head: Normocephalic and atraumatic. -Right Ear: External ear normal. No mastoid erythema -Left Ear: External ear normal. No mastoid erythema -Mouth/Throat: The oropharynx is clear and moist. No trismus in the jaw. No dental abscesses or uvula swelling. No oropharyngeal exudate or tonsillar abscesses. EYES: Conjunctivae and EOM are normal.Right eye exhibits no discharge. Left eye exhibits no discharge. No scleral icterus. NECK: Normal range of motion. Neck supple. No JVD present. No tracheal deviation and normal range of motion present. CV: Normal rate, regular rhythm, normal heart sounds and intact distal pulses. There is no peripheral edema. Palpable radial pulses bue. PULM/CHEST: Effort normal and breath sounds normal. No respiratory distress. No stridor. no wheezes.no rales. -Chest Wall: no tenderness to palpation ABD: The abdomen is soft. Bowel sounds are normal. no distension. No mass is present. There is no tenderness. There is no rebound, no guarding, no Edwards's sign and no tenderness at McBurney's point. Rovsig negative Rectal: Melanotic stool. Hemoccult positive. MUSC/SKEL: Normal range of motion. There is no peripheral edema, tenderness or deformity. NEURO: Motor and sensation grossly intact. SKIN: Skin is warm and dry. not diaphoretic. PSYCH: normal mood and affect. Behavior is normal. Judgment and thought content normal. Course Course 1406: The patient was evaluated in room C4. A complete history and physical exam was performed Cardiac monitoring: An order was placed for continuous cardiac monitoring. The monitor shows a rate of 60 with paced rhythm interpreted by me 1555: Vital signs stable. On reexamination, no pain on palpation of the abdomen. Labs are within normal limits with a stable hemoglobin of 11.7 and subtherapeutic INR. After long discussion with the patient and his , we decided would be best for the patient to be admitted started on Protonix and be eval by GI for the source of his GI bleed. Administered Medications Pantoprazole Sodium 40 mg/ (Dextrose) 100 mls @ 20 mls/hr IV Q5H JAMES Stop: 08/16/24 16:14 Last Admin: 07/17/24 20:13 Dose: 8 mg/hr, 20 mls/hr Documented By: Infusion: 07/17/24 20:13 Dose: Infused Documented By: Admin: 07/17/24 17:01 Dose: 8 mg/hr, 20 mls/hr Documented By: KARYN Sodium Chloride (Nss) 1,000 mls @ 125 mls/hr IV .Q8H JAMES Stop: 07/18/24 16:59 Last Admin: 07/17/24 18:22 Dose: 125 mls/hr Documented By: MTN Discontinued Medications Pantoprazole Sodium 80 mg/ (Dextrose) 120 mls @ 480 mls/hr IV NOW ONE Stop: 07/17/24 16:07 Last Infusion: 07/17/24 17:04 Dose: Infused Documented By: Admin: 07/17/24 16:43 Dose: 480 mls/hr Documented By: KARYN Pantoprazole Sodium (Pantoprazole Bolus/Drip) 1 each IV NOW STA Stop: 07/17/24 15:54 Last Admin: 07/17/24 16:43 Dose: Not Given Documented By: KARYN Medical Decision Making Laboratory Data Attestation: I reviewed the patient's lab results. 07/17/24 20:14 07/17/24 13:44 Lab Results 07/17/24 07/17/24 Range/Units 13:44 13:58 WBC 9.02 (4.8-10.8) K/ul RBC 4.02 L (4.70-6.10) M/uL Hgb 11.7 L (14.0-18.0) g/dl Hct 34.7 L (42.0-52.0) % MCV 86.3 (80.0-100.0) fL MCH 29.1 (25.0-34.0) pg MCHC 33.7 (32.0-36.0) g/dL RDW Std Deviation 41.5 (36.4-46.3) fL RDW Coeff of Rosa 13.4 (11.5-14.5) % Plt Count 292 (130-400) K/uL MPV 10.1 (9.4-12.4) fL PT 12.0 (9.0-12.0) Seconds INR 1.1 (0.9-1.1) APTT 23 (21-31) Seconds PTT Ratio 0.9 Sodium 140 (136-145) mmol/L Potassium 4.3 (3.5-5.1) mmol/L Chloride 109 H (98-107) mmol/L Carbon Dioxide 26 (21-32) mmol/L Anion Gap 5 (3-11) BUN 36 H (6-23) mg/dl Creatinine 1.12 (0.6-1.4) mg/dl Est Cr Clr Drug Dosing 76.5 ml/min eGFR 71.11 BUN/Creatinine Ratio 32.1 H (10-20) Glucose 96 (70-99(Fasting)) mg/dl Calcium 8.8 (8.6-10.3) mg/dl Total Bilirubin 2.0 H (0.2-1.0) mg/dl AST 19 (13-39) U/L ALT 23 (7-52) U/L Alkaline Phosphatase 39 (34-104) U/L Total Protein 6.5 (6.0-8.3) gm/dl Albumin 4.1 (3.4-5.0) gm/dl Globulin 2.4 L (2.5-4.0) gm/dl Albumin/Globulin Ratio 1.7 (0.9-2) Blood Type O Negative Antibody Screen NEGATIVE [facility] Narrative 1406: The patient was evaluated in room C4. A complete history and physical exam was performed Cardiac monitoring: An order was placed for continuous cardiac monitoring. The monitor shows a rate of 60 with paced rhythm interpreted by me 1555: Vital signs stable. On reexamination, no pain on palpation of the abdomen. Labs are within normal limits with a stable hemoglobin of 11.7 and subtherapeutic INR. After long discussion with the patient and his , we decided would be best for the patient to be admitted started on Protonix and be eval by GI for the source of his GI bleed. Impression & Plan Melena Discharge Plan Visit Data Chief Complaint: Rectal Bleed Stated Complaint: RECTAL BLEEDING ED Provider: Chema Bliss Discharge Problem: Melena Patient Disposition: Admitted As Inpatient Discharge Instructions Interventions: ED Discharge Assessment Last Done: 07/17/24 17:32
--- NOTE | 2024-07-17 22:56 | CT Scan Report ---
Exam(s): CT ABDOMEN + PELVIS Without Contrast EXAM: CT Abdomen and Pelvis Without Intravenous Contrast CLINICAL HISTORY: Reason for exam: melena. TECHNIQUE: Axial computed tomography images of the abdomen and pelvis without intravenous contrast. CTDI is 24.84 mGy and DLP is 1360.96 mGy-cm. Automated exposure control was utilized for the study. A dose lowering technique was utilized adhering to the principles of ALARA. COMPARISON: No relevant prior studies available. FINDINGS: Lung bases: Unremarkable. No mass. No consolidation. Heart: Coronary artery calcifications. ABDOMEN: Liver: Unremarkable. Gallbladder and bile ducts: Cholelithiasis without evidence of acute cholecystitis. No ductal dilation. Pancreas: Unremarkable. No ductal dilation. Spleen: Unremarkable. No splenomegaly. Adrenals: Unremarkable. No mass. Kidneys and ureters: Unremarkable. No obstructing stones. No hydronephrosis. Stomach and bowel: Unremarkable. No obstruction. No mucosal thickening. PELVIS: Appendix: No findings to suggest acute appendicitis. Bladder: Unremarkable. No stones. Reproductive: Unremarkable as visualized. ABDOMEN and PELVIS: Intraperitoneal space: Unremarkable. No free air. No significant fluid collection. Bones/joints: No acute fracture. No dislocation. Soft tissues: Unremarkable. Vasculature: See above. Lymph nodes: Unremarkable. No enlarged lymph nodes. Tubes, lines and devices: Intracardiac leads. IMPRESSION: No acute findings in the abdomen or pelvis. Electronically signed by: Dago Mixon MD 07/17/24 22:55 PM
[2024-07-18 02:42] LABS: Hematocrit (blood only) 30.2 % (42.0-52.0); Hemoglobin 10.3 g/dl (14.0-18.0)
[2024-07-18 02:55] LABS: BUN Creatinine Ratio 27.3 (10-20); Calcium 8.3 mg/dl (8.6-10.3); Creatinine Clr Calc Pharmacy 77.6 ml/min; Potassium 3.9 mmol/L (3.5-5.1)
[2024-07-18 03:04] LABS: INR 1.1 (0.9-1.1); Prothrombin Time 11.9 Seconds (9.0-12.0)
[2024-07-18] MEDS: POTASSIUM CHLORIDE CRTAB 20 MEQ TABCR PO STA (03:10)
[2024-07-18] MEDS: METOPROLOL TARTRATE 25 MG TAB PO STA (03:11)
[2024-07-18] MEDS: MAGNESIUM SULFATE / D5W 1 GM/100 ML BAG IV ONE (03:11)
[2024-07-18 03:22] LABS: Magnesium 1.8 mg/dl (1.7-2.4)
[2024-07-18] MEDS: METOPROLOL SUCC 25MG EXT REL TAB PO SCH (08:14)
[2024-07-18] MEDS: ROSUVASTATIN CALCIUM 5 MG TAB PO SCH (08:14)
[2024-07-18 09:31] LABS: Hematocrit (blood only) 30.6 % (42.0-52.0); Hemoglobin 10.6 g/dl (14.0-18.0)
--- NOTE | 2024-07-18 09:55 | Gastrointestinal Consultation ---
Date of Consultation July 18, 2024 Assessment & Plan (1) Melena: Plan - patient is agreeable to having an EGD to further evaluate his melena/anemia. will set up for today. - continue to follow hgb/hct. transfuse as needed. - continue with protonix drip. Supervising Physician Co-Signing Physician Notes 69-year-old gentleman with melanotic stools. He is on Coumadin for a left subclavian clot. Tells me his orthotics technician plans on leaving him on. His INR is currently normal. It was elevated 3 years ago. He takes occasional Advil though not frequently. He is on a baby aspirin. He does get heartburn for which he takes Tums. No past history of peptic ulcer disease. He was having some orthostatic symptoms at the onset of his dark stools though feels well at present. Hemoglobin trending down but not in transfusion range. Proceed with EGD today for evaluation of source of bleeding and endoscopic intervention if required. History of Present Illness Reason for Consultation: melena, anemia on coumadin/asa Requesting Physician: Jeovanny Pond MD Attending Physician: Vinh Trujillo DO History of Present Illness Patient is a 69 year old male with a history of recurrent DVT on Coumadin, CAD status post stent placement on aspirin, bradycardia status post pacemaker, who presented to the ED on 07/17 with complaints of melena which started last week. He describes stools as "jet black". Patient went to [place] [facility] for evaluation last Thursday and reportedly had a hgb of 11 and INR 3.0. He was given vitamin K and was advised to be admitted, however patient states he declined admission at the time. He went home and had worsening dizziness which prompted him to come to our ED for evaluation. In ED, his stools tested heme positive with melena stool. hgb on admission was 11.7 and has fallen to 10.3. INR 1.1. He was started on PPI drip and made NPO. Last episode of melena was on Thursday. Last colonoscopy was done at [facility] 10 years ago and was reportedly normal. He has never had an EGD. He has been NPO. Allergies Allergy/AdvReac Type Severity Reaction Status Date / Time ceftriaxone Allergy Rash and Verified 07/17/24 16:56 muscle pain..per [facility] Home Medications Medication Instructions Recorded Confirmed Type aspirin 81 mg tablet,delayed 81 mg PO DAILY 07/17/24 07/17/24 History release cholecalciferol (vitamin D3) 50 50 mcg PO DAILY 07/17/24 07/17/24 History mcg (2,000 unit) capsule (Vitamin D3) lisinopril 20 mg tablet 10 mg PO DAILY 07/17/24 07/17/24 History metoprolol succinate 25 mg 25 mg PO QAM 07/17/24 07/17/24 History tablet,extended release 24 hr rosuvastatin 5 mg tablet 5 mg PO DAILY 07/17/24 07/17/24 History warfarin 5 mg tablet See Rx Instructions .Route .COMPLEX 07/17/24 07/17/24 History Patient History Social History Smoking Status: Never smoker Second Hand Exposure: No; Do You Dip or Chew Tobacco: No; Tobacco Cessation Education Requested by Patient: No Hx Alcohol Use: No Hx Substance Use: No Preferred Language: Palestinian Communication Ability: Effective Director Nicu Required: No Beliefs That Will Affect Care: None Current Living Situation: Spouse Current Living Situation Comment: Living with Other Information That Helps Us Care for You: No Feels Safe at Home: Yes Safety Concerns: Feels Safe At This Time Assistive Devices: None Assistive Devices Comment: Pace maker Review of Systems Review of Systems: All systems reviewed & are unremarkable except as noted in HPI & below Physical Exam Constitutional: WD/WN, vitals as above Respiratory: normal respiratory effort, lungs clear to auscultation Cardiovascular: Rate/Rhythm: regular rate and regular rhythm Gastrointestinal (Abdomen): normal bowel sounds, soft, nontender, no hepatosplenomegaly Psychiatric: Orientation: alert and oriented x 3 Results & Data Vital Signs (Past 12 Hours) Vital Signs Temp Pulse Pulse Resp BP Pulse Ox O2 Del Method 07/18/24 07:39 97.5 F L 60 16 110/69 97 Room Air 07/18/24 03:41 97.2 F L 58 L 16 113/68 94 Room Air 07/17/24 23:12 97.3 F L 60 16 123/77 95 Room Air 07/17/24 21:57 60 Coding Level of Care Code 43313 INT INP/OBS CARE 2/55MIN Diagnoses Melena K92.1
--- NOTE | 2024-07-18 13:04 | Hospitalist Progress Note ---
Date of Service July 18, 2024 Assessment & Plan (1) Gastrointestinal hemorrhage with melena: (2) Acute blood loss anemia: (3) Warfarin anticoagulation: (4) LISA (obstructive sleep apnea): Plan Patient presents with acute blood loss anemia melena concern for upper GI bleed Reviewed GI consultation, anticipating EGD today Continue Protonix drip Continue to hold warfarin, patient states that he had been on Eliquis in the past, however there was a suspicion that he may have had an adverse reaction and it was quite expensive for him. Most likely will continue on warfarin therapy. Hemoglobin seems to have stabilized can decrease frequency of testing hemoglobin Continue other medications as prescribed Admission and Anticipated Discharge Date Admission Date: July 17, 2024 Subjective Patient denies any pain or shortness of breath. No further melanotic stools. Denies NSAID use, not a smoker, no significant alcohol use. Reports that due to recurrent DVT he he has been told he will need lifelong anticoagulation Physical Exam Physical Exam: Constitutional: Alert HEENT: Mucous membranes moist. Lungs: Clear to auscultation, decreased, no wheezes rales or rhonchi CV: S1-S2, regular Abdomen: Soft, nontender, nondistended Extremities: No significant edema Neuro: No focal deficits Psych: Cooperative, normal mood Results & Data Results & Data Vital Signs (Past 12 Hours) Vital Signs Temp Pulse Pulse Resp BP Pulse Ox O2 Del Method 07/18/24 12:59 36.5 C 60 16 137/86 99 Room Air 07/18/24 10:42 36.5 C 58 L 16 126/78 99 Room Air 07/18/24 08:00 70 07/18/24 07:39 36.4 C L 60 16 110/69 97 Room Air 07/18/24 03:41 36.2 C L 58 L 16 113/68 94 Room Air Diagnostic Findings Reviewed imaging, laboratory and diagnostic studies. Pertinent findings as below. Hemoglobin 10.6, Improved from 10.3, however somewhat decreased from 11.7 BMP stable
--- NOTE | 2024-07-18 13:14 | Anesthesiology Consultation ---
Date of Service July 18, 2024 Assessment & Plan Chart Review Chart Review: Acceptable Risk for Surgery and Patient NOT seen in Pre Admission Testing Consults Requested none History Surgery Operation Date: 07/18/24 17:20 Proposed Procedures p Esophagogastroduodenoscopy Dr. Milton Rose MD Height/Weight Height: 6 ft Weight: 103.2 kg Allergies Allergy/AdvReac Type Severity Reaction Status Date / Time ceftriaxone Allergy Rash and Verified 07/17/24 16:56 muscle pain..per [facility] Medications Home Medications Medication Instructions Recorded Confirmed Last Taken aspirin 81 mg tablet,delayed 81 mg PO DAILY 07/17/24 07/17/24 Unknown release cholecalciferol (vitamin D3) 50 50 mcg PO DAILY 07/17/24 07/17/24 Unknown mcg (2,000 unit) capsule (Vitamin D3) lisinopril 20 mg tablet 10 mg PO DAILY 07/17/24 07/17/24 Unknown metoprolol succinate 25 mg 25 mg PO QAM 07/17/24 07/17/24 Unknown tablet,extended release 24 hr rosuvastatin 5 mg tablet 5 mg PO DAILY 07/17/24 07/17/24 Unknown warfarin 5 mg tablet See Rx Instructions .Route .COMPLEX 07/17/24 07/17/24 Unknown Active Medications Generic Name Dose Route Start Last Admin Trade Name Freq PRN Reason Stop Dose Admin Pantoprazole Sodium 40 mg/ 100 mls @ 20 mls/hr 07/17/24 16:15 07/18/24 08:13 Dextrose IV 08/16/24 16:14 8 mg/hr Q5H JAMES 20 mls/hr Administration 8 MG/HR Sodium Chloride 1,000 mls @ 80 mls/hr 07/17/24 17:00 07/18/24 01:36 Nss IV 07/18/24 16:59 125 mls/hr .[id number] JAMES Administration Metoprolol Succinate 25 mg 07/18/24 09:00 07/18/24 08:14 Metoprolol Succ 25mg Ext Rel Tab PO 08/17/24 08:59 25 mg QAM JAMES Administration Rosuvastatin Calcium 5 mg 07/18/24 09:00 07/18/24 08:14 Rosuvastatin Calcium 5 Mg Tab PO 08/17/24 08:59 5 mg DAILY JAMES Administration NPO Date Last Intake of Fluids: 07/18/24 Time Last Intake of Fluids: 08:14 Date Last Intake of Solids: 07/17/24 Time Last Intake of Solids: 08:30 Social History Smoking Status: Never smoker Do You Dip or Chew Tobacco: No Hx Alcohol Use: No Hx Substance Use: No Physical Exam Vital Signs Last Vital Signs Temp 36.5 C 07/18/24 12:59 Pulse 60 07/18/24 12:59 Resp 16 07/18/24 12:59 BP 137/86 07/18/24 12:59 Pulse Ox 99 07/18/24 12:59 O2 Del Method Room Air 07/18/24 12:59 Testing Laboratory Results 07/18/24 08:57 07/18/24 02:11 PT 11.9 Seconds (9.0-12.0) 07/18/24 02:11 INR 1.1 (0.9-1.1) 07/18/24 02:11 APTT 23 Seconds (21-31) 07/17/24 13:44 Blood Type O Negative 07/17/24 13:58 Antibody Screen NEGATIVE 07/17/24 13:58
--- NOTE | 2024-07-18 14:26 | GI REPORT ---
[facility] Patient: JACEK CEVALLOS : 1955 Sex at : Male Age: 69 Years Procedure: Upper GI endoscopy Date: 07/18/2024 Attending Physician: Srinath Rose MD Referring MD: Referred Self Indications: - Recent gastrointestinal bleeding - Suspected upper gastrointestinal bleeding - Melena Medications: - Monitored Anesthesia Care Complications: - No immediate complications., No immediate complications. Estimated Blood Loss: - Estimated blood loss was minimal. - Estimated blood loss was minimal. Procedure: - See anesthesia record - The egd scope was introduced through the mouth and advanced to the second part of the duodenum. - The upper GI endoscopy was accomplished without difficulty. - The patient tolerated the procedure well. Findings: - LA Grade B (one or more mucosal breaks greater than 5 mm, not extending between the tops of two mucosal folds) esophagitis with no bleeding was found in the lower third of the esophagus. - Two non-bleeding cratered gastric ulcers with a clean ulcer base (Wilton Class III) were found in the gastric antrum. The largest lesion was 6 mm in largest dimension. Biopsies were taken with a cold forceps for histology. Estimated blood loss was minimal. - The examined duodenum was normal. Impression: - LA Grade B reflux esophagitis with no bleeding. - Non-bleeding gastric ulcers with a clean ulcer base (Wilton Class III). Biopsied. - Normal examined duodenum. Recommendation: - Await pathology results. - Treat H. pylori if present. - 2 small ulcers created in nature with clean base. Patient can resume aspirin today. 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 This should be clarified with his treating physician personnel training officer. If patient requires anticoagulation and aspirin going forward I would recommend long-term ulcer prophylaxis with Protonix 40 mg/day. Patient should avoid even occasional Advil as he notes. Acetaminophen up to 4 tablets can be used for aches or pains. Procedure Code(s): - 28689, Esophagogastroduodenoscopy, flexible, transoral; with biopsy, single or multiple Diagnosis Code(s): - K92.2, Gastrointestinal hemorrhage, unspecified - K92.1, Melena (includes Hematochezia) - K21.00, Gastro-esophageal reflux disease with esophagitis, without bleeding - K25.9, Gastric ulcer, unspecified as acute or chronic, without hemorrhage or perforation CPT(R) - 2023 copyright [employer]. All Rights Reserved. The CPT codes, CCI edits and ICD codes generated are intended as suggestions and were generated based on input data. These codes are preliminary and upon stationary steam engineer review may be revised to meet current compliance and payer requirements. The provider is responsible for the final determination of appropriate codes, and modifiers. Srinath Rose MD This document has been electronically signed. Note Initiated:07/18/2024 Note Completed:07/18/2024 2:26 PM \\[id number]
--- NOTE | 2024-07-18 15:03 | Anesthesiology Progress Note ---
Date of Service July 18, 2024 Anesthesia Post Procedure Vital Signs Vital Signs: Temp Pulse Pulse Resp BP BP BP 07/18/24 14:50 61 16 129/90 07/18/24 14:48 60 16 116/78 07/18/24 14:36 60 16 116/78 07/18/24 14:19 36.5 C 60 18 112/74 07/18/24 12:59 36.5 C 60 16 137/86 07/18/24 10:42 36.5 C 58 L 16 126/78 07/18/24 08:00 70 07/18/24 07:39 36.4 C L 60 16 110/69 07/18/24 03:41 36.2 C L 58 L 16 113/68 07/17/24 23:12 36.3 C L 60 16 123/77 07/17/24 21:57 60 07/17/24 20:22 36.4 C L 60 16 136/82 07/17/24 18:24 36.4 C L 61 16 132/79 07/17/24 18:16 60 07/17/24 17:30 114/75 07/17/24 17:09 65 21 07/17/24 17:00 121/79 07/17/24 17:00 60 20 07/17/24 16:54 63 17 07/17/24 16:48 60 26 H 07/17/24 16:39 62 17 07/17/24 16:31 123/76 07/17/24 16:27 60 16 07/17/24 16:21 62 22 07/17/24 16:15 60 16 07/17/24 16:00 60 13 07/17/24 16:00 114/73 07/17/24 16:00 114/73 07/17/24 16:00 60 17 114/73 07/17/24 15:51 67 21 07/17/24 15:30 121/80 07/17/24 15:30 121/80 07/17/24 15:30 63 26 H 07/17/24 15:12 68 17 07/17/24 15:06 60 17 Pulse Ox O2 Del Method 07/18/24 14:50 96 Room Air 07/18/24 14:48 96 Room Air 07/18/24 14:36 93 Room Air 07/18/24 14:19 94 Room Air 07/18/24 12:59 99 Room Air 07/18/24 10:42 99 Room Air 07/18/24 08:00 07/18/24 07:39 97 Room Air 07/18/24 03:41 94 Room Air 07/17/24 23:12 95 Room Air 07/17/24 21:57 07/17/24 20:22 100 Room Air 07/17/24 18:24 100 Room Air 07/17/24 18:16 07/17/24 17:30 07/17/24 17:09 100 07/17/24 17:00 07/17/24 17:00 98 07/17/24 16:54 99 07/17/24 16:48 99 07/17/24 16:39 99 07/17/24 16:31 07/17/24 16:27 100 07/17/24 16:21 99 07/17/24 16:15 100 07/17/24 16:00 98 07/17/24 16:00 07/17/24 16:00 07/17/24 16:00 95 07/17/24 15:51 99 07/17/24 15:30 07/17/24 15:30 07/17/24 15:30 99 07/17/24 15:12 98 07/17/24 15:06 99 Transfer of Care Handoff Completed per policy Notes Mental Status: alert / awake / arousable and participated in evaluation Patient Amnestic to Procedure: Yes Nausea / Vomiting: adequately controlled Pain: adequately controlled Airway Patency, RR, SpO2: stable & adequate BP & HR: stable & adequate Hydration State: stable & adequate Anesthetic Complications: no major complications apparent and Pt Satisfied with anesthetic care
[2024-07-18] MEDS: PROPOFOL IV EMULSION 10 MG/ML 20 ML VIAL IV ONE (16:38)
[2024-07-18] MEDS: LIDOCAINE 2% 2 ML VIAL/AMP(20MG/ML) INFIL ONE (16:38)
[2024-07-18] MEDS: PANTOprazole 40 MG TAB PO SCH (20:52)
[2024-07-19 07:41] VITALS: RESP 18
[2024-07-19 08:26] LABS: Hematocrit (blood only) 33.5 % (42.0-52.0); Hemoglobin 11.5 g/dl (14.0-18.0); Mean Corpuscular Hemoglobin 29.2 pg (25.0-34.0); Mean Corpuscular Hgb Conc 34.3 g/dL (32.0-36.0); Mean Platelet Volume 10.1 fL (9.4-12.4); Platelet Count 312 K/uL (130-400); RDW Standard Deviation 39.4 fL (36.4-46.3); Red Blood Count 3.94 M/uL (4.70-6.10); White Blood Count 7.31 K/ul (4.8-10.8)
[2024-07-19] MEDS: lisinopril 10 MG TAB PO SCH (08:42)
[2024-07-19] MEDS: ASPIRIN 81 MG ECTAB PO SCH (08:42)
[2024-07-19 08:49] LABS: BUN Creatinine Ratio 17.7 (10-20); Creatinine Clr Calc Pharmacy 76.7 ml/min; Magnesium 2.1 mg/dl (1.7-2.4); Potassium 4.1 mmol/L (3.5-5.1)
[2024-07-19 09:01] LABS: INR 1.1 (0.9-1.1); Prothrombin Time 11.4 Seconds (9.0-12.0)
--- NOTE | 2024-07-19 10:31 | Gastroenterology Progress Note ---
Date of Service July 19, 2024 Assessment & Plan (1) Acute blood loss anemia: (2) Melena: Plan Patient has had no further episodes of melena and his hgb has improved. 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 This should be clarified with his treating physician automobile salesman. If patient requires anticoagulation and aspirin going forward I would recommend long-term ulcer prophylaxis with Protonix 40 mg/day. Patient made aware. Admission and Anticipated Discharge Date Admission Date: July 17, 2024 Supervising Physician Co-Signing Physician Notes Patient dressed getting ready to leave the hospital. He has had no signs or symptoms of active bleeding. We reviewed endoscopic procedure from yesterday which showed 2 small gastric ulcers. This is likely source for her bleeding. Bleeding aggravated by the use of blood thinners. Patient is on aspirin and a blood thinner. Multiple anticoagulant or blood thinning agents do increase risk of gastrointestinal bleeding. Baby aspirin can cause peptic ulceration. If he requires these agents going forward I would recommend long-term PPI therapy. Patient also had significant esophagitis so again long-term PPI probably the best way to go. If his aspirin is discontinued and he is H. pylori negative p otentially could come off PPI therapy 3 to 4 months. Await biopsies for H. pylori. Patient to review with treating physician indication need for ongoing aspirin and blood thinners. Subjective no further melena. he denies any nausea, vomiting, abdominal pain. EGD yesterday with LA-B esophagitis and nonbleeding gastric ulcers. hgb today was improved at 11.5 (previously was 10.6). Review of Systems Review of Systems: All systems reviewed & are unremarkable except as noted in HPI & below Physical Exam Constitutional: WD/WN, vitals as above Respiratory: normal respiratory effort, lungs clear to auscultation Cardiovascular: Rate/Rhythm: regular rate and regular rhythm Gastrointestinal (Abdomen): normal bowel sounds, soft, nontender, no hepatosplenomegaly Psychiatric: Orientation: alert and oriented x 3 Affect: euthymic affect Results & Data Results & Data Vital Signs (Past 12 Hours) Vital Signs Temp Pulse Resp BP Pulse Ox O2 Del Method 07/19/24 07:38 98.4 F 56 L 18 143/70 H 97 Room Air Coding Level of Care Code 41689 SUB INP/OBS CARE 2/35MIN Diagnoses Acute blood loss anemia D62 Melena K92.1
--- NOTE | 2024-07-19 11:12 | Discharge Summary ---
Discharge Summary Date of Service July 19, 2024 Principal Dx & Hospital Course #1 = Principal Diagnosis (1) Gastrointestinal hemorrhage with melena: (2) Gastric ulcer: (3) Esophagitis determined by endoscopy: (4) Acute blood loss anemia: (5) Warfarin anticoagulation: (6) LISA (obstructive sleep apnea): Plan Patient presented to the emergency room with history of melena. Had been seen at another facility and noted to have some anemia. Patient was admitted to the hospital. His warfarin was held and INR was less than 2. GI consultation was obtained. Patient's hemoglobin was trended and remained stable. He did not require blood transfusion. Patient underwent EGD that showed esophagitis and nonbleeding gastric ulcers. He was transition from IV PPI to oral PPI. On the day of discharge his hemoglobin had stabilized and actually had improved. Tolerating his diet. He can be discharged home to follow-up with his PCP and GI provider. Notes For Next Care Provider Follow-up on pathology/biopsy report from EGD Recommend PPI twice daily for 4 to 6 weeks and continue daily. INR per his usual process or Thursday. Medication Changes From Visit Protonix twice daily Admission HPI Per Admitting Provider 69 year old male with history of recurrent DVT on Coumadin, CAD, status post stent placement on aspirin, bradycardia status post pacemaker, other problems below presenting with melena which started last week. Patient reports that he started to have melena last and went to [facility] for evaluation last Thursday. His hemoglobin was found to be 11 and INR 3.0. He was given vitamin K and was advised to be admitted. However patient states he declined admission at the time. He was given vitamin K p.o. to take at home which the patient has been taking. As per patient, he has had no bowel movement since Thursday. Denies abdominal pain, nausea vomiting, fevers or chills. He does report some lightheadedness with ambulation, but no chest pain, shortness of breath. Today at [facility] ER, blood pressure 115/79, heart rate 60, respiratory 20, 100% on room air. Hemoglobin 11.7, INR 1.1 Patient given Protonix drip. On exam patient seen resting in bed, comfortable, doing sudoku puzzles, not in distress. States he feels fine overall, no melena since Thursday, no abdominal pain, nausea or vomiting. No active chest pain, shortness of breath, dizziness, palpitations, etc. Admission Exam Per Admitting Provider See H&P Discharge Exam constitutional: Alert HEENT: Mucous membranes moist. Lungs: Clear to auscultation, decreased, no wheezes rales or rhonchi CV: S1-S2, regular Abdomen: Soft, nontender, nondistended Extremities: No significant edema Neuro: No focal deficits Psych: Cooperative, normal mood Updated Medication List Medication Instructions Recorded Confirmed Type aspirin 81 mg tablet,delayed 81 mg PO DAILY 07/17/24 07/17/24 History release cholecalciferol (vitamin D3) 50 50 mcg PO DAILY 07/17/24 07/17/24 History mcg (2,000 unit) capsule (Vitamin D3) lisinopril 20 mg tablet 10 mg PO DAILY 07/17/24 07/17/24 History metoprolol succinate 25 mg 25 mg PO QAM 07/17/24 07/17/24 History tablet,extended release 24 hr rosuvastatin 5 mg tablet 5 mg PO DAILY 07/17/24 07/17/24 History warfarin 5 mg tablet See Rx Instructions .Route .COMPLEX 07/17/24 07/17/24 History pantoprazole 40 mg tablet,delayed 40 mg PO BID #60 tabs 07/19/24 Rx release Hospital Stay Data Consultations 07/17/24 15:53 ED Decision to Admit Stat 07/17/24 18:16 Consult Gastroenterology Routine Procedures Performed Operation Date: 07/18/24 17:20 Actual Procedures p EGD Biopsy Cytology - Srinath Rose MD Diagnostic Imagining Performed 07/17/24 17:51 CT Abdomen and Pelvis [CT abd pelvis wo con] Routine Reviewed imaging, laboratory and diagnostic studies. Pertinent findings as below. EGD report showed nonbleeding gastric ulcers with clean base and reflux esophagitis with no bleeding. I refer to the full report for details WBC 7.3 Hemoglobin 11.5, improved from 10.3 INR 1.1 Electrolytes within normal range Creatinine 1.13 Pending Results Patient Have Any Pending Studies at Discharge: Yes Discharge Instructions Given to Patient (Per Discharging Provider) Follow-up with GI Total Time Total Time Spent Total Time Spent (In Minutes): 33
[2024-07-19 12:26] VITALS: BP 105/63; PULSE 70; TEMP 98.1; O2SAT 95
--- NOTE | 2024-07-19 22:32 | Electrocardiogram Report ---
Test Reason : Blood Pressure : */* mmHG Vent. Rate : 60 BPM Atrial Rate : 60 BPM P-R Int : 202 ms QRS Dur : 90 ms QT Int : 418 ms P-R-T Axes : 2 -1 17 degrees QTcB Int : 418 ms Atrial-paced rhythm Minimal voltage criteria for LVH, may be normal variant ( R in aVL ) Abnormal ECG No previous ECGs available Confirmed by Zaheer Edwards ([id number]) on 07/19/2024 10:31:41 PM Referred By: REFERRED SELF Confirmed By: Zaheer Edwards
== END 2024-07-19 15:08 | disposition home or self-care (01) | DRG 377 ==
LOC: ED 12:57 → SUATTDRO 16:46 → 2E 16:46 → 3W 07-18 15:39